=== PATIENT | male | born 1970 | race Caucasian/White ===

== ENCOUNTER 2016-08-03 22:17 | Emergency (ER) | payer OTHER ==
[~2016-08-03] VITALS: Ht 180.3 cm; Wt 85.9 kg
[~2016-08-03 22:17] MED LIST: AUGM875T27 PO; CELE20TA PO; CITA20TA2 PO; FLAG500T PO; FLUTISP; HYDR-3713 PO; PEPC1TAB4 PO; PEPT262S PO; PRIL20CA PO; PRIL40CA PO; VIST50CA PO
[2016-08-03 23:00] VITALS: BP 120/58
[2016-08-04 00:45] LABS: BASO # 0.1 K/mm3 (0.0-0.2); BASO % 0.8 % (0.0-1.0); EOS # 0.3 K/mm3 (0.0-0.50); EOS % 3.4 % (0.0-3.0); LARGE UNSTAINED CELL # 0.2 K/mm3 (0.0-0.4); LYMPH # 2.5 K/mm3 (1.5-4.5); LYMPH % 25.6 % (24.0-44.0); MEAN CORPUSCULAR HEMOGLOBIN 31.3 pg (27.0-33.0); MEAN CORPUSCULAR HGB CONC 35.7 g/dl (32.0-36.5); MEAN CORPUSCULAR VOLUME 87.7 fl (80.0-96.0); MONO # 0.8 K/mm3 (0.0-0.8); MONO % 7.8 % (0.0-5.0); NEUTROPHILS % 60.4 % (36.0-66.0); PLATELET COUNT, AUTOMATED 245 k/mm3 (150-450); RED CELL DISTRIBUTION WIDTH 12.4 % (11.5-14.5); WHITE BLOOD COUNT 9.9 K/mm3 (4.0-10.0)
--- NOTE | 2016-08-04 00:51 | REP ---
Clinical: Chest pain and dyspnea. Rule out pneumonia . Comparison: None . Technique: PA and lateral. Findings: The mediastinum and cardiac silhouette are normal. The lung george are clear and without acute consolidation, effusion, or pneumothorax. The skeletal structures are intact and normal. Impression: 1. No acute cardiopulmonary process. Signed by Marquez Borrero MD 08/04/2016 12:43 A
[2016-08-04 01:05] LABS: METHADONE URINE NEGATIVE (NEGATIVE)
[2016-08-04 01:09] LABS: ANION GAP 4 MEQ/L (8-16); BLOOD UREA NITROGEN 19 MG/DL (7-18); CALCIUM LEVEL 9.1 MG/DL (8.5-10.1); CARBON DIOXIDE LEVEL 28 MEQ/L (21-32); CHLORIDE LEVEL 106 MEQ/L (98-107); CREATININE FOR GFR 0.91 MG/DL (0.70-1.30); GLOMERULAR FILTRATION RATE > 60.0 (>60); GLUCOSE, FASTING 98 MG/DL (70-105); MAGNESIUM LEVEL 2.2 MG/DL (1.8-2.4); POTASSIUM SERUM 3.8 MEQ/L (3.5-5.1); SODIUM LEVEL 138 MEQ/L (136-145)
[2016-08-04] MEDS ORDERED: SODIUM CHLORIDE 0.9% 1000 ML IV ONE (01:30)
== END 2016-08-04 01:56 | disposition home or self-care (01) ==
LOC: M ED 23:24
DX: B34.9 Viral infection, unspecified (principal)

== ENCOUNTER 2016-10-24 10:54 | Emergency (ER) | payer MEDICAID, OTHER, SELFPAY ==
[~2016-10-24] VITALS: Ht 180.3 cm; Wt 85.0 kg
[~2016-10-24 10:54] MED LIST changes: -AUGM875T27 PO; +AUGM875T28 PO
[2016-10-24] MEDS ORDERED: IBUP80TA PO (11:55)
[2016-10-24] MEDS ORDERED: ROBA500T PO (11:55)
[2016-10-24] MEDS ORDERED: KETOROLAC 60 MG/2 ML VIAL (J1885) IM ONE (12:00)
[2016-10-24] MEDS ORDERED: METHOCARBAMOL 500 MG TAB PO ONE (12:00)
[2016-10-24 12:35] VITALS: BP 132/71
== END 2016-10-24 12:36 | disposition home or self-care (01) ==
LOC: M ED 10:54
DX: S39.012A Strain of muscle, fascia and tendon of lower back, initial encounter (principal); Z72.0 Tobacco use; X50.1XXA Overexertion from prolonged static or awkward postures, initial encounter; Y92.410 Unspecified street and highway as the place of occurrence of the external cause; Y93.01 Activity, walking, marching and hiking; Y99.9 Unspecified external cause status
CPT/HCPCS: 96372; 99282; J1885

== ENCOUNTER 2017-03-14 17:19 | Emergency (ER) | payer SELFPAY ==
[2017-03-14] MEDS: ONDANSETRON 4 MG ORAL DISINTEGRATING TAB (S0181) PO (21:36)
[2017-03-14 21:50] LABS: KETONE, URINE AUTO RFX 1+ mg/dL (NEGATIVE); LEUKOCYTE ESTERASE UR AUTO RFX NEGATIVE (NEGATIVE); MUCUS, URINE RFX SMALL (NEGATIVE); NITRITE, URINE AUTO RFX NEGATIVE (NEGATIVE); RBC, URINE AUTO RFX 5 /HPF (0-3); SPECIFIC GRAVITY UR AUTO RFX 1.023 (1.002-1.035); SQUAM EPITHELIAL CELL UR AURFX 0 /HPF (0-6); WBC, URINE AUTO RFX 0 /HPF (0-3)
[2017-03-14 22:15] LABS: INFLUENZA A AMPLIFICATION NEGATIVE (NEGATIVE); INFLUENZA B AMPLIFICATION NEGATIVE (NEGATIVE)
[2017-03-14 22:41] LABS: BASO # 0.1 10^3/uL (0.0-0.2); BASO % 0.5 % (0.0-1.0); EOS # 0.2 10^3/uL (0.0-0.50); EOS % 1.5 % (0.0-3.0); HEMATOCRIT 45.2 % (42.0-52.0); HEMOGLOBIN 15.4 g/dl (14.0-18.0); IMMATURE GRANULOCYTE % 0.2 % (0-0); LYMPH # 2.4 10^3/uL (1.5-4.5); LYMPH % 22.5 % (24.0-44.0); MEAN CORPUSCULAR HEMOGLOBIN 29.4 pg (27.0-33.0); MEAN CORPUSCULAR HGB CONC 34.1 g/dl (32.0-36.5); MEAN CORPUSCULAR VOLUME 86.3 fl (80.0-96.0); MONO # 0.9 10^3/uL (0.0-0.8); MONO % 8.7 % (0.0-5.0); NEUTROPHILS % 66.6 % (36.0-66.0); PLATELET COUNT, AUTOMATED 256 10^3/uL (150-450); RED BLOOD COUNT 5.24 10^6/uL (4.30-6.10); RED CELL DISTRIBUTION WIDTH 12.7 % (11.5-14.5); WHITE BLOOD COUNT 10.5 10^3/uL (4.0-10.0)
[2017-03-14 23:01] LABS: ALBUMIN 4.3 GM/DL (3.2-5.2); ALBUMIN/GLOBULIN RATIO 1.02 (1.00-1.93); ALKALINE PHOSPHATASE 87 U/L (45-117); ALT/SGPT 139 U/L (12-78); AMYLASE 52 U/L (25-115); ANION GAP 6 MEQ/L (8-16); AST/SGOT 64 U/L (7-37); BILIRUBIN,DIRECT 0.3 MG/DL (0.0-0.2); BILIRUBIN,TOTAL 1.3 MG/DL (0.2-1.0); BLOOD UREA NITROGEN 13 MG/DL (7-18); CALCIUM LEVEL 9.4 MG/DL (8.5-10.1); CARBON DIOXIDE LEVEL 31 MEQ/L (21-32); CHLORIDE LEVEL 102 MEQ/L (98-107); CREATININE FOR GFR 0.89 MG/DL (0.70-1.30); GLOMERULAR FILTRATION RATE > 60.0 (>60); GLUCOSE, FASTING 93 MG/DL (70-100); LIPASE 129 U/L (73-393); POTASSIUM SERUM 3.8 MEQ/L (3.5-5.1); SODIUM LEVEL 139 MEQ/L (136-145); TOTAL PROTEIN 8.5 GM/DL (6.4-8.2)
== END 2017-03-15 00:55 | disposition home or self-care (01) ==
LOC: M ED 03-15 00:55
DX: K82.4 Cholesterolosis of gallbladder (principal); B19.20 Unspecified viral hepatitis C without hepatic coma; F41.9 Anxiety disorder, unspecified; F33.9 Major depressive disorder, recurrent, unspecified; K21.9 Gastro-esophageal reflux disease without esophagitis; R45.4 Irritability and anger; F10.10 Alcohol abuse, uncomplicated; F12.20 Cannabis dependence, uncomplicated; F17.210 Nicotine dependence, cigarettes, uncomplicated
CPT/HCPCS: 76705

== ENCOUNTER 2017-05-04 12:41 | Emergency (ER) | payer OTHER, SELFPAY ==
[2017-05-04] MEDS: MAGIC MOUTHWASH SUSPENSION BTL SS (14:52)
[2017-05-04] MEDS: BENZONATATE 100 MG CAP PO (15:00)
== END 2017-05-04 15:22 | disposition home or self-care (01) ==
LOC: M ED 12:41
DX: J06.9 Acute upper respiratory infection, unspecified (principal); M54.5 Low back pain; B19.20 Unspecified viral hepatitis C without hepatic coma; K21.9 Gastro-esophageal reflux disease without esophagitis; F17.210 Nicotine dependence, cigarettes, uncomplicated
CPT/HCPCS: 99283

== ENCOUNTER 2017-06-29 14:53 | Emergency (ER) | payer OTHER | END 2017-06-29 16:01 | disposition home or self-care (01) | LOC: M ED 14:53 | DX: K04.7 Periapical abscess without sinus (principal); B19.20 Unspecified viral hepatitis C without hepatic coma; F17.210 Nicotine dependence, cigarettes, uncomplicated | CPT/HCPCS: 99282 ==

== ENCOUNTER 2017-08-31 18:06 | Emergency (ER) | payer OTHER ==
[2017-08-31 20:43] LABS: HEMATOCRIT 45.5 % (42.0-52.0); HEMOGLOBIN 15.6 g/dl (13.5-17.5); MEAN CORPUSCULAR HEMOGLOBIN 30.2 pg (27.0-33.0); MEAN CORPUSCULAR HGB CONC 34.3 g/dl (32.0-36.5); MEAN CORPUSCULAR VOLUME 88.2 fl (80.0-96.0); PLATELET COUNT, AUTOMATED 248 10^3/uL (150-450); RED BLOOD COUNT 5.16 10^6/uL (4.30-6.10); RED CELL DISTRIBUTION WIDTH 12.9 % (11.5-14.5); WHITE BLOOD COUNT 10.3 10^3/uL (4.0-10.0)
[2017-08-31 21:05] LABS: AMPHETAMINES LEVEL URINE NEGATIVE (NEGATIVE); BARBITURATES URINE NEGATIVE (NEGATIVE); BENZODIAZEPINES URINE NEGATIVE (NEGATIVE); CANNABINOIDS URINE POSITIVE (NEGATIVE); COCAINE METABOLITE URINE NEGATIVE (NEGATIVE); METHADONE URINE NEGATIVE (NEGATIVE); OPIATES URINE POSITIVE (NEGATIVE); PHENCYCLIDINE URINE NEGATIVE (NEGATIVE)
[2017-08-31 21:13] LABS: ALBUMIN 4.3 GM/DL (3.2-5.2); ALBUMIN/GLOBULIN RATIO 1.08 (1.00-1.93); ALKALINE PHOSPHATASE 79 U/L (45-117); ALT/SGPT 166 U/L (12-78); ANION GAP 9 MEQ/L (8-16); AST/SGOT 67 U/L (7-37); BILIRUBIN,DIRECT 0.4 MG/DL (0.0-0.2); BILIRUBIN,TOTAL 1.5 MG/DL (0.2-1.0); BLOOD UREA NITROGEN 10 MG/DL (7-18); CALCIUM LEVEL 9.3 MG/DL (8.5-10.1); CARBON DIOXIDE LEVEL 27 MEQ/L (21-32); CHLORIDE LEVEL 106 MEQ/L (98-107); CPK CREATINE PHOSPHOKINASE 479 U/L (39-308); CREATININE FOR GFR 0.97 MG/DL (0.70-1.30); ETHYL ALCOHOL (ETHANOL) 0.003 % (0.000-0.010); GLOMERULAR FILTRATION RATE > 60.0 (>60); GLUCOSE, FASTING 101 MG/DL (70-100); POTASSIUM SERUM 4.1 MEQ/L (3.5-5.1); SALICYLATE LEVEL < 1.7 MG/DL (5.0-30.0); SODIUM LEVEL 142 MEQ/L (136-145); THYROID STIMULATING HORMONE 0.595 uIU/ML (0.358-3.740); TOTAL PROTEIN 8.3 GM/DL (6.4-8.2)
[2017-08-31 21:18] LABS: ACETAMINOPHEN LEVEL < 2.0 UG/ML (10.0-30.0)
== END 2017-08-31 22:04 | disposition home or self-care (01) ==
LOC: M ED 18:06
DX: F41.9 Anxiety disorder, unspecified (principal); F19.10 Other psychoactive substance abuse, uncomplicated; K21.9 Gastro-esophageal reflux disease without esophagitis; F32.9 Major depressive disorder, single episode, unspecified; Z72.0 Tobacco use
CPT/HCPCS: 80320

== ENCOUNTER 2018-01-23 11:11 | Emergency (ER) | payer OTHER | END 2018-01-23 11:48 | disposition home or self-care (01) | LOC: M ED 11:11 | DX: K04.7 Periapical abscess without sinus (principal); R68.84 Jaw pain; K08.89 Other specified disorders of teeth and supporting structures; Z86.19 Personal history of other infectious and parasitic diseases; Z72.0 Tobacco use; Z79.899 Other long term (current) drug therapy | CPT/HCPCS: 99282 ==

== ENCOUNTER 2018-02-07 12:26 | Emergency (ER) | payer OTHER ==
[~2018-02-07] VITALS: Ht 180.3 cm; Wt 81.8 kg
[~2018-02-07 12:26] MED LIST changes: +CLON-412 PO; +FLON1SPR; +HYDR50TA70 PO; +IBUP80TA PO; +MAGICMW MT; +NORCOTAB PO; +OLAN5TAB PO; +PENI500T OR; +PENI500T PO; -PEPC1TAB4 PO; +PEPC1TAB5 PO; +PERC5TAB12 PO; +ROBA500T PO; +SUDA30TA8 PO; +TESS100C PO; +ZOFR4TAB14 PO
--- NOTE | 2018-02-07 13:39 | REP ---
Clinical: Erythema and swelling. Evaluate for abscess. Technique: Real time christensen scale and color evaluation using linear high frequency transducer. Findings: Directed ultrasound examination of the antecubital fossa in the region of maximal erythema and swelling demonstrates a complex subcutaneous collection adjacent to the median cubital vein measuring 3.3 x 1.4 x 2.3 cm suggesting phlegmon/abscess. Impression: Complex collection suggesting phlegmon/abscess. Electronically Signed by Marquez Borrero MD 02/07/2018 01:32 P
[2018-02-07 14:02] LABS: HEMATOCRIT 46.3 % (42.0-52.0); HEMOGLOBIN 15.9 g/dl (13.5-17.5); MEAN CORPUSCULAR HEMOGLOBIN 29.8 pg (27.0-33.0); MEAN CORPUSCULAR HGB CONC 34.3 g/dl (32.0-36.5); MEAN CORPUSCULAR VOLUME 86.9 fl (80.0-96.0); PLATELET COUNT, AUTOMATED 257 10^3/uL (150-450); RED BLOOD COUNT 5.33 10^6/uL (4.30-6.10); WHITE BLOOD COUNT 11.2 10^3/uL (4.0-10.0)
[2018-02-07] MEDS ORDERED: BACT800T5 PO (14:22)
[2018-02-07 14:27] VITALS: BP 136/72
== END 2018-02-07 14:28 | disposition home or self-care (01) ==
LOC: M ED 12:26
DX: L03.114 Cellulitis of left upper limb (principal); B19.20 Unspecified viral hepatitis C without hepatic coma; K21.9 Gastro-esophageal reflux disease without esophagitis; F41.9 Anxiety disorder, unspecified; Z79.899 Other long term (current) drug therapy; F17.210 Nicotine dependence, cigarettes, uncomplicated

== ENCOUNTER 2018-03-23 15:56 | Inpatient (IN) | payer MEDICAID, OTHER ==
[~2018-03-23] VITALS: Ht 180.3 cm; Wt 82.0 kg
[~2018-03-23 15:56] MED LIST changes: +BACT800T5 PO
[2018-03-23 17:26] LABS: HEMATOCRIT 45.6 % (42.0-52.0); HEMOGLOBIN 15.5 g/dl (13.5-17.5); MEAN CORPUSCULAR HEMOGLOBIN 29.8 pg (27.0-33.0); MEAN CORPUSCULAR VOLUME 87.5 fl (80.0-96.0); PLATELET COUNT, AUTOMATED 248 10^3/uL (150-450); RED BLOOD COUNT 5.21 10^6/uL (4.30-6.10); WHITE BLOOD COUNT 10.3 10^3/uL (4.0-10.0)
[2018-03-23 17:46] LABS: ACETAMINOPHEN LEVEL < 2.0 UG/ML (10.0-30.0); ALBUMIN 3.8 GM/DL (3.2-5.2); ALT/SGPT 81 U/L (12-78); BILIRUBIN,DIRECT 0.2 MG/DL (0.0-0.2); BILIRUBIN,TOTAL 0.8 MG/DL (0.2-1.0); BLOOD UREA NITROGEN 14 MG/DL (7-18); CALCIUM LEVEL 8.9 MG/DL (8.5-10.1); CARBON DIOXIDE LEVEL 28 MEQ/L (21-32); CHLORIDE LEVEL 104 MEQ/L (98-107); CREATININE FOR GFR 0.88 MG/DL (0.70-1.30); ETHYL ALCOHOL (ETHANOL) < 0.003 % (0.000-0.010); GLOMERULAR FILTRATION RATE > 60.0 (>60); GLUCOSE, FASTING 92 MG/DL (70-100); SALICYLATE LEVEL < 1.7 MG/DL (5.0-30.0); SODIUM LEVEL 139 MEQ/L (136-145); THYROID STIMULATING HORMONE 0.099 uIU/ML (0.358-3.740); TOTAL PROTEIN 7.1 GM/DL (6.4-8.2)
[2018-03-23 17:50] LABS: AMPHETAMINES LEVEL URINE POSITIVE (NEGATIVE); BARBITURATES URINE NEGATIVE (NEGATIVE); BENZODIAZEPINES URINE NEGATIVE (NEGATIVE); CANNABINOIDS URINE POSITIVE (NEGATIVE); COCAINE METABOLITE URINE NEGATIVE (NEGATIVE); METHADONE URINE NEGATIVE (NEGATIVE); OPIATES URINE NEGATIVE (NEGATIVE); PHENCYCLIDINE URINE NEGATIVE (NEGATIVE)
[2018-03-23 18:08] LABS: FREE T4 1.22 NG/DL (0.76-1.46)
[2018-03-23] MEDS ORDERED: MAALOX 30 ML SUSP *UDC PO PRN (20:15)
[2018-03-23] MEDS ORDERED: MOM 30ML SUSPENSION UDC PO PRN (20:15)
[2018-03-23] MEDS ORDERED: ACETAMINOPHEN TAB 650MG DOSE (2X325MG) PO PRN (20:15)
[2018-03-23 21:59] VITALS: BP 110/69
[2018-03-23] MEDS ORDERED: OLANZapine ORAL DISINTEGRATING TAB 5MG PO PRN (22:30)
[2018-03-24 06:40] VITALS: BP 118/60
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
[2018-03-24 12:17] VITALS: BP 139/60
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
[2018-03-24] MEDS: GABAPENTIN 100 MG CAP PO SCH ×2 (15:18→20:15)
[2018-03-24] MEDS: MUPIROCIN 2% OINT 22 GM TUBE TOP PRN (15:19)
[2018-03-24] MEDS ORDERED: GABAPENTIN 100 MG CAP PO SCH (16:00)
[2018-03-24 18:00] VITALS: BP 119/60
[2018-03-24] MEDS: SERTRALINE HCL 50 MG TAB PO SCH (20:15)
[2018-03-24] MEDS: traZODone 50 MG TAB PO PRN (20:15)
--- NOTE | 2018-03-24 21:43 | ECGEPIP ---
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
[2018-03-25 06:26] VITALS: BP 106/64
[2018-03-25 07:04] LABS: HEMATOCRIT 45.3 % (42.0-52.0); HEMOGLOBIN 15.1 g/dl (13.5-17.5); MEAN CORPUSCULAR HEMOGLOBIN 29.5 pg (27.0-33.0); MEAN CORPUSCULAR HGB CONC 33.3 g/dl (32.0-36.5); MEAN CORPUSCULAR VOLUME 88.5 fl (80.0-96.0); PLATELET COUNT, AUTOMATED 216 10^3/uL (150-450); RED BLOOD COUNT 5.12 10^6/uL (4.30-6.10); WHITE BLOOD COUNT 6.5 10^3/uL (4.0-10.0)
[2018-03-25 07:31] LABS: FREE THYROXINE INDEX 2.2 % (1.4-3.8); THYROID STIMULATING HORMONE 0.35 uIU/ML (0.358-3.740)
[2018-03-25] MEDS: GABAPENTIN 100 MG CAP PO SCH ×3 (08:02→20:06)
--- NOTE | 2018-03-25 11:23 | REP ---
THYROID SONOGRAPHY: HISTORY: Abnormal thyroid function studies. FINDINGS: Thyroid isthmus measures 0.4 cm in thickness. Right lobe dimensions are 5.7 x 1.9 x 2.5 cm. Left lobe measures 5.6 x 2.2 x 1.9 cm. The thyroid gland is not felt to be enlarged. There are multiple focal tiny subcentimeter hypoechoic areas in each thyroid lobe. The largest focal lesion is in the left lobe measuring 0.5 cm in greatest diameter. This is a complex cyst. There is a second 0.5 cm cyst in the upper pole on the left, and a 0.5 cm nodule is seen in the lower pole on the left which appears solid. There are three nodules in the right lobe measuring 0.4, 0.5, and 0.4 cm in greatest diameter, respectively. IMPRESSION: Multiple tiny bilateral thyroid nodules. No suspicious abnormality. Electronically Signed by Sami Landa MD 03/25/2018 10:19 P
[2018-03-25] MEDS: MUPIROCIN 2% OINT 22 GM TUBE TOP PRN (13:26)
--- NOTE | 2018-03-25 15:38 | MHIPNPDOC ---
[facility] Progress Note Progress Note DATE OF SERVICE: 03/25/18 HISTORY OF THE PRESENT ILLNESS: Patient is a 47 -year-old , male, who as per ED records: " pt states, "I'm so sick of my life and I have terrible depression." Pt reports struggling with on-going depression and anxiety. Admits feeling increasingly distressed over the past few weeks due to housing problems. States he is currently homeless and has been staying at the [facility] for the past few months. He apparently got evicted from his apt due to excessive police involvement. He reports frequently getting the police involved due to believing people are following him and "breaking into his apt leaving meth bottles." Pt states, "these people keep following me and I plan to kill them if I can find them." He continues to express SI(no plan) and HI with plan for gunshot. He is not currently in mental health treatment at this time. States he's been seeing [facility] for his substance abuse issues(Marijuana & Meth) and expressed his frustrations to counselor. Pt feels his depression is getting worse and states, "I feel like I'm going backwards instead moving forward." VITAL SIGNS: See below. NEW TEST RESULTS: See below CURRENT MEDICATIONS: See below. MENTAL STATUS EXAM General Appearance: unkempt, hospital scubs/clothing Build: thin Demeanor: preoccupied, guarded Eye Contact: avoidant Activity: anxious Behavior: cooperative, resistant, restless Speech: clear, spontaneous, reg/rate,rhythm,volume Mood: depressed, anxious, irritable Affect: full, appropriate, congruent, anxious Thought Process: logical/linear Thought Content (Delusions): persecutory, paranoia Thought Content (Other): preoccupied, guarded, ideas of reference, appears paranoid Thought Content (Aggressive): other (He has homicidal ideationd and he is very angry, he says if he had a gun with him, he would shoot his entire family) Perception (Hallucinations): none reported Perception (Other): none reported Cognition (Impairment of): none reported Cognition(Intelligence Est.): average Oriented: Awake, Alert, Oriented times three Insight: poor Judgment: Poor Psychosis: Denies ASSESSMENT: Patient was interviewed in the office. He continues to have delusions of paranoia and persecution. He says he wants to "catch" whomever he believes is breaking into his apartment and still has anger that no one in his life believes him. He does not directly admit to homicidal ideations but they are present when discussing whom he believes is breaking in. Paranoia and delusions are present. He has no suicidal ideations. Vital Signs Vital Signs Date Time Temp Pulse Resp B/P (MAP) Pulse Ox O2 Delivery O2 Flow Rate FiO2 03/25/18 06:26 97.9 66 14 106/64 (78) 03/23/18 19:31 97 Room Air Laboratory Data 24H Labs Laboratory Tests 2 03/24/18 17:30: Urine Color YELLOW, Urine Appearance CLEAR, Urine pH 5.0, Urine Specific [place] 1.021, Urine Protein NEGATIVE, Urine Glucose (UA) NEGATIVE, Urine Ketones NEGATIVE, Urine Blood 1+H, Urine Nitrite NEGATIVE, Urine Bilirubin NEGATIVE, Urine Urobilinogen 2.0H, Urine Leukocyte Esterase NEGATIVE, Urine WBC (Auto) 1, Urine RBC (Auto) 4H, Urine Hyaline Casts (Auto) 0, Urine Bacteria (Auto) NEGATIVE, Urine Squamous Epithelial Cells 0, Urine Calcium Oxalate Cryst (Auto) MODERATE, Urine Mucus (Auto) SMALL, Urine Sperm (Auto) 03/25/18 06:47: Nucleated Red Blood Cells % (auto) 0.0, Thyroid Stimulating Hormone (TSH) 0.350L, Free Thyroxine Index 2.2, Thyroxine (T4) 7.0, Triiodothyronine (T3) Uptake 32L CBC/BMP Laboratory Tests 03/25/18 06:47 Red Blood Count 5.12, Mean Corpuscular Volume 88.5, Mean Corpuscular Hemoglobin 29.5, Mean Corpuscular Hemoglobin Concent 33.3, Red Cell Distribution Width 12.6 Current Medications Current Medications Acetaminophen (Tylenol Tab) 650 mg Q6HP PRN PO HEADACHE or DISCOMFORT; Start 03/23/18 at 20:15 Al Hydrox/Mg Hydrox/Simethicone (Mylanta) 30 ml Q4HP PRN PO HEARTBURN/INDIGESTION; Start 03/23/18 at 20:15 Gabapentin (Neurontin) 100 mg TID PO Last administered on 03/25/18at 15:14; Start 03/24/18 at 16:00 Gabapentin (Neurontin) 200 mg TID PO ; Start 03/24/18 at 16:00; Stop 03/24/18 at 16:00; Status DC Home Med (Med Rec Complete!) ASDIRECTED XX ; Start 03/23/18 at 18:30; Stop 03/23/18 at 18:31; Status DC Magnesium Hydroxide (Milk Of Magnesia) 30 ml DAILYPRN PRN PO CONSTIPATION; Start 03/23/18 at 20:15 Mupirocin (Bactroban 2% Ointment) 1 dose BID PRN TOP REDNESS/IRRITATION Last administered on 03/25/18at 13:26; Start 03/24/18 at 10:15 Olanzapine (ZyPREXA ZYDIS) 5 mg Q4HP PRN PO ANXIETY/AGITATION; Start 03/23/18 at 22:30; Stop 03/24/18 at 15:08; Status DC Olanzapine (ZyPREXA ZYDIS) 5 mg Q6HP PRN PO ANXIETY/AGITATION; Start 03/24/18 at 15:15 Paliperidone (Invega) 3 mg BID PO ; Start 03/25/18 at 21:00 Sertraline HCl (Zoloft) 50 mg QHS PO Last administered on 03/24/18at 20:15; Start 03/24/18 at 21:00 Trazodone HCl (Desyrel) 50 mg QHSP PRN PO INSOMNIA Last administered on 03/24/18at 20:15; Start 03/23/18 at 20:15 Allergies Coded Allergies: No Known Drug Allergy (Verified Allergy, Unknown, 03/23/18) GME ATTESTATION GME ATTESTATION My faculty preceptor for this patient encounter was physically present during the encounter and was fully available. All aspects of the patient interview, examination, medical decision making process, and medical care plan development were reviewed and approved by the faculty preceptor. The faculty preceptor is aware and concurs with the plan as stated in the body of this note and will attest to such by his/her cosignature. JOLLY TAI OMS-III Mar 25, 2018 15:38
[2018-03-25 18:00] VITALS: BP 110/73
[2018-03-25] MEDS: SERTRALINE HCL 50 MG TAB PO SCH (20:06)
[2018-03-25] MEDS: traZODone 50 MG TAB PO PRN (20:06)
[2018-03-25] MEDS: PALIPERIDONE 3 MG ER TAB (INVEGA) PO SCH (20:06)
[2018-03-26 06:33] VITALS: BP 111/58
[2018-03-26] MEDS: PALIPERIDONE 3 MG ER TAB (INVEGA) PO SCH ×2 (08:08→20:58)
[2018-03-26] MEDS: GABAPENTIN 100 MG CAP PO SCH ×3 (08:08→20:58)
--- NOTE | 2018-03-26 09:18 | MHIPNPDOC ---
[facility] Progress Note Progress Note DATE OF SERVICE: 03/26/18 HISTORY OF THE PRESENT ILLNESS: Patient is a 47 -year-old , male, who as per ED records: " pt states, "I'm so sick of my life and I have terrible depression." Pt reports struggling with on-going depression and anxiety. Admits feeling increasingly distressed over the past few weeks due to housing problems. States he is currently homeless and has been staying at the [facility] for the past few months. He apparently got evicted from his apt due to excessive police involvement. He reports frequently getting the police involved due to believing people are following him and "breaking into his apt leaving meth bottles." Pt st ates, "these people keep following me and I plan to kill them if I can find them." He continues to express SI(no plan) and HI with plan for gunshot. He is not currently in mental health treatment at this time. States he's been seeing [facility] for his substance abuse issues(Marijuana & Meth) and expressed his frustrations to counselor. Pt feels his depression is getting worse and states, "I feel like I'm going backwards instead moving forward." VITAL SIGNS: See below. NEW TEST RESULTS: Thyroid and neck u/s. Impression: Multiple tiny bilateral thyroid nodules. No suspicious abnormality. CURRENT MEDICATIONS: See below. MENTAL STATUS EXAM General Appearance: unkempt, hospital scubs/clothing Build: thin Demeanor: preoccupied, guarded Eye Contact: avoidant Activity: anxious Behavior: cooperative, resistant, restless Speech: clear, spontaneous, reg/rate,rhythm,volume Mood: depressed, anxious, irritable Affect: full, appropriate, congruent, anxious Thought Process: logical/linear Thought Content (Delusions): persecutory, paranoia Thought Content (Other): preoccupied, guarded, ideas of reference, appears paranoid Thought Content (Aggressive): other (He has homicidal ideations and he is very angry, he says if he he wishes he could go out and buy a gun) Perception (Hallucinations): none reported Perception (Other): none reported Cognition (Impairment of): none reported Cognition(Intelligence Est.): average Oriented: Awake, Alert, Oriented times three Insight: poor Judgment: Poor Psychosis: Denies ASSESSMENT: Patient was interviewed in the office. He continues to have d elusions of paranoia and persecution. Rohith's depressive symptoms are less than what they were on admission. He still has homicidal ideations and discusses his anger and how if he could get a gun he would. He states that today he is more drowsy. He says he went to all the group sessions yesterday and plans to go to them today. He says that at the group yesterday they discussed anger. He did not want to talk to the group about his anger from him believing people are breaking into his apartment, but he says he will continue to talk to us one on one about it. He denies suicidal ideations, denies AV hallucinations. Vital Signs Vital Signs Date Time Temp Pulse Resp B/P (MAP) Pulse Ox O2 Delivery O2 Flow Rate FiO2 03/26/18 06:33 98.9 56 14 111/58 (75) 03/23/18 19:31 97 Room Air Current Medications Current Medications Acetaminophen (Tylenol Tab) 650 mg Q6HP PRN PO HEADACHE or DISCOMFORT; Start 03/23/18 at 20:15 Al Hydrox/Mg Hydrox/Simethicone (Mylanta) 30 ml Q4HP PRN PO HEARTBURN/INDIGESTION; Start 03/23/18 at 20:15 Gabapentin (Neurontin) 100 mg TID PO Last administered on 03/26/18at 08:08; Start 03/24/18 at 16:00 Gabapentin (Neurontin) 200 mg TID PO ; Start 03/24/18 at 16:00; Stop 03/24/18 at 16:00; Status DC Home Med (Med Rec Complete!) ASDIRECTED XX ; Start 03/23/18 at 18:30; Stop 03/23/18 at 18:31; Status DC Magnesium Hydroxide (Milk Of Magnesia) 30 ml DAILYPRN PRN PO CONSTIPATION; Start 03/23/18 at 20:15 Mupirocin (Bactroban 2% Ointment) 1 dose BID PRN TOP REDNESS/IRRITATION Last administered on 03/25/18at 13:26; Start 03/24/18 at 10:15 Olanzapine (ZyPREXA ZYDIS) 5 mg Q4HP PRN PO ANXIETY/AGITATION; Start 03/23/18 at 22:30; Stop 03/24/18 at 15:08; Status DC Olanzapine (ZyPREXA ZYDIS) 5 mg Q6HP PRN PO ANXIETY/AGITATION; Start 03/24/18 at 15:15 Paliperidone (Invega) 3 mg BID PO Last administered on 03/26/18at 08:08; Start 03/25/18 at 21:00 Sertraline HCl (Zoloft) 50 mg QHS PO Last administered on 03/25/18at 20:06; Start 03/24/18 at 21:00 Trazodone HCl (Desyrel) 50 mg QHSP PRN PO INSOMNIA Last administered on 03/25/18at 20:06; Start 03/23/18 at 20:15 Allergies Coded Allergies: No Known Drug Allergy (Verified Allergy, Unknown, 03/23/18) GME ATTESTATION GME ATTESTATION My faculty preceptor for this patient encounter was physically present during the encounter and was fully available. All aspects of the patient interview, examination, medical decision making process, and medical care plan development were reviewed and approved by the faculty preceptor. The faculty preceptor is aware and concurs with the plan as stated in the body of this note and will attest to such by his/her cosignature. JOLLY TAI OMS-III Mar 26, 2018 09:18
[2018-03-26 18:00] VITALS: BP 126/67
[2018-03-26] MEDS: traZODone 50 MG TAB PO PRN (20:58)
[2018-03-26] MEDS: SERTRALINE HCL 50 MG TAB PO SCH (20:58)
[2018-03-27 06:00] VITALS: BP 114/67
[2018-03-27] MEDS: PALIPERIDONE 3 MG ER TAB (INVEGA) PO SCH ×2 (08:19→20:44)
[2018-03-27] MEDS: GABAPENTIN 100 MG CAP PO SCH ×3 (08:19→20:44)
[2018-03-27] MEDS: OLANZapine ORAL DISINTEGRATING TAB 5MG PO PRN (12:24)
[2018-03-27 18:00] VITALS: BP 104/58
[2018-03-27] MEDS: traZODone 50 MG TAB PO PRN (20:44)
[2018-03-27] MEDS: SERTRALINE HCL 50 MG TAB PO SCH (20:44)
[2018-03-28 06:00] VITALS: BP 119/65
[2018-03-28] MEDS: GABAPENTIN 100 MG CAP PO SCH ×3 (08:04→20:41)
[2018-03-28] MEDS: PALIPERIDONE 3 MG ER TAB (INVEGA) PO SCH ×2 (08:04→20:41)
--- NOTE | 2018-03-28 16:48 | MHIPN ---
DATE: 03/27/2018 CHIEF COMPLAINT: Feels anxious. SUBJECTIVE: Is seen for followup in the presence of staff. Says feels a bit anxious, particularly when he sits up, but that otherwise he has been doing better. Says sleep is improved, as has appetite. His mind tends to race, but not as quickly or intensely. He is also not as preoccupied with others trying to harm him. MENTAL STATUS EXAMINATION: He is neat. He is cooperative. There is no agitation. No psychomotor retardation as such. He is coherent with a restricted affect, which shows reactivity. Appears mildly anxious. Denies any suicidal thoughts or intents at present. No homicidal ideas or intents. No overt psychotic features elicited, though suspicions may be of a paranoid type. Does not appear internally preoccupied. Judgment is questionable. Insight is somewhat improved. ASSESSMENT: 1. Unspecified mood disorder. 2. Amphetamine use disorder. 3. Cannabis use disorder. The possibility of major depressive disorder with psychotic features is also to be taken into consideration. PLAN: Continue current care, observations, medications, and I would suggest further recommendations are made depending on the clinical picture. He is to be encouraged to participate in activities in the unit. VITAL SIGNS: These are as listed. Blood pressure 114/67, pulse 65, temperature 98.1.
[2018-03-28 18:00] VITALS: BP 120/69
[2018-03-28] MEDS: traZODone 50 MG TAB PO PRN (20:41)
[2018-03-28] MEDS: SERTRALINE HCL 50 MG TAB PO SCH (20:41)
[2018-03-29 06:52] VITALS: BP 110/59
[2018-03-29] MEDS: PALIPERIDONE 3 MG ER TAB (INVEGA) PO SCH ×2 (08:02→20:07)
[2018-03-29] MEDS: GABAPENTIN 100 MG CAP PO SCH ×3 (08:02→20:07)
--- NOTE | 2018-03-29 14:34 | MHIPNPDOC ---
[facility] Progress Note Progress Note DATE OF SERVICE: 03/29/18 HISTORY OF THE PRESENT ILLNESS: Patient is a 47 -year-old , male, who as per ED records: " pt states, "I'm so sick of my life and I have terrible depression." Pt reports struggling with on-going depression and anxiety. Admits feeling increasingly distressed over the past few weeks due to housing problems. States he is currently homeless and has been staying at the [facility] for the past few months. He apparently got evicted from his apt due to excessive police involvement. He reports frequently getting the police involved due to believing people are following him and "breaking into his apt leaving meth bottles." Pt s tates, "these people keep following me and I plan to kill them if I can find them." He continues to express SI(no plan) and HI with plan for gunshot. He is not currently in mental health treatment at this time. States he's been seeing [facility] for his substance abuse issues(Marijuana & Meth) and expressed his frustrations to counselor. Pt feels his depression is getting worse and states, "I feel like I'm going backwards instead moving forward." VITAL SIGNS: See below. NEW TEST RESULTS: Thyroid and neck u/s. Impression: Multiple tiny bilateral thyroid nodules. No suspicious abnormality. CURRENT MEDICATIONS: See below. MENTAL STATUS EXAM General Appearance: unkempt, hospital scubs/clothing Build: thin Demeanor: guarded, pleasant Eye Contact: average Activity: anxious Behavior: cooperative Speech: clear, spontaneous, reg/rate,rhythm,volume Mood: depressed, anxious, irritable Affect: full, appropriate, congruent, anxious Thought Process: logical/linear Thought Content (Delusions): denies Thought Content (Other): preoccupied Thought Content (Aggressive): denies Perception (Hallucinations): none reported Perception (Other): none reported Cognition (Impairment of): none reported Cognition(Intelligence Est.): average Oriented: Awake, Alert, Oriented times three Insight: average Judgment: Poor Psychosis: Denies ASSESSMENT: Patient was interviewed and he says that he is feeling better. He still has some anxiety but it is lessened since admission. Today he denies suicidal ideations, no homicidal ideations, denies paranoia, denies AV hallucinations. Vital Signs Vital Signs Date Time Temp Pulse Resp B/P (MAP) Pulse Ox O2 Delivery O2 Flow Rate FiO2 03/29/18 06:52 97.3 59 14 110/59 (76) 03/23/18 19:31 97 Room Air Current Medications Current Medications Acetaminophen (Tylenol Tab) 650 mg Q6HP PRN PO HEADACHE or DISCOMFORT; Start 03/23/18 at 20:15 Al Hydrox/Mg Hydrox/Simethicone (Mylanta) 30 ml Q4HP PRN PO HEARTBURN/INDIGESTION; Start 03/23/18 at 20:15 Gabapentin (Neurontin) 100 mg TID PO Last administered on 03/29/18at 08:02; Start 03/24/18 at 16:00 Gabapentin (Neurontin) 200 mg TID PO ; Start 03/24/18 at 16:00; Stop 03/24/18 at 16:00; Status DC Home Med (Med Rec Complete!) ASDIRECTED XX ; Start 03/23/18 at 18:30; Stop at 18:31; Status DC Magnesium Hydroxide (Milk Of Magnesia) 30 ml DAILYPRN PRN PO CONSTIPATION; Start 03/23/18 at 20:15 Mupirocin (Bactroban 2% Ointment) 1 dose BID PRN TOP REDNESS/IRRITATION Last administered on 03/25/18at 13:26; Start 03/24/18 at 10:15 Olanzapine (ZyPREXA ZYDIS) 5 mg Q4HP PRN PO ANXIETY/AGITATION; Start 03/23/18 at 22:30; Stop 03/24/18 at 15:08; Status DC Olanzapine (ZyPREXA ZYDIS) 5 mg Q6HP PRN PO ANXIETY/AGITATION Last administered on 03/27/18at 12:24; Start 03/24/18 at 15:15 Paliperidone (Invega) 3 mg BID PO Last administered on 03/29/18at 08:02; Start 03/25/18 at 21:00; Stop 03/29/18 at 10:39; Status DC Paliperidone (Invega) 3 mg QAM PO ; Start 03/30/18 at 09:00 Paliperidone (Invega) 6 mg QHS PO ; Start 03/29/18 at 21:00 Sertraline HCl (Zoloft) 50 mg QHS PO Last administered on 03/28/18at 20:41; Start 03/24/18 at 21:00 Trazodone HCl (Desyrel) 50 mg QHSP PRN PO INSOMNIA Last administered on 03/28/18at 20:41; Start 03/23/18 at 20:15 Allergies Coded Allergies: No Known Drug Allergy (Verified Allergy, Unknown, 03/23/18) GME ATTESTATION GME ATTESTATION My faculty preceptor for this patient encounter was physically present during the encounter and was fully available. All aspects of the patient interview, examination, medical decision making process, and medical care plan development were reviewed and approved by the faculty preceptor. The faculty preceptor is aware and concurs with the plan as stated in the body of this note and will attest to such by his/her cosignature. JOLLY TAI OMS-III Mar 29, 2018 14:34
[2018-03-29 18:00] VITALS: BP 125/71
[2018-03-29] MEDS: SERTRALINE HCL 50 MG TAB PO SCH (20:07)
[2018-03-29] MEDS: traZODone 50 MG TAB PO PRN (20:08)
[2018-03-29] MEDS ORDERED: PALIPERIDONE 3 MG ER TAB (INVEGA) PO SCH (21:00)
[2018-03-30 06:42] VITALS: BP 122/59
[2018-03-30] MEDS: GABAPENTIN 100 MG CAP PO SCH ×3 (07:57→20:27)
[2018-03-30] MEDS: PALIPERIDONE 3 MG ER TAB (INVEGA) PO SCH ×2 (07:57→20:27)
[2018-03-30] MEDS ORDERED: PALIPERIDONE 3 MG ER TAB (INVEGA) PO SCH (09:00)
--- NOTE | 2018-03-30 14:41 | MHIPNPDOC ---
[facility] Progress Note Progress Note DATE OF SERVICE: 03/30/18 HISTORY OF THE PRESENT ILLNESS: Patient is a 47 -year-old , male, who as per ED records: " pt states, "I'm so sick of my life and I have terrible depression." Pt reports struggling with on-going depression and anxiety. Admits feeling increasingly distressed over the past few weeks due to housing problems. States he is currently homeless and has been staying at the [facility] for the past few months. He apparently got evicted from his apt due to excessive police involvement. He reports frequently getting the police involved due to believing people are following him and "breaking into his apt leaving meth bottles." Pt s tates, "these people keep following me and I plan to kill them if I can find them." He continues to express SI(no plan) and HI with plan for gunshot. He is not currently in mental health treatment at this time. States he's been seeing [facility] for his substance abuse issues(Marijuana & Meth) and expressed his frustrations to counselor. Pt feels his depression is getting worse and states, "I feel like I'm going backwards instead moving forward." VITAL SIGNS: See below. NEW TEST RESULTS: Thyroid and neck u/s. Impression: Multiple tiny bilateral thyroid nodules. No suspicious abnormality. CURRENT MEDICATIONS: See below. MENTAL STATUS EXAM General Appearance: unkempt, hospital scubs/clothing Build: thin Demeanor: guarded, pleasant Eye Contact: average Activity: anxious Behavior: cooperative Speech: clear, spontaneous, reg/rate,rhythm,volume Mood: average Affect: full, appropriate, congruent Thought Process: logical/linear Thought Content (Delusions): denies Thought Content (Other): preoccupied Thought Content (Aggressive): denies Perception (Hallucinations): none reported Perception (Other): none reported Cognition (Impairment of): none reported Cognition(Intelligence Est.): average Oriented: Awake, Alert, Oriented times three Insight: average Judgment: limited Psychosis: Denies ASSESSMENT: Patient was interviewed and he says that he is feeling better. He still has some anxiety but it is lessened since admission. He had a moment of anxiety this morning but he stopped and took a deep breath and then he was feeling better. Today he denies suicidal ideation, no homicidal ideation, denies paranoia, denies AV hallucinations Vital Signs Vital Signs Date Time Temp Pulse Resp B/P (MAP) Pulse Ox O2 Delivery O2 Flow Rate FiO2 03/30/18 06:42 98.7 60 14 122/59 (80) Current Medications Current Medications Acetaminophen (Tylenol Tab) 650 mg Q6HP PRN PO HEADACHE or DISCOMFORT; Start 03/23/18 at 20:15 Al Hydrox/Mg Hydrox/Simethicone (Mylanta) 30 ml Q4HP PRN PO HEARTBURN/INDIGESTION; Start 03/23/18 at 20:15 Gabapentin (Neurontin) 100 mg TID PO Last administered on 03/30/18at 07:57; Start 03/24/18 at 16:00 Gabapentin (Neurontin) 200 mg TID PO ; Start 03/24/18 at 16:00; Stop 03/24/18 at 16:00; Status DC Home Med (Med Rec Complete!) ASDIRECTED XX ; Start 03/23/18 at 18:30; Stop 03/23/18 at 18:31; Status DC Magnesium Hydroxide (Milk Of Magnesia) 30 ml DAILYPRN PRN PO CONSTIPATION; Start 03/23/18 at 20:15 Mupirocin (Bactroban 2% Ointment) 1 dose BID PRN TOP REDNESS/IRRITATION Last administered on 03/25/18at 13:26; Start 03/24/18 at 10:15 Olanzapine (ZyPREXA ZYDIS) 5 mg Q4HP PRN PO ANXIETY/AGITATION; Start 03/23/18 at 22:30; Stop 03/24/18 at 15:08; Status DC Olanzapine (ZyPREXA ZYDIS) 5 mg Q6HP PRN PO ANXIETY/AGITATION Last administered on 03/27/18at 12:24; Start 03/24/18 at 15:15 Paliperidone (Invega) 3 mg BID PO Last administered on 03/30/18at 07:57; Start 03/29/18 at 21:00 Paliperidone (Invega) 3 mg BID PO Last administered on 03/29/18at 08:02; Start 03/25/18 at 21:00; Stop 03/29/18 at 10:39; Status DC Paliperidone (Invega) 3 mg QAM PO ; Start 2/12/19 at 09:00; Stop 03/30/18 at 09:00; Status DC Paliperidone (Invega) 6 mg QHS PO ; Start 03/29/18 at 21:00; Status Cancel Sertraline HCl (Zoloft) 50 mg QHS PO Last administered on 03/29/18at 20:07; Start 03/24/18 at 21:00 Trazodone HCl (Desyrel) 50 mg QHSP PRN PO INSOMNIA Last administered on 03/29/18at 20:08; Start 03/23/18 at 20:15 Allergies Coded Allergies: No Known Drug Allergy (Verified Allergy, Unknown, 03/23/18) GME ATTESTATION GME ATTESTATION My faculty preceptor for this patient encounter was physically present during the encounter and was fully available. All aspects of the patient interview, examination, medical decision making process, and medical care plan development were reviewed and approved by the faculty preceptor. The faculty preceptor is aware and concurs with the plan as stated in the body of this note and will attest to such by his/her cosignature. JOLLY TAI OMS-III Mar 30, 2018 14:41
[2018-03-30 18:00] VITALS: BP 128/70
[2018-03-30] MEDS: traZODone 50 MG TAB PO PRN (20:27)
[2018-03-30] MEDS: SERTRALINE HCL 50 MG TAB PO SCH (20:27)
[2018-03-31 06:47] VITALS: BP 116/64
[2018-03-31] MEDS: PALIPERIDONE 3 MG ER TAB (INVEGA) PO SCH ×2 (08:18→20:03)
[2018-03-31] MEDS: GABAPENTIN 100 MG CAP PO SCH ×3 (08:18→20:03)
--- NOTE | 2018-03-31 09:40 | MHIPNPDOC ---
[facility] Progress Note Progress Note DATE OF SERVICE: 03/31/18 HISTORY OF THE PRESENT ILLNESS: Patient is a 47 -year-old , male, who as per ED records: " pt states, "I'm so sick of my life and I have terrible depression." Pt reports struggling with on-going depression and anxiety. Admits feeling increasingly distressed over the past few weeks due to housing problems. States he is currently homeless and has been staying at the [facility] for the past few months. He apparently got evicted from his apt due to excessive police involvement. He reports frequently getting the police involved due to believing people are following him and "breaking into his apt leaving meth bottles." Pt s tates, "these people keep following me and I plan to kill them if I can find them." He continues to express SI(no plan) and HI with plan for gunshot. He is not currently in mental health treatment at this time. States he's been seeing [facility] for his substance abuse issues(Marijuana & Meth) and expressed his frustrations to counselor. Pt feels his depression is getting worse and states, "I feel like I'm going backwards instead moving forward." VITAL SIGNS: See below. NEW TEST RESULTS: Thyroid and neck u/s. Impression: Multiple tiny bilateral thyroid nodules. No suspicious abnormality. CURRENT MEDICATIONS: See below. MENTAL STATUS EXAM General Appearance: neat, hospital scubs/clothing Build: thin Demeanor: guarded, pleasant Eye Contact: average Activity: cooperative, engaged Behavior: cooperative Speech: clear, spontaneous, reg/rate,rhythm,volume Mood: average Affect: full, appropriate, congruent Thought Process: logical/linear Thought Content (Delusions): denies Thought Content (Other): preoccupied Thought Content (Aggressive): denies Perception (Hallucinations): none reported Perception (Other): none reported Cognition (Impairment of): none reported Cognition(Intelligence Est.): average Oriented: Awake, Alert, Oriented times three Insight: average Judgment: limited Psychosis: Denies ASSESSMENT: Patient was interviewed and he says that he is feeling good today. Depression and anxiety are doing much better then when he was admitted. He had a meeting with [facility] yesterday and he is feeling better today because of the way it went. We talked about how he wants to take better care of his medical health and his body when he is discharged. Today he denies suicidal ideation, no homicidal ideation, denies paranoia, denies AV hallucinations Vital Signs Vital Signs Date Time Temp Pulse Resp B/P (MAP) Pulse Ox O2 Delivery O2 Flow Rate FiO2 03/31/18 06:47 99.2 56 14 116/64 (81) Current Medications Current Medications Acetaminophen (Tylenol Tab) 650 mg Q6HP PRN PO HEADACHE or DISCOMFORT; Start 03/23/18 at 20:15 Al Hydrox/Mg Hydrox/Simethicone (Mylanta) 30 ml Q4HP PRN PO HEARTBURN/INDIGESTION; Start 03/23/18 at 20:15 Gabapentin (Neurontin) 100 mg TID PO Last administered on 03/31/18at 08:18; Start 03/24/18 at 16:00 Gabapentin (Neurontin) 200 mg TID PO ; Start 03/24/18 at 16:00; Stop 03/24/18 at 16:00; Status DC Home Med (Med Rec Complete!) ASDIRECTED XX ; Start 03/23/18 at 18:30; Stop 03/23/18 at 18:31; Status DC Magnesium Hydroxide (Milk Of Magnesia) 30 ml DAILYPRN PRN PO CONSTIPATION; Start 03/23/18 at 20:15 Mupirocin (Bactroban 2% Ointment) 1 dose BID PRN TOP REDNESS/IRRITATION Last administered on 03/25/18at 13:26; Start 03/24/18 at 10:15 Olanzapine (ZyPREXA ZYDIS) 5 mg Q4HP PRN PO ANXIETY/AGITATION; Start 03/23/18 at 22:30; Stop 03/24/18 at 15:08; Status DC Olanzapine (ZyPREXA ZYDIS) 5 mg Q6HP PRN PO ANXIETY/AGITATION Last administered on 03/27/18at 12:24; Start 03/24/18 at 15:15 Paliperidone (Invega) 3 mg BID PO Last administered on 03/31/18at 08:18; Start 03/29/18 at 21:00 Paliperidone (Invega) 3 mg BID PO Last administered on 03/29/18at 08:02; Start 03/25/18 at 21:00; Stop 03/29/18 at 10:39; Status DC Paliperidone (Invega) 3 mg QAM PO ; Start 03/30/18 at 09:00; Stop 03/30/18 at 09:00; Status DC Paliperidone (Invega) 6 mg QHS PO ; Start 03/29/18 at 21:00; Status Cancel Sertraline HCl (Zoloft) 50 mg QHS PO Last administered on 03/30/18at 20:27; Start 03/24/18 at 21:00 Trazodone HCl (Desyrel) 50 mg QHSP PRN PO INSOMNIA Last administered on 03/30/18at 20:27; Start 03/23/18 at 20:15 Allergies Coded Allergies: No Known Drug Allergy (Verified Allergy, Unknown, 03/23/18) GME ATTESTATION GME ATTESTATION My faculty preceptor for this patient encounter was physically present during the encounter and was fully available. All aspects of the patient interview, examination, medical decision making process, and medical care plan development were reviewed and approved by the faculty preceptor. The faculty preceptor is aware and concurs with the plan as stated in the body of this note and will attest to such by his/her cosignature. JOLLY TAI S-III Mar 31, 2018 09:40
[2018-03-31 18:00] VITALS: BP 123/57
[2018-03-31] MEDS: SERTRALINE HCL 50 MG TAB PO SCH (20:03)
[2018-03-31] MEDS: traZODone 50 MG TAB PO PRN (20:03)
[2018-04-01 06:41] VITALS: BP 123/58
[2018-04-01] MEDS: PALIPERIDONE 3 MG ER TAB (INVEGA) PO SCH (08:15)
[2018-04-01] MEDS: GABAPENTIN 100 MG CAP PO SCH (08:15)
--- NOTE | 2018-04-01 09:02 | MHIPNPDOC ---
[facility] Progress Note Progress Note DATE OF SERVICE: 04/01/18 HISTORY OF THE PRESENT ILLNESS: Patient is a 47 -year-old , male, who as per ED records: " pt states, "I'm so sick of my life and I have terrible depression." Pt reports struggling with on-going depression and anxiety. Admits feeling increasingly distressed over the past few weeks due to housing problems. States he is currently homeless and has been staying at the [facility] for the past few months. He apparently got evicted from his apt due to excessive police involvement. He reports frequently getting the police involved due to believing people are following him and "breaking into his apt leaving meth bottles." Pt s tates, "these people keep following me and I plan to kill them if I can find them." He continues to express SI(no plan) and HI with plan for gunshot. He is not currently in mental health treatment at this time. States he's been seeing [facility] for his substance abuse issues(Marijuana & Meth) and expressed his frustrations to counselor. Pt feels his depression is getting worse and states, "I feel like I'm going backwards instead moving forward." VITAL SIGNS: See below. NEW TEST RESULTS: Thyroid and neck u/s. Impression: Multiple tiny bilateral thyroid nodules. No suspicious abnormality. CURRENT MEDICATIONS: See below. MENTAL STATUS EXAM General Appearance: neat, hospital scubs/clothing Build: thin Demeanor: guarded, pleasant Eye Contact: average Activity: cooperative, engaged Behavior: cooperative Speech: clear, spontaneous, reg/rate,rhythm,volume Mood: average Affect: full, appropriate, congruent Thought Process: logical/linear Thought Content (Delusions): denies Thought Content (Other): none reported Thought Content (Aggressive): denies Perception (Hallucinations): none reported Perception (Other): none reported Cognition (Impairment of): none reported Cognition(Intelligence Est.): average Oriented: Awake, Alert, Oriented times three Insight: average Judgment: average Psychosis: Denies ASSESSMENT: Patient was interviewed and he says that he is feeling good today. He rates his depression as a 1/10 and says that it was around 7-8/10 when he first got here. He says he is happy and "that's a new feeling." He has been talking to his family on the phone yesterday and today and says they are all listening to what the others have to say and the conversations are going well. He expects more support and visits from them in the future. He normally attends all the group sessions and says that they help him, especially yoga. Rohith says he is doing really well, just waiting to hear from [facility]. Today he denies suicidal ideation, no homicidal ideation, denies paranoia, denies AV hallucinations Vital Signs Vital Signs Date Time Temp Pulse Resp B/P (MAP) Pulse Ox O2 Delivery O2 Flow Rate FiO2 04/01/18 06:41 98.2 54 16 123/58 (79) Current Medications Current Medications Acetaminophen (Tylenol Tab) 650 mg Q6HP PRN PO HEADACHE or DISCOMFORT; Start 03/23/18 at 20:15 Al Hydrox/Mg Hydrox/Simethicone (Mylanta) 30 ml Q4HP PRN PO HEARTBURN/INDIGESTION; Start 03/23/18 at 20:15 Gabapentin (Neurontin) 100 mg TID PO Last administered on 04/01/18at 08:15; Start 03/24/18 at 16:00 Gabapentin (Neurontin) 200 mg TID PO ; Start 03/24/18 at 16:00; Stop 03/24/18 at 16:00; Status DC Home Med (Med Rec Complete!) ASDIRECTED XX ; Start 03/23/18 at 18:30; Stop 03/23/18 at 18:31; Status DC Magnesium Hydroxide (Milk Of Magnesia) 30 ml DAILYPRN PRN PO CONSTIPATION; Start 03/23/18 at 20:15 Mupirocin (Bactroban 2% Ointment) 1 dose BID PRN TOP REDNESS/IRRITATION Last administered on 03/25/18at 13:26; Start 03/24/18 at 10:15 Olanzapine (ZyPREXA ZYDIS) 5 mg Q4HP PRN PO ANXIETY/AGITATION; Start 03/23/18 at 22:30; Stop 03/24/18 at 15:08; Status DC Olanzapine (ZyPREXA ZYDIS) 5 mg Q6HP PRN PO ANXIETY/AGITATION Last administered on 03/27/18at 12:24; Start 03/24/18 at 15:15 Paliperidone (Invega) 3 mg BID PO Last administered on 04/01/18 08:15; Start 03/29/18 at 21:00 Paliperidone (Invega) 3 mg BID PO Last administered on 03/29/18 08:02; Start 03/25/18 at 21:00; Stop 03/29/18 at 10:39; Status DC Paliperidone (Invega) 3 mg QAM PO ; Start 03/30/18 at 09:00; Stop 03/30/18 at 09:00; Status DC Paliperidone (Invega) 6 mg QHS PO ; Start 03/29/18 at 21:00; Status Cancel Sertraline HCl (Zoloft) 50 mg QHS PO Last administered on 03/31/18 20:03; Start 03/24/18 at 21:00 Trazodone HCl (Desyrel) 50 mg QHSP PRN PO INSOMNIA Last administered on 03/31/18 20:03; Start 03/23/18 at 20:15 Allergies Coded Allergies: No Known Drug Allergy (Verified Allergy, Unknown, 03/23/18) GME ATTESTATION GME ATTESTATION My faculty preceptor for this patient encounter was physically present during the encounter and was fully available. All aspects of the patient interview, examination, medical decision making process, and medical care plan development were reviewed and approved by the faculty preceptor. The faculty preceptor is aware and concurs with the plan as stated in the body of this note and will attest to such by his/her cosignature. JOLLY TAI OMS-III Apr 01, 2018 09:02
[2018-04-01] MEDS: OLANZapine ORAL DISINTEGRATING TAB 5MG PO PRN (09:27)
[2018-04-01] MEDS ORDERED: GABA-1171 PO (11:56)
[2018-04-01] MEDS ORDERED: MUPI2OI TOP (11:56)
[2018-04-01] MEDS ORDERED: TRAZO50TA PO (11:56)
[2018-04-01] MEDS ORDERED: PALI1TAB2 PO (11:56)
[2018-04-01] MEDS ORDERED: SERT50TA PO (11:56)
[2018-04-02] MEDS ORDERED: RISP1TAB42 PO (19:29)
--- NOTE | 2018-04-05 21:35 | MHDSPDOC ---
[facility] Discharge Summary Discharge Summary DATE OF ADMISSION: Mar 23, 2018 at 20:01 DATE OF DISCHARGE: Apr 01, 2018 at 14:15 DISCHARGE DIAGNOSES: 1. Major Depressive disorder with psychosis 2. amphetamine use disorder 3. Cannabis use disorder 4. R/O polysubstance induced psychosis REASON FOR ADMISSION: Patient is a 47 -year-old , male, who as per ED records: " pt states, "I'm so sick of my life and I have terrible depression." Pt reports struggling with on-going depression and anxiety. Admits feeling increasingly distressed over the past few weeks due to housing problems. States he is currently homeless and has been staying at the [facility] for the past few months. He apparently got evicted from his apt due to excessive police involvement. He reports frequently getting the police involved due to believing people are following him and "breaking into his apt leaving meth bottles." Pt states, "these people keep following me and I plan to kill them if I can find them." He continues to express SI(no plan) and HI with plan for gunshot. He is not currently in mental health treatment at this time. States he's been seeing [facility] for his substance abuse issues(Marijuana & Meth) and expressed his frustrations to counselor. Pt feels his depression is getting worse and states, "I feel like I'm going backwards instead moving forward." CONSULTANTS INVOLVED: None TREATMENT AND PROGRESS ON THE UNIT : Upon initial evaluation the patient presented as being psychotic, he was convinced there were people coming into his room and grabbing things from his place, including to methamphetamine bottles that were on his dinner table. According to staff members he could have been right because they report this type of events are not uncommon at the [facility] where he was living. Initially the patient was irritable and very anxious but he responded well to treatment in approximately 48 hours after he had initiated it, he was observed to be less guarded, less paranoid. He continued to improve during the rest of his hospitalization.. One of the major stressors for this man was the place where he was living because he felt completely unsafe in their and he said that he had complained to the media production support manager that the media production support manager was not doing anything to help him. He had requested to change the lock and it was not done. Been at the hospital, his planner/scheduler was able to connect him to [facility]. Upon discharge he was not suicidal, not homicidal and not psychotic. He was not in danger to self or others. [facility] Invega 3 mg by mouth twice a day, Zoloft 50 mg by mouth daily, gabapentin 100 mg by mouth 3 times a day, trazodone 50 mg by mouth daily at bedtime when necessary for insomnia. Because Invega was not approved by his insurance company, this press writer sent the prescription on 04/02/2018 to his pharmacy for Risperdal 1 mg by mouth twice a day instead of Invega. HOSPITAL COURSE: As above DISCHARGE ASSESSMENT: the patient was not suicidal, not homicidal and not psychotic. He was not paranoid, but he was still taking Invega. he knew that his Insurance might not approve this medicationa nd this press writer explained that in case it was not approved, I was going to send a script for Risperdal 1 mg PO BID. It was not approved and last 04/02/18, the e script for Risperdal was sent to the pharmacy. MENTAL STATUS EXAMINATION ON DISCHARGE: General Appearance: neat, hospital scubs/clothing Build: thin Demeanor: guarded, pleasant Eye Contact: average Activity: cooperative, engaged Behavior: cooperative Speech: clear, spontaneous, reg/rate,rhythm,volume Mood: average Affect: full, appropriate, congruent Thought Process: logical/linear Thought Content (Delusions): denies Thought Content (Other): none reported Thought Content (Aggressive): denies Perception (Hallucinations): none reported Perception (Other): none reported Cognition (Impairment of): none reported Cognition(Intelligence Est.): average Oriented: Awake, Alert, Oriented times three Insight: average Judgment: average Psychosis: Denies MEDICATIONS ON DISCHARGE: Scheduled Clonidine Hydrochloride (Clonidine HCl) 0.1 Mg Tab, 0.1 MG PO BID, (Reported) Gabapentin (Gabapentin) 100 Mg Cap, 100 MG PO TID for anxiety/pain, #21 Paliperidone (Paliperidone ER) 3 Mg Tab, 3 MG PO BID for psychosis, #14 Risperidone (Risperdal) 1 Mg Tab, 1 TAB PO BID for DELUSIONS for 7 Days, #14 Sertraline Hcl (Sertraline HCl) 50 Mg Tab, 50 MG PO QHS for depression, #7 Scheduled PRN Mupirocin (Mupirocin) 2 % Oin, 1 DOSE TOP BID PRN for REDNESS/IRRITATION, #1 Trazodone HCl (Trazodone HCl) 50 Mg Tab, 50 MG PO QHSP PRN for INSOMNIA, #7 PLAN/FOLLOWUP ARRANGEMENTS: Follow Up Care Education Label * Chemical Dependency Appt1 * Chemical Dependency [facility] * Established With This Provider Yes * Address of Clinic or Practice [address] [place] [address] * * Additional information Walk in hours from Thursday through Thursday from 8am-4pm Follow Up Care Education Label * Medical * Medical Follow Up [facility] * Established With This Provider No * Therapist DR. GALLEGOS * Date Apr 14, 2018 * Time 15:15 * Address of Clinic or Practice [address] [place] [address] * Follow Up Care Education Label * Mental Health Appt 1 * Chemical Dependency [facility] * Established With This Provider Yes * Therapist CLARE * Date Apr 06, 2018 * Time 10:00 * Phone Number P Follow Up Care Education Label * Case Management * Chemical Dependency [facility] * Established With This Provider Yes * Therapist OLGA LIDIA * Date Apr 12, 2018 * Time 11:00 * Phone Number P The amount of time spent in the coordination of care for this patient was approximately 30 minutes. Vital Signs/I&Os Vital Signs Date Time Temp Pulse Resp B/P (MAP) Pulse Ox O2 Delivery O2 Flow Rate FiO2 04/01/18 06:41 98.2 54 16 123/58 (79) Medications Scheduled Clonidine Hydrochloride (Clonidine HCl) 0.1 Mg Tab, 0.1 MG PO BID, (Reported) Gabapentin (Gabapentin) 100 Mg Cap, 100 MG PO TID for anxiety/pain, #21 Paliperidone (Paliperidone ER) 3 Mg Tab, 3 MG PO BID for psychosis, #14 Risperidone (Risperdal) 1 Mg Tab, 1 TAB PO BID for DELUSIONS for 7 Days, #14 Sertraline Hcl (Sertraline HCl) 50 Mg Tab, 50 MG PO QHS for depression, #7 Scheduled PRN Mupirocin (Mupirocin) 2 % Oin, 1 DOSE TOP BID PRN for REDNESS/IRRITATION, #1 Trazodone HCl (Trazodone HCl) 50 Mg Tab, 50 MG PO QHSP PRN for INSOMNIA, #7 Allergies Coded Allergies: No Known Drug Allergy (Verified Allergy, Unknown, 03/23/18) MERLE SALDAÑA MD Apr 05, 2018 21:35
== END 2018-04-01 14:15 | disposition home or self-care (01) | DRG 751 ==
LOC: M ED 15:56 → M ED INP 20:01 → M PSY 21:27
PROVIDERS: ADMIT Psychiatry & Neurology Psychiatry; ATTEND Psychiatry & Neurology Psychiatry
DX: F32.3 Major depressive disorder, single episode, severe with psychotic features (principal); F17.200 Nicotine dependence, unspecified, uncomplicated; F12.10 Cannabis abuse, uncomplicated; F15.10 Other stimulant abuse, uncomplicated; Z79.899 Other long term (current) drug therapy; Z59.0 Homelessness

== ENCOUNTER → 2018-07-01 | Outpatient (REF) | payer OTHER, MEDICAID ==
[~2018-07-01] MED LIST changes: +FLUT1SPR2; -FLUTISP; +GABA-1171 PO; +HYDR-3715 PO; +MUPI2OI TOP; -NORCOTAB PO; +PALI1TAB2 PO; +RISP1TAB42 PO; +SERT-141 PO; +TRAZO50TA PO
[2018-07-01 14:21] LABS: BASO # 0.1 10^3/uL (0.0-0.2); BASO % 0.9 % (0.0-1.0); EOS # 0.4 10^3/uL (0.0-0.50); EOS % 5.5 % (0.0-3.0); HEMOGLOBIN 14.7 g/dl (13.5-17.5); LYMPH # 1.6 10^3/uL (1.5-4.5); LYMPH % 24.8 % (24.0-44.0); MEAN CORPUSCULAR HEMOGLOBIN 29.6 pg (27.0-33.0); MEAN CORPUSCULAR HGB CONC 33.4 g/dl (32.0-36.5); MEAN CORPUSCULAR VOLUME 88.5 fl (80.0-96.0); MONO # 0.7 10^3/uL (0.0-0.8); MONO % 10.6 % (0.0-5.0); NEUTROPHILS # 3.7 10^3/uL (1.8-7.7); PLATELET COUNT, AUTOMATED 245 10^3/uL (150-450); RED BLOOD COUNT 4.97 10^6/uL (4.30-6.10); WHITE BLOOD COUNT 6.4 10^3/uL (4.0-10.0)
[2018-07-01 14:29] LABS: ALBUMIN 3.8 GM/DL (3.2-5.2); ALT/SGPT 182 U/L (12-78); BILIRUBIN,TOTAL 1.2 MG/DL (0.2-1.0); BLOOD UREA NITROGEN 17 MG/DL (7-18); CALCIUM LEVEL 9.1 MG/DL (8.5-10.1); CARBON DIOXIDE LEVEL 27 MEQ/L (21-32); CHLORIDE LEVEL 107 MEQ/L (98-107); CHOLESTEROL LEVEL 201 MG/DL (<200); CHOLESTEROL RISK RATIO 3.589 (<5); CREATININE FOR GFR 1.03 MG/DL (0.70-1.30); FREE T4 1.21 NG/DL (0.76-1.46); GLOMERULAR FILTRATION RATE > 60.0 (>60); GLUCOSE, FASTING 101 MG/DL (70-100); HDL CHOLESTEROL 56 MG/DL (>40); LDL CHOLESTEROL 130 MG/DL (<100); NON-HDL-C 145 MG/DL; POTASSIUM SERUM 4.1 MEQ/L (3.5-5.1); SODIUM LEVEL 141 MEQ/L (136-145); THYROID STIMULATING HORMONE 0.683 uIU/ML (0.358-3.740); TOTAL PROTEIN 7.2 GM/DL (6.4-8.2); TRIGLYCERIDES LEVEL 73 MG/DL (<150)
[2018-07-01 14:33] LABS: TOTAL 25(OH) VITAMIN D 20.7 NG/ML (30.0-100.0)
[2018-07-01 14:34] LABS: HEMOGLOBIN A1c 5.2 %
[2018-07-02 09:28] LABS: HEPATITIS B SURFACE ANTIBODY NEGATIVE (POSITIVE)
[2018-07-02 09:40] LABS: HEPATITIS B SURFACE ANTIGEN NEGATIVE (NEGATIVE)
[2018-07-02 10:08] LABS: HIV 1&2 SCREEN CENTAUR NEGATIVE (NEGATIVE)
[2018-07-02 10:17] LABS: HEPATITIS C VIRUS ABY INDEX > 11.0 INDEX (<0.8)
[2018-07-08 00:07] LABS: HEPATITIS A IgG TOTAL Negative (Negative); HEPATITIS B CORE ANTIBODY IGG Negative (Negative); HEPATITIS C QUANTITATION 3661240 IU/mL (.); HEPATITIS C VIRUS GENOTYPE 2b (.); HSV IgM TYPES 1&2 <0.91 Ratio (0.00-0.90); Lyme Disease IgG/IgM Antibodie <0.91 ISR (0.00-0.90); Lyme Disease IgM Ab Quantitati <0.80 index (0.00-0.79)
== END ==
LOC: M LAB REF 12:51
PROVIDERS: ATTEND Family Medicine
DX: Z11.3 Encounter for screening for infections with a predominantly sexual mode of transmission (principal); Z13.228 Encounter for screening for other metabolic disorders; B18.2 Chronic viral hepatitis C

== ENCOUNTER → 2018-09-16 | Outpatient (REF) | payer OTHER, MEDICAID ==
[~2018-09-16] MED LIST changes: +TRAZ1TAB10 PO; -TRAZO50TA PO
[2018-09-21 14:07] LABS: HEPATITIS C QUANTITATION <15 IU/mL (.)
== END ==
LOC: M LAB REF 16:38
PROVIDERS: ATTEND Nurse Practitioner Adult Health
DX: B18.2 Chronic viral hepatitis C (principal)

== ENCOUNTER → 2019-01-11 | Outpatient (CLI) | payer OTHER ==
[2019-01-13 00:06] LABS: Lyme Disease IgG/IgM Antibodie <0.91 ISR (0.00-0.90); Lyme Disease IgM Ab Quantitati <0.80 index (0.00-0.79)
== END ==
LOC: M LAB 10:52
PROVIDERS: ATTEND Family Medicine
DX: G51.0 Bell's palsy (principal)

== ENCOUNTER 2019-06-30 15:05 | Inpatient (IN) | payer MEDICAID, OTHER ==
[~2019-06-30] VITALS: Ht 180.3 cm; Wt 73.3 kg
[2019-06-30 15:55] LABS: HEMATOCRIT 41.6 % (42.0-52.0); HEMOGLOBIN 14.1 g/dl (13.5-17.5); MEAN CORPUSCULAR HEMOGLOBIN 29.1 pg (27.0-33.0); MEAN CORPUSCULAR HGB CONC 33.9 g/dl (32.0-36.5); PLATELET COUNT, AUTOMATED 212 10^3/uL (150-450); RED BLOOD COUNT 4.84 10^6/uL (4.30-6.10)
[2019-06-30 16:19] LABS: AMPHETAMINES LEVEL URINE POSITIVE (NEGATIVE); BARBITURATES URINE NEGATIVE (NEGATIVE); BENZODIAZEPINES URINE NEGATIVE (NEGATIVE); CANNABINOIDS URINE NEGATIVE (NEGATIVE); COCAINE METABOLITE URINE NEGATIVE (NEGATIVE); METHADONE URINE NEGATIVE (NEGATIVE); OPIATES URINE NEGATIVE (NEGATIVE); PHENCYCLIDINE URINE NEGATIVE (NEGATIVE)
[2019-06-30 16:31] LABS: ACETAMINOPHEN LEVEL < 2.0 UG/ML (10.0-30.0); ALBUMIN 3.6 GM/DL (3.2-5.2); ALT/SGPT 18 U/L (12-78); BILIRUBIN,DIRECT 0.3 MG/DL (0.0-0.2); BLOOD UREA NITROGEN 6 MG/DL (7-18); CALCIUM LEVEL 8.7 MG/DL (8.5-10.1); CARBON DIOXIDE LEVEL 26 MEQ/L (21-32); CHLORIDE LEVEL 107 MEQ/L (98-107); CREATININE FOR GFR 0.79 MG/DL (0.70-1.30); ETHYL ALCOHOL (ETHANOL) < 0.003 % (0.000-0.010); GLOMERULAR FILTRATION RATE > 60.0 (>60); GLUCOSE, FASTING 84 MG/DL (70-100); POTASSIUM SERUM 3.9 MEQ/L (3.5-5.1); SALICYLATE LEVEL 1.9 MG/DL (5.0-30.0); SODIUM LEVEL 140 MEQ/L (136-145); THYROID STIMULATING HORMONE 0.295 uIU/ML (0.358-3.740); TOTAL PROTEIN 6.8 GM/DL (6.4-8.2)
[2019-06-30] MEDS ORDERED: OMEP-221 PO (18:45)
[2019-06-30] MEDS ORDERED: RISP1TAB3 PO (18:45)
[2019-06-30] MEDS ORDERED: VITA-122 PO (18:45)
[2019-06-30] MEDS ORDERED: SERT50TA29 PO (18:45)
[2019-06-30] MEDS: risperiDONE 1 MG TAB PO SCH (21:00)
[2019-06-30] MEDS: SERTRALINE HCL 50 MG TAB PO SCH (21:00)
[2019-06-30] MEDS ORDERED: MOM 30ML SUSPENSION UDC PO PRN (21:45)
[2019-06-30] MEDS ORDERED: ACETAMINOPHEN TAB 650MG DOSE (2X325MG) PO PRN (21:45)
[2019-06-30] MEDS ORDERED: traZODone 50 MG TAB PO PRN (21:45)
[2019-06-30] MEDS ORDERED: MAALOX 30 ML SUSP *UDC PO PRN (21:45)
[2019-06-30 23:39] VITALS: BP 115/62
[2019-07-01 06:00] VITALS: BP 129/78
[2019-07-01] MEDS: risperiDONE 1 MG TAB PO SCH (09:00)
[2019-07-01] MEDS: VITAMIN D 1,000 INTERNATIONAL UNITS TABLET PO SCH (09:00)
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
[2019-07-01 15:59] VITALS: BP 108/57
--- NOTE | 2019-07-01 17:27 | HPEPDOC ---
General Date of Admission June 30, 2019 at 21:37 Date of Service: July 01, 2019 Chief Complaint The patient is a 48-year-old male admitted with a reason for visit of Unspecified Depression. History of Present Illness Patient is 48 years old male w past medical history significant for hepatitis C, polysubstance abuse and GERD, who was admitted in the hospital with depression and unspecified psychosis. U tox was positive for amphetamines. He denied any cardiovascular problem, breathing problem, GI problem or dysuria. He denies fever, chills, nausea, vomiting, shortness of breath, palpitations, diarrhea or dysuria Home Medications Scheduled Cholecalciferol (Vitamin D3) (Vitamin D3) 25 Mcg Tablet, 25 MCG PO DAILY, (Reported) Risperidone (Risperidone) 1 Mg Tablet, 1 MG PO BID, (Reported) STATES HE HAS NOT TAKEN IN 3 WEEKS Sertraline HCl (Sertraline HCl) 50 Mg Tablet, 50 MG PO QPM, (Reported) STATES HE HAS NOT TAKEN IN 3 WEEKS Scheduled PRN Omeprazole (Omeprazole) 40 Mg Capsule.dr, 40 MG PO QHS PRN for HEARTBURN, (Reported) Allergies Coded Allergies: No Known Allergies (Unverified , 06/30/19) Past Medical History Medical History Hepatitis C, patient stated it was cured Family History Both parents from heart attack Social History * Smoker: current smoker Alcohol: Denies Drugs: IV drug use (methamphetamine) A-FIB/CHADSVASC A-FIB History Current/History of A-Fib/PAF?: No Current PO Anticoag Therapy: No Review of Systems Constitutional: Denies: Chills, Fever Eyes: Denies: Pain ENT: Denies: Head Aches Skin: Denies: Rash, Lesions Pulmonary: Denies: Dyspnea, Cough Cardiovascular: Denies: Chest Pain Gastrointestinal: Denies: Nausea, Vomiting Genitourinary: Denies: Dysuria, Frequency Hematologic: Denies: Bruising Endocrine: Denies: Polydipsia Musculoskeletal: Denies: Neck Pain Neurological: Denies: Weakness, Numbness Psych: Reports: Depression Physical Examination General Exam: Positive: Alert, Cooperative Eye Exam: Positive: PERRLA ENT Exam: Positive: Atraumatic Chest Exam: Positive: Clear to auscultation Heart Exam: Positive: Rate Normal Telemetry: Positive: No significant arrhythmia Abdomen Exam: Positive: Normal bowel sounds Extremity Exam: Positive: Clubbing Skin Exam: Positive: Nl turgor and temperature Neuro Exam: Positive: Strength at 5/5 X4 ext, Cranial Nerves 3-12 NL Psych Exam: Positive: Anxiety, Oriented x 3 Vital Signs Vital Signs Date Time Temp Pulse Resp B/P (MAP) Pulse Ox O2 Delivery O2 Flow Rate FiO2 07/01/19 15:59 97.5 77 16 108/57 (74) 07/01/19 06:00 96 Room Air Assessment/Plan Patient is 48 years old male w past medical history significant for hepatitis C and GERD, who was admitted in the hospital with depression He denied any cardiovascular problem, breathing problem, GI problem or dysuria. He denies fever, chills, nausea, vomiting, shortness of breath, palpitations, diarrhea or dysuri Problems (1) Psychosis Status: Acute Problem Text: We will defer treatment of psychosis and depression to the psych team (2) GERD (gastroesophageal reflux disease) Status: Chronic Problem Text: Continue PPI Plan / VTE VTE Prophylaxis Ordered?: No VTE Exclusion Mechanical Proph: Low Risk for VTE MARK SANCHEZ DO July 01, 2019 17:27
[2019-07-01] MEDS: SERTRALINE HCL 50 MG TAB PO SCH (21:00)
[2019-07-01] MEDS: risperiDONE 2 MG TAB PO SCH (21:00)
[2019-07-02 07:02] VITALS: BP 95/54
[2019-07-02] MEDS: OMEPRAZOLE 20 MG CAP PO SCH (08:18)
[2019-07-02] MEDS: VITAMIN D 1,000 INTERNATIONAL UNITS TABLET PO SCH (08:18)
[2019-07-02 16:10] VITALS: BP 106/58
[2019-07-02] MEDS: risperiDONE 2 MG TAB PO SCH (21:00)
[2019-07-02] MEDS: SERTRALINE HCL 50 MG TAB PO SCH (21:00)
[2019-07-03 06:20] VITALS: BP 114/54
[2019-07-03] MEDS: VITAMIN D 1,000 INTERNATIONAL UNITS TABLET PO SCH (08:55)
[2019-07-03] MEDS: OMEPRAZOLE 20 MG CAP PO SCH (08:55)
--- NOTE | 2019-07-03 09:48 | MHIPN ---
DATE: 07/02/2019 The patient today tells me "I'm doing pretty good." He says he slept good, admits that he is still very angry at his neighbor and he did not want to discuss the events leading to admission, telling me that "I've already talked about it and it is in the chart." MENTAL STATUS EXAMINATION: The patient is alert and oriented times 3. Eye contact is fair. Psychomotor activity is normal. He responds with short sentences that appear to be appropriate, but he is very guarded. There is no formal thought disorder noted. He says his mood is good. Affect is appropriate to his mood. He is, I suspect, still quite paranoid. He is denying suicidal ideations and very angry at the neighbor still and I suspect its because he is still paranoid. He denies suicidal or homicidal ideations. Concentration is fair. Memory intact. Insight and judgment poor. DIAGNOSIS: 1. Unspecified psychotic disorder. 2. Methamphetamine use disorder, severe. 3. Cannabis use disorder, severe. 4. Rule out psychotic disorder due to substance use. TREATMENT PLAN: At this point, I believe that the patient is still very paranoid. He is denying having any homicidal thoughts at this point or suicidal thoughts, but I still think that he is angry and paranoid at the neighbor and still a significant risk. Will continue to monitor the patient and to adjust his medications as needed.
[2019-07-03 16:03] VITALS: BP 129/76
[2019-07-03] MEDS: risperiDONE 2 MG TAB PO SCH (20:29)
[2019-07-03] MEDS: SERTRALINE HCL 50 MG TAB PO SCH (20:29)
[2019-07-04 06:26] VITALS: BP 117/67
[2019-07-04] MEDS: OMEPRAZOLE 20 MG CAP PO SCH (09:42)
[2019-07-04] MEDS: VITAMIN D 1,000 INTERNATIONAL UNITS TABLET PO SCH (09:42)
--- NOTE | 2019-07-04 10:01 | MHIPNPDOC ---
[facility] Progress Note Progress Note Inpatient Progress Note Rohith Arellano MRN: N/A Date of : N/A Date of Service: 07/04/2019 History of Present Illness The patient a 48-year-old man with a history of severe drug use presents after using methamphetamine becoming quite psychotic and throwing a propane tank through a neighbor's window. He reportedly thought that the "electricity" was coming through and that he needed to throw this in an attack. He was still quite irritable and the interview was truncated as he became quite upset during most of the discussion being quite paranoid during it. Interval History The patient is met with today. He had a good weekend and is doing much better. He is pleasant and complimentary and has had no notable aggression over the weekend. He had refused taking the sertraline and risperidone as he reported made him quite sleepy, although he was open to alternative ideas. He wonders whether these medications ultimately help him feel better and do better. Review Of Systems No major physical complaints at this time. Psychotherapy None on this visit. Vital Signs Reviewed. Mental Status Examination General: Well dressed with good hygiene Speech: Spontaneous and fluid Thought processes: Linear and logical MSK: Smooth and coordinated gait, no signs of tremors or involuntary orofacial movements Thought content: Future orientated Abstract reasoning, and computation: Intact Description of associations: Intact Description of abnormal or psychotic thoughts: Denies any suicidal or homicidal ideation. Denies any auditory or visual hallucinations. Does not appear to be responding to internal stimuli. Does not appear to be endorsing any bizarre or paranoid ideation. Judgment: fair Insight: fair Orientation: Alert and orientated 3 Cognition: Grossly normal Recent and remote memory: Intact Attention span and concentration: Intact Fund of knowledge: Adequate Mood: "okay" Affect: Euthymic with a full range Diagnoses Unspecified psychotic disorder. Unspecified depressive disorder. Methamphetamine use disorder, severe. Cannabis use disorder, severe. Assessment and Plan Unspecified psychotic disorder: We'll try Abilify 2 mg nightly. Discussed the risks, benefits and potential side effects with patient as well as alternatives. Unspecified depressive disorder: Continue patient's sertraline. Methamphetamine/cannabis use disorder: Recommend continued outpatient treatment. Disposition Discharge tomorrow as patient no longer meets involuntary criteria and is doing better likely result of detoxification for methamphetamine. Time Spent 15 minutes Thursday Vital Signs Vital Signs Date Time Temp Pulse Resp B/P (MAP) Pulse Ox O2 Delivery O2 Flow Rate FiO2 07/04/19 06:26 96.8 67 12 117/67 (84) Room Air 07/02/19 07:02 97 Current Medications Current Medications Medications (Trade) Dose Ordered Sig/Gretchen Route PRN Reason Start Time Stop Time Status Last Admin Dose Admin Acetaminophen (Tylenol Tab) 650 mg Q6HP PRN PO HEADACHE or DISCOMFORT 06/30/19 21:45 Al Hydrox/Mg Hydrox/Simethicone (Mylanta) 30 ml Q4HP PRN PO HEARTBURN/INDIGESTION 06/30/19 21:45 Home Med (Med Rec Complete!) ASDIRECTED XX 06/30/19 19:00 06/30/19 18:50 DC Magnesium Hydroxide (Milk Of Magnesia) 30 ml DAILYPRN PRN PO CONSTIPATION 06/30/19 21:45 Omeprazole (PriLOSEC) 40 mg DAILY PO 07/02/19 09:00 07/04/19 09:42 Risperidone (RisperDAL) 1 mg BID PO 06/30/19 21:00 07/01/19 12:55 DC Risperidone (RisperDAL) 2 mg QHS PO 07/01/19 21:00 Sertraline HCl (Zoloft) 50 mg QPM PO 06/30/19 21:00 Trazodone HCl (Desyrel) 50 mg QHSP PRN PO INSOMNIA 06/30/19 21:45 Vitamin D (Vitamin D) 1,000 units DAILY PO 07/01/19 09:00 07/04/19 09:42 Allergies Coded Allergies: No Known Allergies (Unverified , 06/30/19) SEVERO FLORES DO July 04, 2019 10:01
[2019-07-04 12:23] LABS: THYROXINE (T4) 7.2 UG/DL (4.5-12.0)
[2019-07-04 15:35] VITALS: BP 100/58
[2019-07-04] MEDS ORDERED: ARIPiprazole 2 MG TAB PO SCH (21:00)
--- NOTE | 2019-07-04 22:26 | MHIPN ---
DATE: 07/03/2019 The patient today tells me, "I'm doing good." He tells me that he slept well. He has no complaints. He is still very guarded. When I asked him about whether he was still angry at the neighbor, his answer was "I'm pretty sure he won't do that again, if he does I will finish it this time." MENTAL STATUS EXAM: The patient is alert and oriented times three. Eye contact is fair. Psychomotor activity is normal. No formal thought disorder noted. He says his mood is good. Affect is constricted but appropriate to mood. He continues to be paranoid about the neighbor. He denies being suicidal. I think that he is still a homicidal risk being that he is still so paranoid about the neighbor. Insight and judgment is poor. DIAGNOSIS: Unspecified psychotic disorder. Unspecified depressive disorder. Methamphetamine use disorder, severe. Cannabis use disorder, severe. TREATMENT PLAN: At this point, we will continue to monitor the patient for any ongoing paranoid thoughts and to titrate his medications as indicated. As I said, I think he continues to be a possible homicidal risk, particularly against the neighbor that he remains paranoid about.
[2019-07-05 06:02] VITALS: BP 95/51
[2019-07-05] MEDS: OMEPRAZOLE 20 MG CAP PO SCH (08:34)
[2019-07-05] MEDS: VITAMIN D 1,000 INTERNATIONAL UNITS TABLET PO SCH (08:34)
--- NOTE | 2019-07-05 09:15 | MHDSPDOC ---
[facility] Discharge Summary Discharge Summary DATE OF ADMISSION: June 30, 2019 at 21:37 DATE OF DISCHARGE: 07/05/2019 Discharge Rohith Arellano MRN: N/A Date of : N/A Date of Service: 07/05/2019 Diagnoses Unspecified psychotic disorder. Unspecified depressive disorder. Methamphetamine use disorder, severe. Cannabis use disorder, severe. History of Present Illness The patient a 48-year-old man with a history of severe drug use presents after using methamphetamine becoming quite psychotic and throwing a propane tank through a neighbor's window. He reportedly thought that the "electricity" was coming through and that he needed to throw this in an attack. He was still quite irritable and the interview was truncated as he became quite upset during most of the discussion being quite paranoid during it. Consultants Involved Hospitalist/PCP screening Treatment and Progress On The Unit The patient was admitted to the inpatient mental health unit. He was still mildly intoxicated on his methamphetamine and was irritable and still delusional. He refused medications but resolved without much incident. He became much more amenable and friendly quite quickly after a weekend of observation. He did well without medications and was tried briefly on Abilify that was unhelpful for him. He, however, made a good resolution of his symptoms without much behavioral problem. He did not have any overt episodes of aggression and made good progress with just supportive treatment. Discharge Assessment 40-year-old man with a long history of methamphetamine use presents after coming intoxicated with methamphetamine. He is observed and treated supportively where he resolves without incident suggesting a substance-induced problem. The patient at the time of discharge did not meet criteria for involuntary admission/extension due to having a normal mental status exam, fair insight into the situation, They are engaged in the discharge process, as well as being friendly and amenable in behavioral control and havent been engaging in any observed concerning behavior or ideation recently. They decline voluntary extension/admission at this time and must be discharged in good aline, as Im unable to make a case for holding the patient against their will. They may have historical risk factors of admissions and other interactions with psychiatry however, those are not modifiable from a clinical perspective. The patient will need to be discharged in good aline. insert scripts Mental Status Examination General: Well dressed with good hygiene Speech: Spontaneous and fluid Thought processes: Linear and logical MSK: Smooth and coordinated gait, no signs of tremors or involuntary orofacial movements Thought content: Future orientated Abstract reasoning, and computation: Intact Description of associations: Intact Description of abnormal or psychotic thoughts: Denies any suicidal or homicidal ideation. Denies any auditory or visual hallucinations. Does not appear to be responding to internal stimuli. Does not appear to be endorsing any bizarre or paranoid ideation. Judgment: fair Insight: fair Orientation: Alert and orientated 3 Cognition: Grossly normal Recent and remote memory: Intact Attention span and concentration: Intact Fund of knowledge: Adequate Mood: "okay" Affect: Euthymic with a full range Follow Up The social work team worked during the predischarge meeting in order to evaluate for further issues of lethality address them fully before discharge. They worked on safety planning with the patient's family members in order to ensure that the patient will have a safe and effective discharge. Time Spent The amount of time spent in the coordination of care for this patient was approximately 45 minutes. Thursday Vital Signs/I&Os Vital Signs Date Time Temp Pulse Resp B/P (MAP) Pulse Ox O2 Delivery O2 Flow Rate FiO2 07/05/19 06:02 98.9 73 16 95/51 (66) 99 Room Air Laboratory Data Labs 24H Laboratory Tests 2 07/04/19 11:06: Free Thyroxine 1.00, Thyroxine (T4) 7.2 Medications Scheduled Cholecalciferol (Vitamin D3) (Vitamin D3) 25 Mcg Tablet, 25 MCG PO DAILY, (Reported) Allergies Coded Allergies: No Known Allergies (Unverified , 06/30/19) SEVERO FLORES DO July 05, 2019 09:15
== END 2019-07-05 12:50 | disposition home or self-care (01) | DRG 754 ==
LOC: M ED 15:05 → M ED INP 21:37 → M PSY 23:19
PROVIDERS: ADMIT Psychiatry & Neurology Addiction Medicine; ATTEND Psychiatry & Neurology Addiction Medicine
DX: F32.9 Major depressive disorder, single episode, unspecified (principal); F12.90 Cannabis use, unspecified, uncomplicated; F15.90 Other stimulant use, unspecified, uncomplicated; Z79.899 Other long term (current) drug therapy; K21.9 Gastro-esophageal reflux disease without esophagitis

== ENCOUNTER 2019-07-20 15:34 | Inpatient (IN) | payer MEDICAID, OTHER ==
[~2019-07-20] VITALS: Ht 180.3 cm; Wt 76.3 kg
[~2019-07-20 15:34] MED LIST changes: +OMEP-221 PO; +RISP1TAB3 PO; +SERT50TA29 PO; +VITA-122 PO
[2019-07-20 17:04] LABS: HEMATOCRIT 41.8 % (42.0-52.0); MEAN CORPUSCULAR HGB CONC 33.5 g/dl (32.0-36.5); MEAN CORPUSCULAR VOLUME 86.5 fl (80.0-96.0); PLATELET COUNT, AUTOMATED 266 10^3/uL (150-450); RED BLOOD COUNT 4.83 10^6/uL (4.30-6.10)
[2019-07-20 17:29] LABS: AMPHETAMINES LEVEL URINE POSITIVE (NEGATIVE); BARBITURATES URINE NEGATIVE (NEGATIVE); BENZODIAZEPINES URINE NEGATIVE (NEGATIVE); CANNABINOIDS URINE POSITIVE (NEGATIVE); COCAINE METABOLITE URINE NEGATIVE (NEGATIVE); METHADONE URINE NEGATIVE (NEGATIVE); OPIATES URINE NEGATIVE (NEGATIVE); PHENCYCLIDINE URINE NEGATIVE (NEGATIVE)
[2019-07-20 17:37] LABS: ACETAMINOPHEN LEVEL < 2.0 UG/ML (10.0-30.0); ALBUMIN 3.4 GM/DL (3.2-5.2); ALT/SGPT 25 U/L (12-78); BILIRUBIN,DIRECT 0.2 MG/DL (0.0-0.2); BILIRUBIN,TOTAL 0.8 MG/DL (0.2-1.0); BLOOD UREA NITROGEN 15 MG/DL (7-18); CALCIUM LEVEL 8.7 MG/DL (8.5-10.1); CARBON DIOXIDE LEVEL 27 MEQ/L (21-32); CHLORIDE LEVEL 108 MEQ/L (98-107); CREATININE FOR GFR 0.78 MG/DL (0.70-1.30); ETHYL ALCOHOL (ETHANOL) < 0.003 % (0.000-0.010); GLOMERULAR FILTRATION RATE > 60.0 (>60); GLUCOSE, FASTING 92 MG/DL (70-100); POTASSIUM SERUM 4.3 MEQ/L (3.5-5.1); SALICYLATE LEVEL < 1.7 MG/DL (5.0-30.0); SODIUM LEVEL 142 MEQ/L (136-145); TOTAL PROTEIN 6.9 GM/DL (6.4-8.2)
[2019-07-20] MEDS ORDERED: MOM 30ML SUSPENSION UDC PO PRN (19:00)
[2019-07-20] MEDS ORDERED: traZODone 50 MG TAB PO PRN (19:00)
[2019-07-20] MEDS ORDERED: ACETAMINOPHEN TAB 650MG DOSE (2X325MG) PO PRN (19:00)
[2019-07-20] MEDS ORDERED: LORazepam 2 MG/ML VIAL IM ONE (19:30)
[2019-07-20] MEDS ORDERED: diphenhydrAMINE 50MG/ML VIAL (J1200) IM ONE (19:30)
[2019-07-20] MEDS ORDERED: HALOPERIDOL 5MG/ML VIAL (J1630 PER 1) IM ONE (19:30)
[2019-07-20] MEDS: ARIPiprazole 2 MG TAB PO SCH (21:00)
[2019-07-20 21:48] VITALS: BP 123/67
[2019-07-21 06:39] VITALS: BP 91/51
[2019-07-21] MEDS: NICOTINE 21MG/24HR 1 EA TRANSDERMAL TD SCH (09:00)
--- NOTE | 2019-07-21 09:31 | MHHPEPDOC ---
General Date Of Admission: Jul 20, 2019 Legal Status: 9.39 Chief Complaint patient refused interview History of Present Illness HISTORY OF THE PRESENT ILLNESS: Patient is a 48 -year-old , male, who presented to [facility] after using methamphetamine becoming psychotic and distorted. He was quite aggressive and was unable to participate in any meaningful interview. He refused to meet with this provider today and peers quite paranoid and isolative per nursing staff. This is a common presentation and his urinary talk screen is positive in for amphetamines and cannabinoids. Recently he has been removed from his supportive housing as he is violated their terms. MSE patient refuses interview Psychiatric Review of Systems Psychosis: paranoia, disorganization Past Psychiatric History Previous Psychiatric Diagnosis: substance induced psychosis. Previous Psychiatric Admissions: several weeks ago. Suicide Attempts: none noted. Psychiatric Follow-up: unclear. Psychiatric medications: unclear. Past Medical History Medical Problems no notable change Family Medical/Psychiatric HX Medical Problems unclear Addiction History nicotine, amphetamines Social History Childhood: unknown. Abuse/Trauma: unknown. Current Living Situation: lives alone, unclear since being kicked out. Education: highschool or below. Employment: unemployed. Social Support: few. Legal: legal problems for throwing objects through window. Marital: single. Assessment 48-year-old man with a history of substance induced psychosis presents after using methamphetamine and becoming psychotic. He usually recovers quite quickly once the effects of worn off. Problem List Problems: (1) Psychosis Status: Acute Response to Treatment: Uncontrolled Problem Text: supportive treatment (2) Polysubstance abuse Status: Acute Response to Treatment: Uncontrolled Problem Text: referral to addictions (3) Housing problems Discussed With: Pt and Family Services Problem Text: referral to TLS made Initial Treatment Plan 1. Patient was admitted on a [9.39] status. 2. Complete history was obtained. 3. With patients permission, family will be contacted and database will be expanded. 4. Patients medication regimen will be reviewed and changed accordingly. 5. Patient will be provided with protected environment. 6. Patient will be treated with individual, group, and milieu therapies. 7. Patient will receive supportive psych-education. 8. Discharge planning will commence immediately. 9. Outpatient follow-up treatment will be strongly recommended. 10. The initial treatment plan will focus initially on: * altered thoughts * substance use ESTIMATED LENGTH OF STAY: 1-2 DAYS. TIME SPENT COUNSELING AND COORDINATING INITIAL CARE: 30 minutes. Vital Signs Vital Signs Date Time Temp Pulse Resp B/P (MAP) Pulse Ox O2 Delivery O2 Flow Rate FiO2 07/21/19 06:39 98.7 66 18 91/51 (64) 98 Room Air Laboratory Data 24H Labs Laboratory Tests 2 07/20/19 16:25: Nucleated Red Blood Cells % (auto) 0.0, Anion Gap 7L, Glomerular Filtration Rate > 60.0, Calcium Level 8.7, Total Bilirubin 0.8, Direct Bilirubin 0.2, Aspartate Amino Transf (AST/SGOT) 19, Alanine Aminotransferase (ALT/SGPT) 25, Alkaline Phosphatase 67, Total Protein 6.9, Albumin 3.4, Albumin/Globulin Ratio 1.0, Thyroid Stimulating Hormone (TSH) 0.410, Salicylates Level < 1.7L, Urine Opiates Screen NEGATIVE, Urine Methadone Screen NEGATIVE, Acetaminophen Level < 2.0L, Urine Barbiturates Screen NEGATIVE, Urine Phencyclidine Screen NEGATIVE, Urine Amphetamines Screen POSITIVEH, Urine Benzodiazepines Screen NEGATIVE, Urine Cocaine Metabolite Screen NEGATIVE, Urine Cannabinoids Screen POSITIVEH, Ethyl Alcohol Level < 0.003 CBC/BMP Laboratory Tests 07/20/19 16:25 Medications Scheduled Cholecalciferol (Vitamin D3) (Vitamin D3) 25 Mcg Tablet, 25 MCG PO DAILY, (Reported) Allergies Coded Allergies: No Known Allergies (Unverified , 06/30/19) SEVERO FLORES 4, 2020 09:31
[2019-07-21] MEDS ORDERED: OLANZapine ORAL DISINTEGRATING TAB 5MG PO PRN (17:00)
--- NOTE | 2019-07-21 17:10 | HPEPDOC ---
[facility] Medical History & Physical Date of Admission Jul 20, 2019 Date of Service: Jul 21, 2019 History and Physical CHIEF COMPLAINT: Admitted to [facility] for psychosis HISTORY OF PRESENT ILLNESS: 48 y.o male w/ PMH of Anxiety/depression is admitted to [facility] for psychotic episode secondary to drug abuse. He is providing a different history, reports he his here because he became dislocated from his living arrangements. He denies any psychiatric or medical history, denies taking any prescribed medication. He has no complaints at this time, admits to taking "speed" occasionally, last use was 2 days ago. He denies any SOB, CP, N/V/D or abdominal pain. 10 point review of system is negative except for above. PAST MEDICAL HISTORY: 1. Anxiety 2. Depression PAST SURGICAL HISTORY: 1. Appendectomy SOCIAL HISTORY: Smokes 1 PPD occasional alcohol use uses "speed" occasionally FAMILY HISTORY: Positive for heart disease ALLERGIES: Please see below. HOME MEDICATIONS: Please see below. PHYSICAL EXAMINATION: VITAL SIGNS: See below GENERAL APPEARANCE: No distress HEENT: Moist mucus membranes CARDIOVASCULAR: S1, S2, no murmurs LUNGS: clear to auscultation ABDOMEN: Soft, non-tender, non-distended, +BS EXTREMITIES: ROM intact NEUROLOGICAL: No focal deficits PSYCHIATRIC: calm LABORATORY DATA: See below. MICROBIOLOGY: Please see below. ASSESSMENT: 48 y.o admitted to [facility] for psychotic episode secondary to drug use. PLAN: 1. Drug induced psychosis - management as per primary team Patient denies any medical history or complaints at this time, chart reviewed, no medical intervention needed at this time, please reconsult as needed. Vital Signs Vital Signs Date Time Temp Pulse Resp B/P (MAP) Pulse Ox O2 Delivery O2 Flow Rate FiO2 07/21/19 06:39 98.7 66 18 91/51 (64) 98 Room Air Home Medications Scheduled Cholecalciferol (Vitamin D3) (Vitamin D3) 25 Mcg Tablet, 25 MCG PO DAILY Allergies Coded Allergies: No Known Allergies (Unverified , 06/30/19) A-FIB/CHADSVASC A-FIB History Current/History of A-Fib/PAF?: No TAWNY BLUNT MD Jul 21, 2019 17:10
[2019-07-21] MEDS: ARIPiprazole 2 MG TAB PO SCH (21:00)
[2019-07-22 06:15] VITALS: BP 91/50
[2019-07-22] MEDS: NICOTINE 21MG/24HR 1 EA TRANSDERMAL TD SCH (09:00)
--- NOTE | 2019-07-22 10:03 | MHIPNPDOC ---
[facility] Progress Note Progress Note DOS 07/22/2019 Events Overnight: isolative to room Group Attendance:: none Symptom changes (psych ROS): Affective: unknown patient refuses interview Psychotic: as above Anxiety: as above Staff Report: report. The patient is superficially cooperative, appears to be making some progress as he is substance induced psychosis, but is likely expressing withdrawal and is uninterested engaging Medical ROS: Patient refuses interview MSE: Vitals: Below Patient refuses interview Vital Signs Vital Signs Date Time Temp Pulse Resp B/P (MAP) Pulse Ox O2 Delivery O2 Flow Rate FiO2 07/22/19 06:15 98.7 94 18 91/50 (64) 07/21/19 06:39 98 Room Air Current Medications Current Medications Medications (Trade) Dose Ordered Sig/Gretchen Route PRN Reason Start Time Stop Time Status Last Admin Dose Admin Acetaminophen (Tylenol Tab) 650 mg Q6HP PRN PO HEADACHE or DISCOMFORT 07/20/19 19:00 Al Hydrox/Mg Hydrox/Simethicone (Mylanta) 30 ml Q4HP PRN PO HEARTBURN/INDIGESTION 07/20/19 19:00 Aripiprazole (AbiLIFY) 2 mg QHS PO 07/20/19 21:00 Home Med (Med Rec Complete!) ASDIRECTED XX 07/20/19 18:30 07/20/19 18:27 DC Magnesium Hydroxide (Milk Of Magnesia) 30 ml DAILYPRN PRN PO CONSTIPATION 07/20/19 19:00 Nicotine (Nicoderm Cq 21mg) 1 patch DAILY TD 07/21/19 09:00 Olanzapine (ZyPREXA ZYDIS) 10 mg Q4HP PRN PO ANXIETY/AGITATION 07/21/19 17:00 Trazodone HCl (Desyrel) 50 mg QHSP PRN PO INSOMNIA 07/20/19 19:00 Allergies Coded Allergies: No Known Allergies (Unverified , 06/30/19) Problems (1) Psychosis Status: Acute Response to Treatment: Improving Problem Text: continue to offer Abilify (2) Polysubstance abuse Status: Acute Response to Treatment: Improving (3) Housing problems Discussed With: Pt and Family Services Plan / VTE VTE Prophylaxis Ordered?: No Plan Diet: Continue Current Activity: Continue Current Anticipated Discharge: Other Anticipated D/C (hopeful discharge in the next couple days, Once he resolves) LULEJIAN,SEVERO DO Jul 22, 2019 10:03
[2019-07-22 17:57] VITALS: BP 111/57
[2019-07-22] MEDS: MAALOX 30 ML SUSP *UDC PO PRN (20:16)
[2019-07-22] MEDS: ARIPiprazole 2 MG TAB PO SCH (21:00)
[2019-07-23 06:19] VITALS: BP 94/51
[2019-07-23] MEDS: NICOTINE 21MG/24HR 1 EA TRANSDERMAL TD SCH (09:00)
--- NOTE | 2019-07-23 10:21 | MHIPNPDOC ---
[facility] Progress Note Progress Note DOS 07/23/2019 Patient met with today with nurse present for telehealth evaluation due to COVID Crisis Events Overnight:[none] Group Attendance:: none Symptom changes (psych ROS): Affective: denies Psychotic: denies, appears to be more organized Anxiety: denies Staff Report: more amenable and more friendly, is open to meeting with this provider. Finally., Didn't take the Abilify the previous evening. Stating that he "doesn't need medication" Medical ROS: [Gen: -fevers, chills] [Cardio: -chest pain, palpations] [[place]: -SOB, cough] [GI: -N,V,D,C] [Neuro: -tremors, msk stiffness] [Derm: -rash] MSE: Vitals: Below [General: Well dressed with good hygiene Speech: Spontaneous and fluid Thought processes: improved Thought content: Future orientated Abstract reasoning, and computation: Intact Description of associations: improving Description of abnormal or psychotic thoughts:Denies any suicidal or homicidal ideation. Denies any auditory or visual hallucinations. Does not appear to be responding to internal stimuli. Does not appear to be endorsing any bizarre or paranoid ideation. Judgment: improving Insight: improving Orientation: Alert and orientated 3 Recent and remote memory: Intact Attention span and concentration: Intact Fund of knowledge: Adequate Mood: "okay" Affect: Euthymic with a full range] Vital Signs Vital Signs Date Time Temp Pulse Resp B/P (MAP) Pulse Ox O2 Delivery O2 Flow Rate FiO2 07/23/19 06:19 97.6 57 14 94/51 (65) 99 Room Air Current Medications Current Medications Medications (Trade) Dose Ordered Sig/Gretchen Route PRN Reason Start Time Stop Time Status Last Admin Dose Admin Acetaminophen (Tylenol Tab) 650 mg Q6HP PRN PO HEADACHE or DISCOMFORT 07/20/19 19:00 Al Hydrox/Mg Hydrox/Simethicone (Mylanta) 30 ml Q4HP PRN PO HEARTBURN/INDIGESTION 07/20/19 19:00 07/22/19 20:16 Aripiprazole (AbiLIFY) 2 mg QHS PO 07/20/19 21:00 Home Med (Med Rec Complete!) ASDIRECTED XX 07/20/19 18:30 07/20/19 18:27 DC Magnesium Hydroxide (Milk Of Magnesia) 30 ml DAILYPRN PRN PO CONSTIPATION 07/20/19 19:00 Nicotine (Nicoderm Cq 21mg) 1 patch DAILY TD 07/21/19 09:00 Olanzapine (ZyPREXA ZYDIS) 10 mg Q4HP PRN PO ANXIETY/AGITATION 07/21/19 17:00 Trazodone HCl (Desyrel) 50 mg QHSP PRN PO INSOMNIA 07/20/19 19:00 Allergies Coded Allergies: No Known Allergies (Unverified , 06/30/19) Problems (1) Psychosis Status: Acute Response to Treatment: Improving Problem Text: Will change Abilify to 5 mg nightly patient open to taking at this time (2) Polysubstance abuse Status: Acute Response to Treatment: Improving Problem Text: referral to rehab (3) Housing problems Discussed With: Pt and Family Services Problem Text: TLS paperwork previously filled out Plan / VTE VTE Prophylaxis Ordered?: No Plan Diet: Continue Current Activity: Continue Current Anticipated Discharge: Home, Other Anticipated D/C (discharge potentially Thursday if continues to improve) SEVERO FLORES DO Jul 23, 2019 10:20
[2019-07-23] MEDS ORDERED: PANTOPRAZOLE 20 MG TAB PO ONE (13:00)
[2019-07-23 16:00] VITALS: BP 118/56
[2019-07-24 06:12] VITALS: BP 116/55
[2019-07-24] MEDS: PANTOPRAZOLE 20 MG TAB PO SCH (09:28)
--- NOTE | 2019-07-24 11:14 | MHIPNPDOC ---
[facility] Progress Note Progress Note DOS: 07/24/2019 Patient met with today with nurse present for telehealth evaluation due to COVID Crisis Events Overnight:[none] Group Attendance:: infrequent Symptom changes (psych ROS): Affective: denies Psychotic: report some overvalued paranoia, but no HI Anxiety: denies Staff Report: staff does report some paranoid thoughts, but it appears the patient quite glib when discussing it and appears to use it to get a a response, he had instructed the nurse that he didn't want her to mention it to this provider, completely unprompted during discussion. He brought it up again, interestingly, but reported no intentions of harming one but felt that he might be "electrocuted" at home. He appeared quite glib and laughed quite a bit about it, appearing to have little conviction about this belief. Medical ROS: [Gen: -fevers, chills] [Cardio: -chest pain, palpations] [Norman: -SOB, cough] [GI: -N,V,D,C] [Neuro: -tremors, msk stiffness] [Derm: -rash] MSE: Vitals: Below [General: Well dressed with good hygiene Speech: Spontaneous and fluid Thought processes: Linear and logical Thought content: Future orientated, thoughts as above Abstract reasoning, and computation: Intact Description of associations: Intact Description of abnormal or psychotic thoughts:Denies any suicidal or homicidal ideation. Denies any auditory or visual hallucinations. Does not appear to be responding to internal stimuli. Does not appear to be endorsing any bizarre or paranoid ideation. Judgment: chronically limited Insight: chronically limited Orientation: Alert and orientated 3 Recent and remote memory: Intact Attention span and concentration: Intact Fund of knowledge: Adequate Mood: "okay" Affect: Euthymic with a full range] Vital Signs Vital Signs Date Time Temp Pulse Resp B/P (MAP) Pulse Ox O2 Delivery O2 Flow Rate FiO2 07/24/19 06:12 97.8 89 20 116/55 (75) 98 Room Air Current Medications Current Medications Medications (Trade) Dose Ordered Sig/Gretchen Route PRN Reason Start Time Stop Time Status Last Admin Dose Admin Acetaminophen (Tylenol Tab) 650 mg Q6HP PRN PO HEADACHE or DISCOMFORT 07/20/19 19:00 Al Hydrox/Mg Hydrox/Simethicone (Mylanta) 30 ml Q4HP PRN PO HEARTBURN/INDIGESTION 07/20/19 19:00 07/22/19 20:16 Aripiprazole (AbiLIFY) 2 mg QHS PO 07/20/19 21:00 07/23/19 11:28 DC Aripiprazole (AbiLIFY) 5 mg QHS PO 07/23/19 21:00 07/23/19 20:13 Home Med (Med Rec Complete!) ASDIRECTED XX 07/20/19 18:30 07/20/19 18:27 DC Magnesium Hydroxide (Milk Of Magnesia) 30 ml DAILYPRN PRN PO CONSTIPATION 07/20/19 19:00 Nicotine (Nicoderm Cq 21mg) 1 patch DAILY TD 07/21/19 09:00 07/23/19 11:30 DC Olanzapine (ZyPREXA ZYDIS) 10 mg Q4HP PRN PO ANXIETY/AGITATION 07/21/19 17:00 Pantoprazole Sodium (Protonix) 20 mg DAILY PO 07/24/19 09:00 07/24/19 09:28 Trazodone HCl (Desyrel) 50 mg QHSP PRN PO INSOMNIA 07/20/19 19:00 Allergies Coded Allergies: No Known Allergies (Unverified , 06/30/19) Problems (1) Substance or medication-induced psychotic disorder Status: Resolved Problem Text: Continue Abilify 5 mg nightly (2) Polysubstance abuse Status: Acute Response to Treatment: Improving Problem Text: referral to rehab (3) Housing problems Discussed With: Pt and Family Services Problem Text: TLS paperwork previously filled out (4) Paranoid disorder, atypical Status: Chronic Problem Text: Patient reports some overvalued ideas, he states that he has no intentions of harming anyone but is curious as to whether someone had been in his apartment. He appears quite glib and laughs quite a bit, appearing to very little sincerity in such beliefs. Concerned that he is likely malingering as his housing is currently in jeopardy, due to his continued methamphetamine use. He could be potentially trying to stay longer by reporting said thoughts Plan / VTE VTE Prophylaxis Ordered?: No Plan Diet: Continue Current Activity: Continue Current Anticipated Discharge: Home, Other Anticipated D/C (discharge potentially Thursday if continues to improve) SEVERO FLORES DO Jul 24, 2019 11:14
[2019-07-24 15:51] VITALS: BP 121/58
[2019-07-24] MEDS: MAALOX 30 ML SUSP *UDC PO PRN (21:57)
[2019-07-25 06:00] VITALS: BP 109/66
[2019-07-25] MEDS: PANTOPRAZOLE 20 MG TAB PO SCH (08:10)
--- NOTE | 2019-07-25 10:03 | MHDSPDOC ---
[facility] Discharge Summary Discharge Summary DATE OF ADMISSION: Jul 20, 2019 at 18:56 DATE OF DISCHARGE: Jul 25, 2019 at 13:53 DISCHARGE DIAGNOSES: See Problem list below REASON FOR ADMISSION: 48-year-old man is admitted after using methamphetamine becoming bizarre and paranoid, in a near duplicate admission from his previous CONSULTANTS INVOLVED:[ None (basic hospitalist screening)] TREATMENT AND PROGRESS ON THE UNIT : Medication changes: start on Abilify 2 mg nightly increase to 5 mg the positive effects Behavior on unit: generally isolative, was unengaged as he was on isolation, he improved well and then began meeting with this provider. He continued endorsed some low level paranoid thoughts at times, however, they appeared to be in the context of being glib and laughter with little or no sincerity. He clarified statement he made the day prior to discharge about feeling that people were "electrocuting him", he reported that he believed that his neighbors might be doing that but that he wished them no harm and had contacted police to investigate the situation. The patient reported he has no access to weapons and has no interest in harming any individuals. 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 He had no behavior or other ideation, other than the aforementioned that he had explained at length that would suggest that he was at imminent risk of danger towards himself or others. He was observed for 24 hours after said statement above, where he had continue to deny any thoughts and had consistently been in behavioral control. Legal status considerations: The patient at the time of discharge did not meet criteria for involuntary admission/extension due to having a baseline mental status exam, improved insight into the situation, They are engaged in the discharge process, as well as being friendly and amenable in behavioral control and havent been engaging in any observed concerning behavior or ideation recently. They decline voluntary extension/admission at this time and must be discharged in good aline, as Im unable to make a case for holding the patient against their will. They may have historical risk factors of admissions and other interactions with psychiatry however, those are not modifiable from a clinical perspective. The patient will need to be discharged in good aline. MENTAL STATUS EXAMINATION ON DISCHARGE: [General: Well dressed with good hygiene Speech: Spontaneous and fluid Thought processes: Linear and logical Thought content: Future orientated Abstract reasoning, and computation: Intact Description of associations: Intact Description of abnormal or psychotic thoughts:Denies any suicidal or homicidal ideation. Denies any auditory or visual hallucinations. Endorses reported thought mentioned about "people electrocuting him", but appears glib and insincere describing it. Denies any thoughts of wanting to hurt anyone related to said thought. Judgment: improved Insight: improved Orientation: Alert and orientated 3 Recent and remote memory: Intact Attention span and concentration: Intact Fund of knowledge: Adequate Mood: "okay" Affect: Euthymic with a full range] PLAN/FOLLOWUP ARRANGEMENTS: Follow up appointments made (PCP and MH in 5 days of D/C date) and safety plan completed. Safety Planning aspects completed prior to discharge [SAFE ACT reported on initial invol admission in ER] [Medication supplies limited to 7 days with 4 refills to prevent accumulation to OD] [TLS contact completed, educated on safe practices, instructed on removal and mitigation of dangerous means] [RN reviewed crisis hotline information and other aspects to empower patient to access care in interim before next appointment.] The amount of time spent in the coordination of care for this patient was approximately 30 minutes. Vital Signs/I&Os Vital Signs Date Time Temp Pulse Resp B/P (MAP) Pulse Ox O2 Delivery O2 Flow Rate FiO2 07/25/19 06:00 97.2 71 12 109/66 (80) 07/24/19 06:12 98 Room Air Medications Scheduled Aripiprazole (Abilify) 5 Mg Tablet, 5 MG PO QHS for mood for 7 Days, #7 Pantoprazole Sodium (Pantoprazole Sodium) 20 Mg Tablet.dr, 20 MG PO DAILY for GERD for 7 Days, #7 Allergies Coded Allergies: No Known Allergies (Unverified , 06/30/19) Problems (1) Substance or medication-induced psychotic disorder Status: Resolved Problem Text: Continue Abilify 5 mg nightly (2) Polysubstance abuse Status: Chronic Problem Text: referral to rehab (3) Housing problems Status: Chronic Problem Text: TLS paperwork previously filled out (4) Paranoid disorder, atypical Status: Chronic Response to Treatment: Stable Plan / VTE VTE Prophylaxis Ordered?: No SEVERO FLORES DO Jul 25, 2019 10:03
[2019-07-25] MEDS ORDERED: ABIL1TAB11 PO (10:25)
[2019-07-25] MEDS ORDERED: PANT20TA2 PO (13:25)
== END 2019-07-25 13:53 | disposition home or self-care (01) | DRG 776 ==
LOC: M ED 15:34 → M ED INP 18:56 → M PSY 21:49
PROVIDERS: ADMIT Psychiatry & Neurology Psychiatry; ATTEND Psychiatry & Neurology Addiction Medicine
DX: F15.159 Other stimulant abuse with stimulant-induced psychotic disorder, unspecified (principal); F12.10 Cannabis abuse, uncomplicated; Z59.0 Homelessness; F17.200 Nicotine dependence, unspecified, uncomplicated; F22 Delusional disorders

== ENCOUNTER 2019-11-06 01:06 | Inpatient (IN) | payer MEDICAID, OTHER ==
[~2019-11-06] VITALS: Ht 180.3 cm; Wt 76.1 kg
[~2019-11-06 01:06] MED LIST changes: +ABIL1TAB11 PO; +PANT20TA6 PO
[2019-11-06 01:43] LABS: HEMATOCRIT 44.4 % (42.0-52.0); MEAN CORPUSCULAR HEMOGLOBIN 28.5 pg (27.0-33.0); MEAN CORPUSCULAR HGB CONC 33.8 g/dl (32.0-36.5); MEAN CORPUSCULAR VOLUME 84.3 fl (80.0-96.0); PLATELET COUNT, AUTOMATED 258 10^3/uL (150-450); RED BLOOD COUNT 5.27 10^6/uL (4.30-6.10); WHITE BLOOD COUNT 8.1 10^3/uL (4.0-10.0)
[2019-11-06 02:36] LABS: ACETAMINOPHEN LEVEL < 2.0 UG/ML (10.0-30.0); ALBUMIN 3.9 GM/DL (3.2-5.2); ALT/SGPT 18 U/L (12-78); BILIRUBIN,DIRECT 0.3 MG/DL (0.0-0.2); BLOOD UREA NITROGEN 15 MG/DL (7-18); CALCIUM LEVEL 9.2 MG/DL (8.5-10.1); CARBON DIOXIDE LEVEL 24 MEQ/L (21-32); CHLORIDE LEVEL 105 MEQ/L (98-107); CREATININE FOR GFR 0.95 MG/DL (0.70-1.30); ETHYL ALCOHOL (ETHANOL) < 0.003 % (0.000-0.010); GLOMERULAR FILTRATION RATE > 60.0 (>60); GLUCOSE, FASTING 90 MG/DL (70-100); POTASSIUM SERUM 3.8 MEQ/L (3.5-5.1); SALICYLATE LEVEL < 1.7 MG/DL (5.0-30.0); SODIUM LEVEL 136 MEQ/L (136-145); TOTAL PROTEIN 7.5 GM/DL (6.4-8.2)
[2019-11-06] MEDS ORDERED: PANT20TA6 PO (04:03)
[2019-11-06] MEDS ORDERED: ABIL1TAB11 PO (04:03)
[2019-11-06 05:03] LABS: AMPHETAMINES LEVEL URINE POSITIVE (NEGATIVE); BARBITURATES URINE NEGATIVE (NEGATIVE); BENZODIAZEPINES URINE NEGATIVE (NEGATIVE); CANNABINOIDS URINE NEGATIVE (NEGATIVE); COCAINE METABOLITE URINE NEGATIVE (NEGATIVE); METHADONE URINE NEGATIVE (NEGATIVE); OPIATES URINE NEGATIVE (NEGATIVE); PHENCYCLIDINE URINE NEGATIVE (NEGATIVE)
[2019-11-06] MEDS ORDERED: MOM 30ML SUSPENSION UDC PO PRN (05:30)
[2019-11-06] MEDS ORDERED: traZODone 50 MG TAB PO PRN (05:30)
[2019-11-06] MEDS ORDERED: LORazepam 2 MG TAB PO PRN (05:30)
[2019-11-06] MEDS ORDERED: MAALOX 30 ML SUSP *UDC PO PRN (05:30)
[2019-11-06] MEDS ORDERED: ACETAMINOPHEN TAB 650MG DOSE (2X325MG) PO PRN (05:30)
[2019-11-06 09:04] VITALS: BP 109/67
[2019-11-06] MEDS: FOLIC ACID 1 MG TAB PO SCH (10:09)
[2019-11-06] MEDS: PANTOPRAZOLE 20 MG TAB PO SCH (10:09)
[2019-11-06] MEDS: MULTIVITAMINS/MINERALS THERAP 1 TAB PO SCH (10:09)
[2019-11-06] MEDS: THIAMINE 100 MG TAB PO SCH ×3 (10:09→21:59)
--- NOTE | 2019-11-06 12:12 | MHHPEPDOC ---
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 Patient met with briefly. He reports symptoms consistent with thinking others are electrocuting him. Long history of psychosis and positive for methamphetamines. Does not engage much in interview. MEDICATIONS: Reports he is not on any current medications or following with any medication regiment at this time. MEDICAL HISTORY: History of substance abuse, psychosis, multiple admissions and history of suicide attempts. Allergies were reviewed. SOCIAL HISTORY - LIVING SITUATION: Living in an apartment alone. Previously been TLS, but was kicked out due to legal problems. SOCIAL HISTORY - SUBSTANCE USE: Substance abuse was stated above. SURGICAL HISTORY: Surgical history was reviewed. Objective Behavior: Laying on bed. Does not engage much. Answers questions. Reports that he wants to shoot anyone that is trying to electrocute him. Judgement: Poor. Insight: Poor. Assessment F15.959 Other stimulant use, unspecified with stimulant-induced psychotic disorder, unspecified Plan Observe, will see if patient self-resolves. Treatment priorities are one, risk for aggression 2, altered thoughts. Estimate his length of stay is 1-5 days. Vital Signs Vital Signs Date Time Temp Pulse Resp B/P (MAP) Pulse Ox O2 Delivery O2 Flow Rate FiO2 11/06/19 09:04 97.7 75 18 109/67 (81) 98 Room Air Laboratory Data 24H Labs Laboratory Tests 2 11/06/19 01:31: Urine Opiates Screen NEGATIVE, Urine Methadone Screen NEGATIVE, Urine Barbiturates Screen NEGATIVE, Urine Phencyclidine Screen NEGATIVE, Urine Amphetamines Screen POSITIVEH, Urine Benzodiazepines Screen NEGATIVE, Urine Shakir lucy Metabolite Screen NEGATIVE, Urine Cannabinoids Screen NEGATIVE 11/06/19 01:37: Nucleated Red Blood Cells % (auto) 0.0, Anion Gap 7L, Glomerular Filtration Rate > 60.0, Calcium Level 9.2, Total Bilirubin 1.0, Direct Bilirubin 0.3H, Aspartate Amino Transf (AST/SGOT) 18, Alanine Aminotransferase (ALT/SGPT) 18, Alkaline Phosphatase 86, Total Protein 7.5, Albumin 3.9, Albumin/Globulin Ratio 1.1, Thyroid Stimulating Hormone (TSH) 1.570, Salicylates Level < 1.7L, Acetaminophen Level < 2.0L, Ethyl Alcohol Level < 0.003 CBC/BMP Laboratory Tests 11/06/19 01:37 Medications Scheduled Aripiprazole (Abilify) 5 Mg Tablet, 5 MG PO DAILY, (Reported) Pantoprazole Sodium (Pantoprazole Sodium) 20 Mg Tablet.dr, 20 MG PO DAILY, (Reported) Allergies Coded Allergies: No Known Allergies (Unverified , 06/30/19) SEVERO FLORES DO Nov 06, 2019 12:12
[2019-11-06 14:37] VITALS: BP 120/70
[2019-11-06 16:21] VITALS: BP 122/67
--- NOTE | 2019-11-06 18:29 | HPEPDOC ---
General Date of Admission Nov 06, 2019 at 05:17 Date of Service: Nov 06, 2019 Chief Complaint The patient is a 48-year-old male admitted with a reason for visit of Unspecified Psychosis. Source: Patient Exam Limitations: No limitations Timing/Duration: Week(s) Severity: Moderate History of Present Illness Patient's 48 years old male with past medical history of ADHD who was admitted to mental health unit with psychosis. Patient told me that he knocked neighbor's door multiple times and then the police came and brought him here. Patient stated that he has been having ADHD, however he didn't take any medications. In ER patient was found to have positive urine tox screen for amphetamines During my interview patient denied fever, chills, nausea, vomiting, diarrhea or dysuria. Patient stated that he saw primary care physician around 1 year ago Home Medications Scheduled Aripiprazole (Abilify) 5 Mg Tablet, 5 MG PO DAILY, (Reported) Pantoprazole Sodium (Pantoprazole Sodium) 20 Mg Tablet.dr, 20 MG PO DAILY, (Reported) Allergies Coded Allergies: No Known Allergies (Unverified , 06/30/19) Past Medical History Medical History ADHD Family History Mother from cancer Social History * Smoker: current smoker Alcohol: Denies Drugs: IV drug use (methamphetamine) A-FIB/CHADSVASC A-FIB History Current/History of A-Fib/PAF?: No Current PO Anticoag Therapy: No Review of Systems Constitutional: Denies: Chills, Fever Eyes: Denies: Pain ENT: Denies: Head Aches Skin: Denies: Rash Pulmonary: Denies: Dyspnea Cardiovascular: Denies: Chest Pain Gastrointestinal: Denies: Nausea, Vomiting Genitourinary: Denies: Dysuria Hematologic: Denies: Bruising Endocrine: Denies: Polydipsia Musculoskeletal: Denies: Neck Pain Neurological: Denies: Weakness Psych: Reports: Anxiety Physical Examination General Exam: Positive: Alert, Cooperative Eye Exam: Positive: PERRLA ENT Exam: Positive: Atraumatic Neck Exam: Positive: Supple; Negative: JVD Chest Exam: Positive: Clear to auscultation Heart Exam: Positive: Rate Normal Telemetry: Positive: No significant arrhythmia Abdomen Exam: Positive: Normal bowel sounds Extremity Exam: Negative: Clubbing, Cyanosis Skin Exam: Positive: Nl turgor and temperature Neuro Exam: Positive: Normal Gait, Strength at 5/5 X4 ext Psych Exam: Positive: Anxiety; Negative: Mental status NL Vital Signs Vital Signs Date Time Temp Pulse Resp B/P (MAP) Pulse Ox O2 Delivery O2 Flow Rate FiO2 11/06/19 16:21 97.9 75 18 122/67 (85) 11/06/19 09:04 98 Room Air Laboratory Data Labs 24H Laboratory Tests 2 11/06/19 01:31: Urine Opiates Screen NEGATIVE, Urine Methadone Screen NEGATIVE, Urine Barbiturates Screen NEGATIVE, Urine Phencyclidine Screen NEGATIVE, Urine Amph etamines Screen POSITIVEH, Urine Benzodiazepines Screen NEGATIVE, Urine Cocaine Metabolite Screen NEGATIVE, Urine Cannabinoids Screen NEGATIVE 11/06/19 01:37: Nucleated Red Blood Cells % (auto) 0.0, Anion Gap 7L, Glomerular Filtration Rate > 60.0, Calcium Level 9.2, Total Bilirubin 1.0, Direct Bilirubin 0.3H, Aspartate Amino Transf (AST/SGOT) 18, Alanine Aminotransferase (ALT/SGPT) 18, Alkaline Phosphatase 86, Total Protein 7.5, Albumin 3.9, Albumin/Globulin Ratio 1.1, Thyroid Stimulating Hormone (TSH) 1.570, Salicylates Level < 1.7L, Acetaminophen Level < 2.0L, Ethyl Alcohol Level < 0.003 CBC/BMP Laboratory Tests 11/06/19 01:37 Assessment/Plan Patient's 48 years old male with past medical history of ADHD who was admitted to mental health unit with psychosis. Patient told me that he knocked neighbor's door multiple times and then the police came and brought him here. Patient stated that he has been having ADHD, however he didn't take any medications. During my interview patient denied fever, chills, nausea, vomiting, diarrhea or dysuria Problems (1) Psychosis Status: Resolved Problem Text: Defer treatment to psych team (2) Polysubstance abuse Status: Chronic Problem Text: Defer treatment to psych team (3) Anxiety Status: Acute Problem Text: Defer treatment to psych team Plan / VTE VTE Prophylaxis Ordered?: No VTE Exclusion Mechanical Proph: Low Risk for VTE MARK SANCHEZ DO Nov 06, 2019 18:28
[2019-11-06 22:08] VITALS: BP 122/58
[2019-11-07 06:00] VITALS: BP 107/59
[2019-11-07 06:23] VITALS: BP 107/59
[2019-11-07] MEDS: FOLIC ACID 1 MG TAB PO SCH (09:28)
[2019-11-07] MEDS: THIAMINE 100 MG TAB PO SCH ×2 (09:28→20:32)
[2019-11-07] MEDS: PANTOPRAZOLE 20 MG TAB PO SCH (09:28)
[2019-11-07] MEDS: MULTIVITAMINS/MINERALS THERAP 1 TAB PO SCH (09:28)
--- NOTE | 2019-11-07 13:47 | MHIPNPDOC ---
[facility] Progress Note Progress Note DATE OF SERVICE: 11/07/19 HISTORY: Reports others are electrocuting him. Long history of psychosis and positive for methamphetamines. Does not engage much in interview. Reports that this feeling that others are electrocuting him has been going on for a long time. VITAL SIGNS: See below. NEW TEST RESULTS: . CURRENT MEDICATIONS: See below. MENTAL STATUS EXAMINATION: Patient is a 48-year old male, who is admitted to [facility] for delusional and paranoid thoughts. Speech: Is demonstrates mild poverty of speech. Language skills are average. Thought processes including: loose, having delusional thoughts about neighbors running wires to electrocute him. Thought content: denies depression, anxiety and suicidal ideation. But states he feels homicidal, states that if he doesn't get relief he is going to kill the person that is causing this feeling of electricity. The wires are running under his house. Paranoid, delusional. Abstract reasoning, and computation: fair. Description of associations:. Description of abnormal or psychotic thoughts: delusional thoughts about being electrocuted Judgment: poor Insight: poor Orientation: alert and oriented x 3 Recent and remote memory: fairly intact Attention span and concentration: poor Language: fair Fund of knowledge: below average Mood: irritable Affect: constricted. DIAGNOSES: 1. Methamphetamine Use Disorder ASSESSMENT: Patient presents as irritable and agitated. When asked about people that are causing him to feel electrocuted, he states, "I don't want to talk about it, I don't want to go over this again. Every time I talk about it, I just get angry all over again. Patient remains paranoid and delusional. He also made general homicidal statement that he wants to kill the person who is running the wires under his home. Patient is not stable for discharge at this writing. MANAGEMENT PLAN: Continue medications, discharge when stable TIME SPENT: 10 minutes. Vital Signs Vital Signs Date Time Temp Pulse Resp B/P (MAP) Pulse Ox O2 Delivery O2 Flow Rate FiO2 11/07/19 06:23 97.0 61 16 107/59 (75) 97 Room Air Current Medications Current Medications Medications (Trade) Dose Ordered Sig/Gretchen Route PRN Reason Start Time Stop Time Status Last Admin Dose Admin Acetaminophen (Tylenol Tab) 650 mg Q6HP PRN PO HEADACHE or DISCOMFORT 11/06/19 05:30 Al Hydrox/Mg Hydrox/Simethicone (Mylanta) 30 ml Q4HP PRN PO HEARTBURN/INDIGESTION 11/06/19 05:30 11/06/19 23:10 Aripiprazole (AbiLIFY) 5 mg DAILY PO 11/06/19 09:00 11/07/19 09:28 Folic Acid (Folic Acid) 1 mg DAILY PO 11/06/19 09:00 11/07/19 09:28 Home Med (Med Rec Complete!) ASDIRECTED XX 11/06/19 04:15 11/06/19 04:04 DC Lorazepam (Ativan) 2 mg ASDIRECTED PRN PO SEE PROTOCOL 11/06/19 05:30 Magnesium Hydroxide (Milk Of Magnesia) 30 ml DAILYPRN PRN PO CONSTIPATION 11/06/19 05:30 Multivitamins (Theragram-M) 1 tab DAILY PO 11/06/19 09:00 11/07/19 09:28 Pantoprazole Sodium (Protonix) 20 mg DAILY PO 11/06/19 09:00 11/07/19 09:28 Thiamine HCl (Thiamine HCl) 100 mg BID PO 11/06/19 09:00 11/09/19 08:59 11/07/19 09:28 Trazodone HCl (Desyrel) 50 mg QHSP PRN PO INSOMNIA 11/06/19 05:30 Allergies Coded Allergies: No Known Allergies (Unverified , 06/30/19) CARTER PEREZ NP Nov 07, 2019 13:47
[2019-11-07 14:30] VITALS: BP_SYST 110; BP_SYST 126; BP_DIAS 59; BP_DIAS 65
[2019-11-07 17:50] VITALS: BP 110/59
[2019-11-08 06:42] VITALS: BP 116/60
[2019-11-08] MEDS: PANTOPRAZOLE 20 MG TAB PO SCH (09:20)
[2019-11-08] MEDS: FOLIC ACID 1 MG TAB PO SCH (09:21)
[2019-11-08] MEDS: MULTIVITAMINS/MINERALS THERAP 1 TAB PO SCH (09:21)
[2019-11-08] MEDS: THIAMINE 100 MG TAB PO SCH ×2 (09:21→21:00)
[2019-11-08 16:00] VITALS: BP 149/73
[2019-11-08 18:13] VITALS: BP 149/73
[2019-11-09 07:02] VITALS: BP 129/83
[2019-11-09] MEDS: PANTOPRAZOLE 20 MG TAB PO SCH (08:14)
[2019-11-09] MEDS: MULTIVITAMINS/MINERALS THERAP 1 TAB PO SCH (08:14)
[2019-11-09] MEDS: FOLIC ACID 1 MG TAB PO SCH (08:14)
[2019-11-09 11:00] VITALS: BP 129/83
[2019-11-09 15:35] VITALS: BP 100/74
--- NOTE | 2019-11-09 16:07 | MHIPNPDOC ---
[facility] Progress Note Progress Note DATE OF SERVICE: 11/09/19 Subjective HPI: anthony presents today for concerns regarding his psych issues. Patient was met with today. He reports he is doing well and no longer and no longer harbors strange thoughts of going to harm others. He reports he is generally doing well and has returned to his previous baseline. Staff reports that he generally has been doing well without any major incident and no other problems noted. MEDICATIONS: He has been taking Abilify as prescribed. Objective Appearance: Appears to be stated age. Well groomed. Well nourished. Behavior: Engaged. Pleasant. Cooperative with good eye contact. Affect: Full range. Appropriate to context. Mood: Euthymic. Generally good. Appropriately reactive. Speech: Spontaneous and Fluid. Normal rate. Normal volume. Motor: No gross motor abnormalities. Cognition: Alert, Attentive, and Oriented to person, place, time. Memory: No formal testing. No gross abnormalities of short or prison memory noted during interview. Thought Form: Linear and goal directed. Thought Content: No evidence of aggressive or homicidal ideation. No evidence of suicidal ideation. No evidence of delusions. No thoughts of self harm. Perception: No perceptual abnormalities noted. Judgement: Intact as evidenced by decision making in the recent past. Insight: Good insight into symptoms and treatment options. Assessment F19.959 Other psychoactive substance use, unspecified with psychoactive substance-induced psychotic disorder, unspecified F60.2 Antisocial personality disorder F15.20 Other stimulant dependence, uncomplicated Plan Continue Abilify. Likely beneficial. Will triage for discharge tomorrow. There had been some concerns raised by his sister reportedly that he when using is quite aggressive and violent, however, he has been the exact opposite on observation. When discussed with patient he reports that when he uses he tends to be much different and that this does not represent him who he is. The information supplied by his sister did not contribute greatly to the already current database of information in regard to his treatment. Vital Signs Vital Signs Date Time Temp Pulse Resp B/P (MAP) Pulse Ox O2 Delivery O2 Flow Rate FiO2 11/09/19 15:35 98.3 92 18 100/74 (83) 11/09/19 07:02 97 Room Air Current Medications Current Medications Medications (Trade) Dose Ordered Sig/Gretchen Route PRN Reason Start Time Stop Time Status Last Admin Dose Admin Acetaminophen (Tylenol Tab) 650 mg Q6HP PRN PO HEADACHE or DISCOMFORT 11/06/19 05:30 Al Hydrox/Mg Hydrox/Simethicone (Mylanta) 30 ml Q4HP PRN PO HEARTBURN/INDIGESTION 11/06/19 05:30 11/06/19 23:10 Aripiprazole (AbiLIFY) 5 mg DAILY PO 11/06/19 09:00 11/09/19 08:14 Folic Acid (Folic Acid) 1 mg DAILY PO 11/06/19 09:00 11/09/19 08:14 Home Med (Med Rec Complete!) ASDIRECTED XX 11/06/19 04:15 11/06/19 04:04 DC Lorazepam (Ativan) 2 mg ASDIRECTED PRN PO SEE PROTOCOL 11/06/19 05:30 Magnesium Hydroxide (Milk Of Magnesia) 30 ml DAILYPRN PRN PO CONSTIPATION 11/06/19 05:30 Multivitamins (Theragram-M) 1 tab DAILY PO 11/06/19 09:00 11/09/19 08:14 Pantoprazole Sodium (Protonix) 20 mg DAILY PO 11/06/19 09:00 11/09/19 08:14 Thiamine HCl (Thiamine HCl) 100 mg BID PO 11/06/19 09:00 11/09/19 08:59 DC 11/08/19 09:21 Trazodone HCl (Desyrel) 50 mg QHSP PRN PO INSOMNIA 11/06/19 05:30 Allergies Coded Allergies: No Known Allergies (Unverified , 06/30/19) SEVERO FLORES DO Nov 09, 2019 16:07
[2019-11-09] MEDS ORDERED: PANTOPRAZOLE 20 MG TAB PO ONE (16:15)
[2019-11-10 05:00] VITALS: BP 118/66
[2019-11-10 06:34] VITALS: BP 118/66
[2019-11-10] MEDS ORDERED: PANTOPRAZOLE 20 MG TAB PO SCH (09:00)
[2019-11-10] MEDS: PANTOPRAZOLE 20 MG TAB PO SCH (09:03)
[2019-11-10] MEDS: FOLIC ACID 1 MG TAB PO SCH (09:03)
[2019-11-10] MEDS: MULTIVITAMINS/MINERALS THERAP 1 TAB PO SCH (09:03)
--- NOTE | 2019-11-10 10:30 | MHDSPDOC ---
[facility] Discharge Summary Discharge Summary DATE OF ADMISSION: Nov 06, 2019 at 05:17 DATE OF DISCHARGE: Nov 10, 2019 at 14:40 DISCHARGE DIAGNOSES: F19.959 Other psychoactive substance use, unspecified with psychoactive substance-induced psychotic disorder, unspecified F60.2 Antisocial personality disorder F15.20 Other stimulant dependence, uncomplicated CONSULTANTS INVOLVED:[ None (basic hospitalist screening)] REASON FOR ADMISSION & TREATMENT AND PROGRESS ON THE UNIT : The patient was admitted to the inpatient unit, restarted on Abilify as he had been on the past, his initially psychotic thing the people were out to electrocute him and that he had homicidal thoughts towards him. He progressed well as is methamphetamine intoxication resolved. He generally returned to a normal mental status exam endorsing no significant paranoid ideation or other problems as he is on a multiple previous admissions. The patient still was pre- contemplative about substance use treatment despite our continued advocating. He did well without any major behavioral problems on the unit and began to attend groups more frequently. DISCHARGE ASSESSMENT[improved] Legal status considerations: The patient at the time of discharge did not meet criteria for involuntary admission/extension due to having a [normal] mental status exam, baseline insight into the situation, They are engaged in the discharge process, as well as being friendly and amenable in behavioral control and havent been engaging in any observed concerning behavior or ideation recently. They decline voluntary extension/admission at this time and must be discharged in good aline, as Im unable to make a case for holding the patient against their will. They may have historical risk factors of admissions and other interactions with psychiatry however, those are not modifiable from a clinical perspective. The patient will need to be discharged in good aline. MENTAL STATUS EXAMINATION ON DISCHARGE: General: [Well dressed with good hygiene] Speech: [Spontaneous and fluid] Thought processes: [Linear and logical] Thought content: [Future orientated] Abstract reasoning, and computation: [Intact] Description of associations: [Intact] Description of abnormal or psychotic thoughts:[Denies any suicidal or homicidal ideation. Denies any auditory or visual hallucinations. Does not appear to be responding to internal stimuli. Does not appear to be endorsing any bizarre or paranoid ideation.] Judgment: baseline Insight:, baseline Orientation: [Alert and orientated 3] Recent and remote memory: [Intact] Attention span and concentration: [Intact] Fund of knowledge: [Adequate] Mood: ["okay"] Affect: [Euthymic with a full range] PLAN/FOLLOWUP ARRANGEMENTS: Follow up appointments made (PCP and MH in 5 days of D/C date) and safety plan completed. Safety Planning aspects completed prior to discharge [Medication supplies limited to 7 days with 4 refills to prevent accumulation to OD] [RN reviewed crisis hotline information and other aspects to empower patient to access care in interim before next appointment.] The amount of time spent in the coordination of care for this patient was approximately 30 minutes. Vital Signs/I&Os Vital Signs Date Time Temp Pulse Resp B/P (MAP) Pulse Ox O2 Delivery O2 Flow Rate FiO2 11/10/19 06:34 99.0 68 12 118/66 (83) Room Air 11/09/19 07:02 97 Medications Scheduled Aripiprazole (Abilify) 5 Mg Tablet, 5 MG PO DAILY for mood for 7 Days, #7 Pantoprazole Sodium (Pantoprazole Sodium) 20 Mg Tablet.dr, 20 MG PO DAILY, (Reported) Allergies Coded Allergies: No Known Allergies (Unverified , 06/30/19) SEVERO FLORES DO Nov 10, 2019 10:30
[2019-11-10] MEDS ORDERED: ABIL1TAB11 PO (11:17)
== END 2019-11-10 14:40 | disposition home or self-care (01) | DRG 776 ==
LOC: M ED 01:06 → M ED INP 05:17 → M PSY 08:41
PROVIDERS: ADMIT Psychiatry & Neurology Addiction Medicine; ATTEND Psychiatry & Neurology Addiction Medicine
DX: F15.259 Other stimulant dependence with stimulant-induced psychotic disorder, unspecified (principal); F17.200 Nicotine dependence, unspecified, uncomplicated; F60.2 Antisocial personality disorder; F90.9 Attention-deficit hyperactivity disorder, unspecified type; Z79.899 Other long term (current) drug therapy

== ENCOUNTER → 2020-01-10 | Outpatient (CLI) | payer OTHER ==
[~2020-01-10] MED LIST changes: +RISP-8 PO; -RISP1TAB3 PO
== END ==
LOC: M LABSMTC 12:55
PROVIDERS: ATTEND Family Medicine
DX: Z20.828 Contact with and (suspected) exposure to other viral communicable diseases (principal)

== ENCOUNTER 2020-02-01 09:58 | Emergency (ER) | payer MEDICAID, OTHER ==
[~2020-02-01] VITALS: Ht 180.3 cm; Wt 77.3 kg
[2020-02-01 10:45] LABS: HEMATOCRIT 47.2 % (42.0-52.0); HEMOGLOBIN 15.7 g/dl (13.5-17.5); MEAN CORPUSCULAR HEMOGLOBIN 28.6 pg (27.0-33.0); MEAN CORPUSCULAR HGB CONC 33.3 g/dl (32.0-36.5); PLATELET COUNT, AUTOMATED 248 10^3/uL (150-450); RED BLOOD COUNT 5.49 10^6/uL (4.30-6.10); WHITE BLOOD COUNT 8.1 10^3/uL (4.0-10.0)
[2020-02-01 11:08] LABS: ACETAMINOPHEN LEVEL < 2.0 UG/ML (10.0-30.0); ALBUMIN 4.2 GM/DL (3.2-5.2); ALT/SGPT 31 U/L (12-78); BILIRUBIN,DIRECT 0.3 MG/DL (0.0-0.2); BLOOD UREA NITROGEN 22 MG/DL (7-18); CARBON DIOXIDE LEVEL 27 MEQ/L (21-32); CHLORIDE LEVEL 102 MEQ/L (98-107); CREATININE FOR GFR 1.05 MG/DL (0.70-1.30); ETHYL ALCOHOL (ETHANOL) < 0.003 % (0.000-0.010); GLOMERULAR FILTRATION RATE > 60.0 (>60); GLUCOSE, FASTING 101 MG/DL (70-100); POTASSIUM SERUM 3.8 MEQ/L (3.5-5.1); SALICYLATE LEVEL < 1.7 MG/DL (5.0-30.0); SODIUM LEVEL 137 MEQ/L (136-145); THYROID STIMULATING HORMONE 0.678 uIU/ML (0.358-3.740); TOTAL PROTEIN 7.8 GM/DL (6.4-8.2)
[2020-02-01 13:04] LABS: AMPHETAMINES LEVEL URINE POSITIVE (NEGATIVE); BARBITURATES URINE NEGATIVE (NEGATIVE); BENZODIAZEPINES URINE NEGATIVE (NEGATIVE); CANNABINOIDS URINE NEGATIVE (NEGATIVE); COCAINE METABOLITE URINE NEGATIVE (NEGATIVE); METHADONE URINE NEGATIVE (NEGATIVE); OPIATES URINE NEGATIVE (NEGATIVE); PHENCYCLIDINE URINE NEGATIVE (NEGATIVE)
[2020-02-01 14:01] LABS: CPK CREATINE PHOSPHOKINASE 883 U/L (39-308)
[2020-02-01 19:39] LABS: RSV AMPLIFICATION NEGATIVE (NEGATIVE)
[2020-02-01 22:33] VITALS: BP 119/58
--- NOTE | 2020-02-02 13:31 | ECGEPIP ---
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
== END 2020-02-01 22:33 ==
LOC: M ED 09:58
DX: F29 Unspecified psychosis not due to a substance or known physiological condition (principal); F90.9 Attention-deficit hyperactivity disorder, unspecified type; F15.20 Other stimulant dependence, uncomplicated
CPT/HCPCS: 36415; 80048; 80076; 80307; 82550; 84443; 85027; 87631; 93005; 99285; G0480

== ENCOUNTER 2020-02-24 15:11 | Inpatient (IN) | payer MEDICAID, OTHER ==
[~2020-02-24] VITALS: Ht 180.3 cm; Wt 80.8 kg
[2020-02-24 15:47] LABS: HEMATOCRIT 45.4 % (42.0-52.0); HEMOGLOBIN 15.1 g/dl (13.5-17.5); MEAN CORPUSCULAR HEMOGLOBIN 28.3 pg (27.0-33.0); MEAN CORPUSCULAR HGB CONC 33.3 g/dl (32.0-36.5); PLATELET COUNT, AUTOMATED 283 10^3/uL (150-450); RED BLOOD COUNT 5.34 10^6/uL (4.30-6.10); WHITE BLOOD COUNT 10.6 10^3/uL (4.0-10.0)
[2020-02-24 16:32] LABS: ACETAMINOPHEN LEVEL < 2.0 UG/ML (10.0-30.0); ALBUMIN 4.4 GM/DL (3.2-5.2); ALT/SGPT 30 U/L (12-78); BILIRUBIN,DIRECT 0.3 MG/DL (0.0-0.2); BILIRUBIN,TOTAL 1.1 MG/DL (0.2-1.0); BLOOD UREA NITROGEN 27 MG/DL (7-18); CALCIUM LEVEL 9.6 MG/DL (8.5-10.1); CARBON DIOXIDE LEVEL 23 MEQ/L (21-32); CHLORIDE LEVEL 106 MEQ/L (98-107); CREATININE FOR GFR 1.11 MG/DL (0.70-1.30); ETHYL ALCOHOL (ETHANOL) < 0.003 % (0.000-0.010); GLOMERULAR FILTRATION RATE > 60.0 (>60); GLUCOSE, FASTING 92 MG/DL (70-100); POTASSIUM SERUM 4.2 MEQ/L (3.5-5.1); SALICYLATE LEVEL < 1.7 MG/DL (5.0-30.0); SODIUM LEVEL 138 MEQ/L (136-145); TOTAL PROTEIN 7.8 GM/DL (6.4-8.2)
[2020-02-24] MEDS ORDERED: OLANZapine INTRAMUSCULAR 10MG VIAL IM ONE (17:30)
[2020-02-24 17:56] LABS: AMPHETAMINES LEVEL URINE POSITIVE (NEGATIVE); BARBITURATES URINE NEGATIVE (NEGATIVE); BENZODIAZEPINES URINE NEGATIVE (NEGATIVE); CANNABINOIDS URINE POSITIVE (NEGATIVE); COCAINE METABOLITE URINE POSITIVE (NEGATIVE); METHADONE URINE NEGATIVE (NEGATIVE); OPIATES URINE NEGATIVE (NEGATIVE); PHENCYCLIDINE URINE NEGATIVE (NEGATIVE)
[2020-02-25] MEDS ORDERED: ACETAMINOPHEN TAB 650MG DOSE (2X325MG) PO PRN (01:30)
[2020-02-25] MEDS ORDERED: OLANZapine ORAL DISINTEGRATING TAB 5MG PO PRN (01:30)
[2020-02-25] MEDS ORDERED: MAALOX 30 ML SUSP *UDC PO PRN (01:30)
[2020-02-25] MEDS ORDERED: NICOTINE 21MG/24HR 1 EA TRANSDERMAL TD PRN (01:30)
[2020-02-25] MEDS ORDERED: MOM 30ML SUSPENSION UDC PO PRN (01:30)
[2020-02-25 11:14] VITALS: BP 116/63
[2020-02-25 16:32] VITALS: BP 115/57
--- NOTE | 2020-02-25 19:00 | MHHPE ---
COUNTS INCLUDE 234 BEDS AT THE [facility] HISTORY AND PHYSICAL DATE OF ADMISSION: 02/24/2020 DATE OF EVALUATION: 02/25/2020 HISTORY OF PRESENT ILLNESS: This is one of multiple admissions for this 49-year-old man with a history of schizoaffective disorder and severe methamphetamine abuse with history of getting violent in the past. Apparently the patient has been very delusional, feeling that he is being electrocuted by the oven, and so he has put in the oven in his apartment in the middle of the kitchen, and he is heating himself by using the oven, because he is afraid of using the heaters in the apartment. He has been punching almendarez, making holes in them. He has been threatening [facility] ([facility]) mental health case manager and saying that he is going to go and kill everyone. He lives at a [facility] apartment program. The patient was very agitated when I saw him. He feels that he does not have any psychiatric problems except for attention deficit hyperactivity disorder (ADHD), and he says that all they wanted to prescribe for him was Wellbutrin, and he says that is for people that want to quit smoking. He feels that nobody wants to help him, and he admits that he voiced threats against [facility], because he does not feel that they are trying to help him either. PAST PSYCHIATRIC HISTORY: This is obtained from prior records, as we are not able to obtain much history from the patient. The patient was last admitted 11/06/2019 to 11/10/2019, diagnosed with other psychoactive substance use, unspecified, with psychoactive substance-induced psychotic disorder and antisocial personality disorder and other stimulant dependence. The patient was discharged on Abilify 5 mg daily. He presented also with similar delusions that people were trying to electrocute him and with homicidal thoughts toward him, and it looks like he had been abusing some methamphetamine at that time. Also the patient was admitted to [facility] on 02/01/2020. At the time, he had destroyed property in the apartment and tore the electrical system on the wall, believing that he was being electrocuted. Following discharge from that hospital, he did not take any medications and did not followup, and he is believed to have begun using methamphetamine again shortly after returning home. He does have a history of multiple prior admissions and noncompliance with treatment. The patient denies that he has ever tried to hurt himself. FAMILY HISTORY: He denies any psychiatric illness in the family. I do not know how reliable that is. MEDICAL HISTORY: He denies any medical problems. SUBSTANCE ABUSE HISTORY: He tells me does not use any drugs, but he clearly has a history of methamphetamine abuse. REVIEW OF SYSTEMS: VITAL SIGNS: Blood pressure 129/66, pulse 71, respiration 18. APPEARANCE: He did not appear to be in any apparent distress. NEUROMUSCULAR SYSTEM: The patient's gait is normal, and there were no involuntary movements noted. All other systems were reviewed and found to be negative. MENTAL STATUS EXAMINATION: This patient was hostile and agitated. He kept on repeating his threats toward [facility] staff, stating that it was because they do not help him. His speech was pressured. He seemed to have flight of ideas. Mood is angry. Affect labile. He has delusions about being electrocuted, as noted above. He denies suicidal ideation but admits to homicidal thoughts toward [facility] staff. Concentration is fair. Memory is intact. Insight and judgment are poor. DIAGNOSES: 1. Unspecified psychotic disorder, rule out schizophrenia versus schizoaffective disorder. 2. Methamphetamine use disorder, rule out substance-induced psychotic disorder. TREATMENT PLAN: At this point, patient has no insight. Attention is poor. He is acutely psychotic. I have started him again on the Abilify that he was on upon discharge the last time. He was discharged on Abilify 5 mg daily, but I do not know how reliable he is going to be with that with taking it. We will continue to monitor the patient for psychotic symptoms and titrate medications as indicated until he finally gets stabilized. MTDD
[2020-02-26 06:30] VITALS: BP 129/66
[2020-02-26 16:15] VITALS: BP 100/55
[2020-02-27 07:09] VITALS: BP 113/57
--- NOTE | 2020-02-27 15:00 | MHIPNPDOC ---
[facility] Progress Note Progress Note DATE OF SERVICE: 02/27/20 HISTORY: This is one of multiple admissions for this 49-year-old Single, Disabled, Domiciled, male with a history of schizoaffective disorder and severe methamphetamine abuse with history of getting violent in the past. Apparently the patient has been very delusional, feeling that he is being electrocuted by the oven, and so he has put in the oven in his apartment in the middle of the kitchen, and he is heating himself by using the oven, because he is afraid of using the heaters in the apartment. He has been punching almendarez, making holes in them. He has been threatening [facility] ([facility]) business case analyst and saying that he is going to go and kill everyone. He lives at a [facility] apartment program. The patient was very agitated when I saw him. He feels that he does not have any psychiatric problems except for attention deficit hyperactivity disorder (ADHD), and he says that all they wanted to prescribe for him was Wellbutrin, and he says that is for people that want to quit smoking. He feels that nobody wants to help him, and he admits that he voiced threats against [facility], because he does not feel that they are trying to help him either. Patient arrived via [facility] after 45 p/u order was issued by the [facility]. The 9.45 was issued at request of patient's Supportive Ncqa Specialist from [facility] (Leroy Lucianalori: [phone] Ext. [phone]), who reported the following: Patient was here & transferred to [address] on 01/31. At that time he had destroyed property in his apartment, including breaking windows & punching holes in almendarez. He had torn into the electrical system as well, believing that he was being electrocuted. Following D/C from [facility], he had no outpatient follow up & did not take any medications. He is believed to begin using methamphetamine again shortly after returning home as well. Over the last couple of weeks the police have been called to the apartment multiple times, following complaints from neighbors, reporting that he breaks things, screams at all hours of the night & often threatens them. Last night he broke the shower head from the water source, forcing the buildings painter to shut the water off to all tenants in the building. The buildings painter noted that there is still broken glass throughout the apartment, and that patient has moved his range into the middle of the kitchen floor. He has apparently been heating the apartment at times with the oven, which neighbors have also complained about. Last week the [facility] Construction Operations Manager went to see him at the apartment & was quickly told to, "Fuck off", before having the door slammed in front of him. This morning Ms. Pepper spoke with patient on the phone. He continued to express paranoia about the electricity in his apartment, eventually stating that he was going to kill all embers of the [facility] staff, "Or at least come over there and kick somebody's ass". The patient was last admitted 11/06/2019 to 11/10/2019, diagnosed with other psychoactive substance use, unspecified, with psychoactive substance-induced psychotic disorder and antisocial personality disorder and other stimulant dependence VITAL SIGNS: See below. CURRENT MEDICATIONS: See below. MENTAL STATUS EXAMINATION: This is one of multiple admissions for this 49-year-old Single, Disabled, Domiciled, male with a history of schizoaffective disorder and severe methamphetamine abuse. Speech: Is .Patient arrived via [facility] after 9.45 p/u order was issued by the [facility]. The 9.45 was issued at request of patient's Supportive Ncqa Specialist from [facility] (Leroy Pepper: [phone] Ext. [phone]), who reported the following: Patient was here & transferred to [address] on 01/31. At that time he had destroyed property in his apartment, including breaking windows & punching holes in almendarez. In today's interview, patient is irritable, delusional and demanding to be discharged or given Stimulant for ADHD, which he has not been prescribed for se veral months per his report. He is disheveled, fair hygiene and grooming. Irritable and undertones of being very angry. He, at times had a hypervigilant stare Speech: Is fluid, normal rate, angry tone and loud volume Language skills are intact Thought processes including: linear, loose associations Thought content: denies depression and anxiety. Denies suicidal/homicidal ideation, planning or intent. Abstract reasoning, and computation: fair Description of associations: denies, observed to be delusional Description of abnormal or psychotic thoughts: denies, none observed. observed to be delusional Judgment: poor Insight: poor Orientation: alert and oriented to person, place Recent and remote memory: mildly intact Attention span and concentration: fair Language: moderate Fund of knowledge: average Mood: Labile Mood Affect: reactive DIAGNOSES: 1. Unspecified psychotic disorder, rule out schizophrenia versus schizoaffective disorder. 2. Methamphetamine use disorder, rule out substance-induced psychotic disorder. ASSESSMENT: Patient remains very paranoid, delusional and psychotic, demanding medications for only ADHD, which he has not be prescribed for quite some time. He reports that [facility] is not doing their job and he was upset with his roommate. States he had an electrical problem at this apartment and that twice he has been electrocuted and that he has issues with his roommate and with the neighbors. He appears very paranoid, reporting much of his current problems is because [facility] were not checking on him. He states that he was cleaning up after his roommate (feces and urine) and that these complaints about his roommate were not addressed by [facility]. He states that he no longer wants any assistance from [facility], although reporting that he lives in [facility] Housing. In the past, patient's delusions went as far as throwing a propane tank through his neighbors windows. In the interview, he was quite irritable and moderate undertones of being angry and he was demanding to have ADHD, reviewed with me that Wellbutrin was not an appropriate medications for his ADHD. He is quite irritable, hostile and agitated much of these are symptoms that may relate to his positive toxicology of Cocaine, Amphetamines and Cannabis. MANAGEMENT PLAN: Continue current regimen. Patient starting on Paliperidone 3 mg HS and hopefully will be agreeable to Invega Sustenna Long Acting Injectable. TIME SPENT: 25 minutes. Vital Signs Vital Signs Date Time Temp Pulse Resp B/P (MAP) Pulse Ox O2 Delivery O2 Flow Rate FiO2 02/27/20 07:09 98.8 61 16 113/57 (75) 96 Room Air Current Medications Current Medications Medications (Trade) Dose Ordered Sig/Gretchen Route PRN Reason Start Time Stop Time Status Last Admin Dose Admin Acetaminophen (Tylenol Tab) 650 mg Q6HP PRN PO HEADACHE or DISCOMFORT 02/25/20 01:30 Al Hydrox/Mg Hydrox/Simethicone (Mylanta) 30 ml Q4HP PRN PO HEARTBURN/INDIGESTION 02/25/20 01:30 Magnesium Hydroxide (Milk Of Magnesia) 30 ml DAILYPRN PRN PO CONSTIPATION 02/25/20 01:30 Nicotine (Nicoderm Cq 21mg) 1 patch DAILY PRN TD nicotine craving 02/25/20 01:30 Olanzapine (ZyPREXA ZYDIS) 5 mg Q4HP PRN PO AGITATION 02/25/20 01:30 Allergies Coded Allergies: No Known Allergies (Unverified , 06/30/19) CARTER PEREZ NP Feb 27, 2020 14:36
[2020-02-27 18:03] VITALS: BP 116/62
[2020-02-27] MEDS: PALIPERIDONE 3 MG ER TAB (INVEGA) PO SCH (20:55)
[2020-02-28 06:14] VITALS: BP 115/64
--- NOTE | 2020-02-28 16:48 | MHIPNPDOC ---
[facility] Progress Note Progress Note DATE OF SERVICE: 02/28/20 HISTORY: This is one of multiple admissions for this 49-year-old Single, Disabled, Domiciled, male with a history of schizoaffective disorder and severe methamphetamine abuse with history of getting violent in the past. Apparently the patient has been very delusional, feeling that he is being electrocuted by the oven, and so he has put in the oven in his apartment in the middle of the kitchen, and he is heating himself by using the oven, because he is afraid of using the heaters in the apartment. He has been punching almendarez, making holes in them. He has been threatening [facility] living [facility] ([facility]) case work aide and saying that he is going to go and kill everyone. He lives at a [facility] apartment program. The patient was very agitated when I saw him. He feels that he does not have any psychiatric problems except for attention deficit hyperactivity disorder (ADHD), and he says that all they wanted to prescribe for him was Wellbutrin, and he says that is for people that want to quit smoking. He feels that nobody wants to help him, and he admits that he voiced threats against [facility], because he does not feel that they are trying to help him either. Patient arrived via [facility] after 9.45 p/u order was issued by the [facility]. The 9.45 was issued at request of patient's Supportive Delicatessen Store Manager from [facility] (Stiven Lucianalori: [phone]. [phone]), who reported the following: Patient was here & transferred to [address] on 01/31. At that time he had destroyed property in his apartment, including breaking windows & punching holes in almendarez. He had torn into the electrical system as well, believing that he was being electrocuted. Following D/C from [facility], he had no outpatient follow up & did not take any medications. He is believed to begin using methamphetamine again shortly after returning home as well. Over the last couple of weeks the police have been called to the apartment multiple times, following complaints from neighbors, reporting that he breaks things, screams at all hours of the night & often threatens them. Last night he broke the shower head from the water source, forcing the building supplies salesperson retail to shut the water off to all tenants in the building. The building supplies salesperson retail noted that there is still broken glass throughout the apartment, and that patient has moved his range into the middle of the kitchen floor. He has apparently been heating the apartment at times with the oven, which neighbors have also complained about. Last week the [facility] Lead Loader went to see him at the apartment & was quickly told to, "Fuck off", before having the door slammed in front of him. This morning Ms. Pepper spoke with patient on the phone. He continued to express paranoia about the electricity in his apartment, eventually stating that he was going to kill all embers of the [facility] staff, "Or at least come over there and kick somebody's ass". The patient was last admitted 11/06/2019 to 11/10/2019, diagnosed with other psychoactive substance use, unspecified, with psychoactive substance-induced psychotic disorder and antisocial personality disorder and other stimulant dependence VITAL SIGNS: See below. CURRENT MEDICATIONS: See below. MENTAL STATUS EXAMINATION: This is one of multiple admissions for this 49-year-old Single, Disabled, Domiciled, male with a history of schizoaffective disorder and severe methamphetamine abuse. Speech: Is . In today's interview, patient is cordial, amenable and polite. He is vastly improved from yesterday's interview Speech: Is fluid, normal rate, tone and volume Language skills are intact Thought processes including: linear, reality based and goal oriented. Thought content: denies depression and anxiety. Has moderate and vague homicidal ideation, planning or intent. Abstract reasoning, and computation: fair Description of associations: denies, observed to be delusional and paranoid about [facility] Description of abnormal or psychotic thoughts: denies, none observed. observed to be delusional Judgment: poor Insight: poor Orientation: alert and oriented to person, place Recent and remote memory: mildly intact Attention span and concentration: fair Language: expansive Fund of knowledge: average Mood: euthymic Affect: Flat DIAGNOSES: 1. Unspecified psychotic disorder, rule out schizophrenia versus Schizoaffective disorder. 2. Methamphetamine use disorder, rule out substance-induced psychotic disorder. ASSESSMENT: Patient remains very paranoid, delusional. He reports that [facility] were not doing anything on his list of things to do, but that [facility] had requirements of him. "I don't want to have anything to do with them, if they ever come near me I will lay her out. I almost in their apartment, I did , I was electrocuted. And they even have surveillance on me. They are always watching me that's why I threw the propane tank at the window" He also states, "I don't have any issues, whatever you put me on is working, it's helping me with my focus" States again, that he was on medications for his ADHD and that he was receiving this from [facility]. Patient has not been taking medications for awhile according the Medication Reconciliation. Patient remains guarded, paranoia and delusional. Believes that [facility] are watching him, he makes several homicidal threats in the interview stating "I didn't make any threats, I just told that woman, if she comes anywhere near me I will lay her out." He is observed at times to be euphoric in the hallways and guarded other times. He is cooperating with treatment at this time but due to his poor insight, poor judgment and homicidal threats pt does not meet criteria for discharge. MANAGEMENT PLAN: Continue current regimen. Patient agreeable to Paliperidone, states that is keeping him under control, "I am focused." TIME SPENT: 25 minutes. Vital Signs Vital Signs Date Time Temp Pulse Resp B/P (MAP) Pulse Ox O2 Delivery O2 Flow Rate FiO2 02/28/20 06:14 98.3 61 18 115/64 (81) 97 Room Air Current Medications Current Medications Medications (Trade) Dose Ordered Sig/Gretchen Route PRN Reason Start Time Stop Time Status Last Admin Dose Admin Acetaminophen (Tylenol Tab) 650 mg Q6HP PRN PO HEADACHE or DISCOMFORT 02/25/20 01:30 Al Hydrox/Mg Hydrox/Simethicone (Mylanta) 30 ml Q4HP PRN PO HEARTBURN/INDIGESTION 02/25/20 01:30 02/28/20 08:31 Magnesium Hydroxide (Milk Of Magnesia) 30 ml DAILYPRN PRN PO CONSTIPATION 02/25/20 01:30 Nicotine (Nicoderm Cq 21mg) 1 patch DAILY PRN TD nicotine craving 02/25/20 01:30 Olanzapine (ZyPREXA ZYDIS) 5 mg Q4HP PRN PO AGITATION 02/25/20 01:30 Paliperidone (Invega) 3 mg QHS PO 02/27/20 21:00 02/27/20 20:55 Allergies Coded Allergies: No Known Allergies (Unverified , 06/30/19) CARTER PEREZ NP Feb 28, 2020 14:28
[2020-02-28 17:00] VITALS: BP 130/68
[2020-02-28] MEDS: PALIPERIDONE 3 MG ER TAB (INVEGA) PO SCH (20:34)
[2020-02-29 06:34] VITALS: BP 115/57
[2020-02-29] MEDS ORDERED: PALI1TAB2 PO (10:10)
[2020-02-29] MEDS ORDERED: PROT1TAB2 PO (10:10)
--- NOTE | 2020-02-29 12:55 | MHIPN ---
[facility] PROGRESS NOTE DATE: 02/26/2020 NOTE: The patient refused to see me today so I was unable to evaluate him.
--- NOTE | 2020-02-29 13:23 | MHDSPDOC ---
[facility] Discharge Summary Discharge Summary DATE OF ADMISSION: Feb 24, 2020 at 15:12 DATE OF DISCHARGE: DISCHARGE DIAGNOSES: 1. Unspecified psychotic disorder 2. History of Schizophrenia Disorder 3. Methamphetamine Use Disorder 4. Stimulant Use Disorder 5. Cannabis Use Disorder REASON FOR ADMISSION: This is one of multiple admissions for this 49-year-old Single, Disabled, Domiciled, male with a history of schizoaffective disorder and severe methamphetamine abuse with history of getting violent in the past. Apparently the patient has been very delusional, feeling that he is being electrocuted by the oven, and so he has put in the oven in his apartment in the middle of the kitchen, and he is heating himself by using the oven, because he is afraid of using the heaters in the apartment. He has been punching almendarez, making holes in them. He has been threatening transitional living services ([facility]) manager of case and saying that he is going to go and kill everyone. He lives at a [facility] apartment program. The patient was very agitated when I saw him. He feels that he does not have any psychiatric problems except for attention deficit hyperactivity disorder (ADHD), and he says that all they wanted to prescribe for him was Wellbutrin, and he says that is for people that want to quit smoking. He feels that nobody wants to help him, and he admits that he voiced threats against [facility], because he does not feel that they are trying to help him either. CONSULTANTS INVOLVED: see Medical H + P by Hospitalist TREATMENT AND PROGRESS ON THE UNIT : Patient was admitted to [facility] on a 9.39 legal status and was afforded the following treatment modalities: 1) Individual Therapy Sessions with Provider, 2)Group Therapy, 3) Medication Management, 4) Milieu Therapy, 5) Safe Environment HOSPITAL COURSE: Patient was admitted to [facility] on a 9.39 legal status and started on Paliperidone. For the first two days he still remained quite paranoid and delusional about staff at [facility] and their requirements of him. He was seen in the milieu and was appropriate with staff and peers. Up until yesterday he continued to harbor resentment and had no aline in the staff at [facility] reporting that they had not been following up on his complaints about his room mate and the upkeep he had cleaning up after this room mate. He also complained that [facility] was requiring him to comply with their requests to which he said he was not going to do. He continued to report that he had and was electrocuted at these apartments. DISCHARGE ASSESSMENT: In today's interview, patient presents as alert and oriented, is apologetic about his statements of [facility], "Well whoever told me about that stuff, I am sorry that I got so mad about it. [facility] didn't deserve that." Patient is reporting the need to return to work, states that his plan are to search for different housing. His primary nurse advocated for his discharged today, reporting to me that patient has had two days of no behavioral issues and no threats or planning towards [facility]. He states that his short term goals were to get groceries today. He denies depression, states he has some anxiety with regards to being able to find employment. He denies and is not observed with //TH, psychosis, jason, depression, flight of ideas, loose associations. He had improved mentation and meets criteria for discharge today. Treatment Team is in agreement. MENTAL STATUS EXAMINATION ON DISCHARGE: MENTAL STATUS EXAMINATION: This is one of multiple admissions for this 49-year-old Single, Disabled, Domiciled, male with a history of schizoaffective disorder and severe methamphetamine abuse. Speech: Is . In today's interview, patient is cordial, amenable and polite. He is vastly improved from yesterday's interview Speech: Is fluid, normal rate, tone and volume Language skills are intact Thought processes including: linear, reality based and goal oriented. Thought content: denies depression and anxiety. denies suicidal or homicidal ideation, planning or intent. Abstract reasoning, and computation: fair Description of associations: denies, none observed Description of abnormal or psychotic thoughts: denies, none observed Judgment: fair Insight: fair Orientation: alert and oriented to person, place Recent and remote memory: mildly intact Attention span and concentration: fair Language: expansive Fund of knowledge: average Mood: Euthymic Affect: Reactive MEDICATIONS ON DISCHARGE: See Medication Management PLAN/FOLLOWUP ARRANGEMENTS: Patient is going to [facility] The amount of time spent in the coordination of care for this patient was approximately 25 minutes. Vital Signs/I&Os Vital Signs Date Time Temp Pulse Resp B/P (MAP) Pulse Ox O2 Delivery O2 Flow Rate FiO2 02/29/20 06:34 98.1 62 95 115/57 (76) 95 Room Air Laboratory Data Microbiology Microbiology 02/25/20 Respiratory Virus Panel (PCR) ([facility]) - Final, Complete Medications Scheduled Paliperidone (Paliperidone ER) 3 Mg Tab.er.24, 3 MG PO QHS for psychosis, #7 Pantoprazole Sodium (Protonix) 40 Mg Tablet.dr, 40 MG PO DAILY for gerd, #7 Allergies Coded Allergies: No Known Allergies (Unverified , 06/30/19) CARTER PEREZ NP Feb 29, 2020 13:16
== END 2020-02-29 14:15 | disposition home or self-care (01) | DRG 751 ==
LOC: M ED 15:11 → M ED INP 15:12 → M PSY 02-25 11:03
PROVIDERS: ADMIT Psychiatry & Neurology Psychiatry; ATTEND Psychiatry & Neurology Psychiatry
DX: F29 Unspecified psychosis not due to a substance or known physiological condition (principal); F15.20 Other stimulant dependence, uncomplicated; F20.9 Schizophrenia, unspecified; F12.10 Cannabis abuse, uncomplicated

== ENCOUNTER 2020-10-30 04:29 | Emergency (ER) | payer MEDICAID, OTHER, SELFPAY ==
[~2020-10-30] VITALS: Ht 180.3 cm; Wt 79.5 kg
[~2020-10-30 04:29] MED LIST changes: +OLAN1TAB16 PO; -OLAN5TAB PO; +PROT1TAB2 PO; -VITA-122 PO; +VITA-168 PO
--- NOTE | 2020-10-30 10:18 | REP ---
INDICATION: fell COMPARISON: None. TECHNIQUE: Limited two views of the right knee FINDINGS: Two given views demonstrate no obvious acute fracture or dislocation. No subcutaneous emphysema or foreign body. IMPRESSION: Limited examination. No obvious acute fracture or dislocation. <Electronically signed by Marquez Borrero > 10/30/20 1014
--- NOTE | 2020-10-30 10:19 | REP ---
INDICATION: fell Nontraumatic hip pain. COMPARISON: None. TECHNIQUE: Frontal view of the pelvis with neutral view of the right hip. FINDINGS: There is no evidence for acute fracture or dislocation. Symmetric mild degenerative changes to the bilateral hip joints includes increased sclerosis and spurring along the acetabula with mild joint space narrowing. IMPRESSION: No obvious acute fracture or dislocation. <Electronically signed by Marquez Borrero > 10/30/20 1016
--- NOTE | 2020-10-30 10:21 | REP ---
INDICATION: fell COMPARISON: None. TECHNIQUE: AP lateral views right ankle FINDINGS: Age-related changes and mild lateral swelling. No obvious acute fracture or dislocation. No subcutaneous emphysema or foreign body. IMPRESSION: Mild lateral swelling. No acute fracture or dislocation. <Electronically signed by Marquez Borrero > 10/30/20 1018
--- NOTE | 2020-10-30 12:55 | REP ---
INDICATION: fell. COMPARISON: None. TECHNIQUE: CT brain performed in the axial plane. Coronal reconstruction images are performed. FINDINGS: The ventricles are normal in size and position.. There is no midline shift or mass effect. Amin-white differentiation is well maintained. There is no acute intracranial hemorrhage or extra-axial fluid collection. Bone window examination is unremarkable. The visualized mastoid air cells are clear. There is extensive mucosal thickening in the ethmoid and maxillary sinuses bilaterally. IMPRESSION: No acute intracranial abnormalities. A preliminary report was provided by [facility] at the time of the exam. <Electronically signed by Denilson Amin > 10/30/20 [id number]
--- NOTE | 2020-10-30 13:00 | REP ---
INDICATION: fell. COMPARISON: None. TECHNIQUE: CT cervical spine performed in the axial plane, with sagittal and coronal reconstruction images performed. FINDINGS: There is no acute compression fracture or malalignment. There is no prevertebral soft tissue swelling. There is moderate spurring and disc space narrowing at C5-6 and C6-7. There is moderate to severe bilateral foraminal narrowing at both of these levels. There is moderate spinal stenosis at C5-6 and mild stenosis at C6-7. There is normal cervical lordosis. There is no abnormal density in the spinal canal. IMPRESSION: No evidence of acute fracture or dislocation.Moderate degenerative changes C5-6 and C6-7 as discussed above. A preliminary report was provided by [facility] at the time of the exam. <Electronically signed by Denilson Amin > 10/30/20 [id number]
[2020-10-30 13:02] VITALS: BP 140/68
== END 2020-10-30 13:04 | disposition home or self-care (01) ==
LOC: M ED 04:29
DX: S00.83XA Contusion of other part of head, initial encounter (principal); S93.411A Sprain of calcaneofibular ligament of right ankle, initial encounter; S80.811A Abrasion, right lower leg, initial encounter; W17.89XA Other fall from one level to another, initial encounter; Y92.89 Other specified places as the place of occurrence of the external cause; Y93.89 Activity, other specified; Y99.0 Civilian activity done for income or pay; B19.20 Unspecified viral hepatitis C without hepatic coma; K21.9 Gastro-esophageal reflux disease without esophagitis; F15.10 Other stimulant abuse, uncomplicated; F10.10 Alcohol abuse, uncomplicated; F17.210 Nicotine dependence, cigarettes, uncomplicated

== ENCOUNTER 2022-05-06 10:39 | Emergency (ER) | payer MEDICAID ==
[~2022-05-06] VITALS: Ht 180.3 cm; Wt 83.7 kg
[~2022-05-06 10:39] MED LIST changes: -OMEP-221 PO; +OMEP40CA5 PO
[2022-05-06 10:40] VITALS: BP 124/72
[2022-05-06] MEDS ORDERED: BACT800T5 PO (12:51)
== END 2022-05-06 13:01 | disposition home or self-care (01) ==
LOC: M ED 10:39
DX: R21 Rash and other nonspecific skin eruption (principal); R51.9 Headache, unspecified; K21.9 Gastro-esophageal reflux disease without esophagitis; B18.2 Chronic viral hepatitis C; F10.10 Alcohol abuse, uncomplicated; F41.9 Anxiety disorder, unspecified; F32.A Depression, unspecified; F29 Unspecified psychosis not due to a substance or known physiological condition; F19.10 Other psychoactive substance abuse, uncomplicated

== ENCOUNTER 2022-06-23 12:48 | Inpatient (IN) | payer MEDICAID ==
[~2022-06-23] VITALS: Ht 180.3 cm; Wt 81.8 kg
[2022-06-23] MEDS ORDERED: MIDAZOLAM INJ 2MG/2ML VIAL As Ordered ONE (14:25)
[2022-06-23] MEDS ORDERED: diphenhydrAMINE 50MG/ML VIAL IM ONE (14:25)
[2022-06-23] MEDS ORDERED: MIDAZOLAM INJ 2MG/2ML VIAL IM ONE (14:25)
[2022-06-23] MEDS ORDERED: HALOPERIDOL 5MG/ML 1ML VIAL IM ONE (14:25)
[2022-06-23 14:48] LABS: HEMATOCRIT 41.8 % (42.0-52.0); HEMOGLOBIN 14.4 g/dl (13.5-17.5); MEAN CORPUSCULAR HEMOGLOBIN 29.4 pg (27.0-33.0); MEAN CORPUSCULAR HGB CONC 34.4 g/dl (32.0-36.5); MEAN CORPUSCULAR VOLUME 85.5 fl (80.0-96.0); PLATELET COUNT, AUTOMATED 273 10^3/uL (150-450); RED BLOOD COUNT 4.89 10^6/uL (4.30-6.10); WHITE BLOOD COUNT 13.1 10^3/uL (4.0-10.0)
[2022-06-23 15:23] LABS: ETHYL ALCOHOL (ETHANOL) < 0.003 % (0.000-0.010)
[2022-06-23 15:24] LABS: SALICYLATE LEVEL < 3.0 MG/DL (<30)
[2022-06-23 15:25] LABS: ACETAMINOPHEN LEVEL < 2.0 UG/ML (10.0-20.0); ALBUMIN 3.9 G/DL (3.2-5.2); ALKALINE PHOSPHATASE 70 U/L (46-116); ALT/SGPT 83 U/L (7.0-40); AST/SGOT 46 U/L (<34); BILIRUBIN,DIRECT 0.4 MG/DL (<0.4); BILIRUBIN,TOTAL 0.9 MG/DL (0.3-1.2); BLOOD UREA NITROGEN 16 MG/DL (9-23); CALCIUM LEVEL 9.8 MG/DL (8.5-10.1); CARBON DIOXIDE LEVEL 25 MMOL/L (20-31); CHLORIDE LEVEL 105 MMOL/L (98-107); CREATININE FOR GFR 0.81 MG/DL (0.70-1.30); GLOMERULAR FILTRATION RATE > 60.0 (>56); GLUCOSE, FASTING 92 MG/DL (60-100); SODIUM LEVEL 139 MMOL/L (136-145); TOTAL PROTEIN 7.3 G/DL (5.7-8.2)
[2022-06-23 15:26] LABS: THYROID STIMULATING HORMONE 0.557 uIU/ML (0.55-4.78)
[2022-06-23] MEDS ORDERED: OLANZapine ORAL DISINTEGRATING TAB 5MG PO PRN (18:25)
[2022-06-23] MEDS ORDERED: LORazepam 1 MG TAB PO PRN (18:25)
[2022-06-23] MEDS ORDERED: IBUPROFEN 400MG TAB PO PRN (18:25)
[2022-06-23] MEDS ORDERED: MOM 30ML SUSPENSION UDC PO PRN (18:25)
[2022-06-23] MEDS ORDERED: LORazepam 2 MG TAB PO PRN (18:25)
[2022-06-23] MEDS ORDERED: traZODone 50 MG TAB PO PRN (18:25)
[2022-06-23] MEDS ORDERED: MAALOX 30 ML SUSP *UDC PO PRN (18:25)
[2022-06-23] MEDS ORDERED: ACETAMINOPHEN TAB 650MG DOSE (2X325MG) PO PRN (18:25)
[2022-06-23] MEDS: THIAMINE 100 MG TAB PO SCH (21:00)
[2022-06-23] MEDS ORDERED: HOME MED LIST COMPLETE! XX SCH (21:40)
[2022-06-24] MEDS: MULTIVITAMINS/MINERALS THERAP 1 TAB PO SCH (08:50)
[2022-06-24] MEDS: THIAMINE 100 MG TAB PO SCH ×2 (08:50→21:49)
[2022-06-24] MEDS: FOLIC ACID 1MG TAB PO SCH (08:50)
[2022-06-24] MEDS: NICOTINE 21MG/24HR 1 EA TRANSDERMAL TD SCH (08:50)
[2022-06-24] MEDS: PALIPERIDONE 3MG ER TAB (INVEGA) PO SCH (11:31)
[2022-06-24] MEDS: MUPIROCIN 2% OINT 22 GM TUBE TOP SCH ×2 (13:59→21:50)
[2022-06-24 15:39] VITALS: BP 106/55
[2022-06-24 16:09] VITALS: BP 106/55
[2022-06-24 23:37] VITALS: BP 107/59
[2022-06-25 06:36] VITALS: BP 111/63
[2022-06-25] MEDS: PALIPERIDONE 3MG ER TAB (INVEGA) PO SCH (08:06)
[2022-06-25] MEDS: MULTIVITAMINS/MINERALS THERAP 1 TAB PO SCH (08:06)
[2022-06-25] MEDS: THIAMINE 100 MG TAB PO SCH ×2 (08:07→20:48)
[2022-06-25] MEDS: FOLIC ACID 1MG TAB PO SCH (08:07)
[2022-06-25] MEDS: MUPIROCIN 2% OINT 22 GM TUBE TOP SCH ×2 (08:07→20:50)
[2022-06-25] MEDS: NICOTINE 21MG/24HR 1 EA TRANSDERMAL TD SCH (08:08)
[2022-06-25 08:24] VITALS: BP 111/63
[2022-06-25 08:45] LABS: CHOLESTEROL RISK RATIO 4.4 (<5); HDL CHOLESTEROL 34.5 MG/DL (>40); LDL CHOLESTEROL 90.3 MG/DL (<100); NON-HDL-C 117.5 MG/DL
[2022-06-25 16:24] VITALS: BP 126/59
[2022-06-25 16:30] VITALS: BP 126/59
[2022-06-25] MEDS: PALIPERIDONE 6MG ER TAB (INVEGA) PO SCH (20:48)
[2022-06-26 05:54] VITALS: BP 107/61
[2022-06-26] MEDS: NICOTINE 21MG/24HR 1 EA TRANSDERMAL TD SCH (09:00)
[2022-06-26] MEDS: MUPIROCIN 2% OINT 22 GM TUBE TOP SCH ×2 (09:42→21:00)
[2022-06-26 18:17] VITALS: BP 114/64
[2022-06-26] MEDS: PALIPERIDONE 6MG ER TAB (INVEGA) PO SCH (21:40)
[2022-06-27 07:18] VITALS: BP 109/60
[2022-06-27] MEDS ORDERED: NICO21PAT TD (07:32)
[2022-06-27] MEDS ORDERED: PALI1TAB3 PO (07:32)
[2022-06-27] MEDS: NICOTINE 21MG/24HR 1 EA TRANSDERMAL TD SCH (08:42)
[2022-06-27] MEDS: MUPIROCIN 2% OINT 22 GM TUBE TOP SCH (08:42)
== END 2022-06-27 12:40 | disposition home or self-care (01) | DRG 751 ==
LOC: M ED 12:48 → M ED INP 18:23 → M PSY 21:46
PROVIDERS: ADMIT Student in an Organized Health Care Education/Training Program; ATTEND Student in an Organized Health Care Education/Training Program
DX: F29 Unspecified psychosis not due to a substance or known physiological condition (principal); F15.20 Other stimulant dependence, uncomplicated; F20.9 Schizophrenia, unspecified; F12.10 Cannabis abuse, uncomplicated; F17.210 Nicotine dependence, cigarettes, uncomplicated; Z20.822 Contact with and (suspected) exposure to COVID-19; Z91.51 Personal history of suicidal behavior

== ENCOUNTER 2024-01-30 19:07 | Inpatient (IN) | payer MEDICAID, OTHER ==
[~2024-01-30] VITALS: Ht 180.3 cm; Wt 81.1 kg
[~2024-01-30 19:07] MED LIST changes: +NICO21PAT TD; +PALI1TAB3 PO; +RISP-105 PO; -RISP-8 PO
[2024-01-30 19:50] LABS: HEMATOCRIT 44.6 % (42.0-52.0); MEAN CORPUSCULAR HEMOGLOBIN 29.2 pg (27.0-33.0); MEAN CORPUSCULAR HGB CONC 33.6 g/dl (32.0-36.5); MEAN CORPUSCULAR VOLUME 86.9 fl (80.0-96.0); PLATELET COUNT, AUTOMATED 273 10^3/uL (150-450); RED BLOOD COUNT 5.13 10^6/uL (4.30-6.10); WHITE BLOOD COUNT 14.1 10^3/uL (4.0-10.0)
[2024-01-30 20:14] LABS: ETHYL ALCOHOL (ETHANOL) < 0.003 % (0.000-0.010)
[2024-01-30 20:16] LABS: ALBUMIN 4.4 G/DL (3.2-5.2); ALKALINE PHOSPHATASE 74 U/L (40-129); ALT/SGPT 19 U/L (7.0-40); AST/SGOT 29 U/L (<34); BILIRUBIN,DIRECT 0.4 MG/DL (<0.4); BILIRUBIN,TOTAL 1.4 MG/DL (0.3-1.2); BLOOD UREA NITROGEN 24 MG/DL (9-23); CALCIUM LEVEL 10.4 MG/DL (8.5-10.1); CARBON DIOXIDE LEVEL 26 MMOL/L (20-31); CHLORIDE LEVEL 104 MMOL/L (98-107); CREATININE FOR GFR 0.83 MG/DL (0.70-1.30); GLOMERULAR FILTRATION RATE > 60.0 (>56); GLUCOSE, FASTING 88 MG/DL (60-100); POTASSIUM SERUM 3.6 MMOL/L (3.5-5.1); SALICYLATE LEVEL < 3.0 MG/DL (<30); SODIUM LEVEL 141 MMOL/L (136-145)
[2024-01-30 20:18] LABS: THYROID STIMULATING HORMONE 0.898 uIU/ML (0.55-4.78)
[2024-01-30] MEDS ORDERED: HOME MED LIST COMPLETE! XX SCH (20:50)
[2024-01-30 21:10] LABS: BARBITURATES URINE NEGATIVE (NEGATIVE); BENZODIAZEPINES URINE NEGATIVE (NEGATIVE); CANNABINOIDS URINE NEGATIVE (NEGATIVE); COCAINE METABOLITE URINE NEGATIVE (NEGATIVE); METHADONE URINE NEGATIVE (NEGATIVE); OPIATES URINE NEGATIVE (NEGATIVE); PHENCYCLIDINE URINE NEGATIVE (NEGATIVE)
[2024-01-30 21:18] LABS: AMPHETAMINES LEVEL URINE POSITIVE (NEGATIVE)
[2024-01-31] MEDS ORDERED: MAALOX 30 ML SUSP *UDC PO PRN (00:40)
[2024-01-31] MEDS ORDERED: ACETAMINOPHEN 325 MG TAB PO PRN (00:40)
[2024-01-31] MEDS ORDERED: MOM 30ML SUSPENSION UDC PO PRN (00:40)
[2024-01-31] MEDS ORDERED: diphenhydrAMINE 25MG CAP PO PRN (00:40)
[2024-01-31] MEDS ORDERED: traZODone 50 MG TAB PO PRN (00:40)
[2024-01-31 01:18] VITALS: BP 141/84; TEMP 97.6; O2SAT 98
[2024-01-31 06:46] VITALS: BP 110/59; TEMP 97.1; O2SAT 99
[2024-01-31] MEDS: IBUPROFEN 400MG TAB PO PRN (13:40)
[2024-01-31 16:11] VITALS: BP 105/55; TEMP 99; O2SAT 97
[2024-02-01 06:26] VITALS: BP 102/72; TEMP 97.2; O2SAT 98
[2024-02-01 16:43] VITALS: BP 125/74; TEMP 97.9; O2SAT 99
[2024-02-01] MEDS: PALIPERIDONE 3MG ER TAB (INVEGA) PO SCH (21:09)
[2024-02-02 06:27] VITALS: BP 104/65; TEMP 97.4; O2SAT 98
[2024-02-03 06:26] VITALS: BP 127/76; TEMP 98; O2SAT 98
[2024-02-03 15:38] VITALS: BP 133/82; TEMP 98; O2SAT 99
[2024-02-04 06:58] VITALS: BP 148/75; TEMP 98; O2SAT 96
== END 2024-02-04 12:04 | disposition home or self-care (01) | DRG 751 ==
LOC: M ED 19:07 → EEVIPCON 01-31 00:40 → M ED INP 01-31 00:40 → M PSY 01-31 01:19
PROVIDERS: ADMIT Psychiatry & Neurology Psychiatry; ATTEND Psychiatry & Neurology Psychiatry
DX: F29 Unspecified psychosis not due to a substance or known physiological condition (principal); F25.9 Schizoaffective disorder, unspecified; F15.159 Other stimulant abuse with stimulant-induced psychotic disorder, unspecified; K21.9 Gastro-esophageal reflux disease without esophagitis; Z59.00 Homelessness unspecified

== ENCOUNTER 2024-02-19 03:54 | Inpatient (IN) | payer MEDICAID, OTHER ==
[~2024-02-19] VITALS: Ht 180.3 cm; Wt 72.7 kg
[2024-02-19 04:53] LABS: HEMOGLOBIN 14.3 g/dl (13.5-17.5); MEAN CORPUSCULAR HEMOGLOBIN 28.9 pg (27.0-33.0); MEAN CORPUSCULAR HGB CONC 33.3 g/dl (32.0-36.5); MEAN CORPUSCULAR VOLUME 86.9 fl (80.0-96.0); PLATELET COUNT, AUTOMATED 247 10^3/uL (150-450); RED BLOOD COUNT 4.95 10^6/uL (4.30-6.10); WHITE BLOOD COUNT 10.4 10^3/uL (4.0-10.0)
[2024-02-19 05:07] LABS: BARBITURATES URINE NEGATIVE (NEGATIVE); BENZODIAZEPINES URINE NEGATIVE (NEGATIVE); CANNABINOIDS URINE NEGATIVE (NEGATIVE); COCAINE METABOLITE URINE NEGATIVE (NEGATIVE); METHADONE URINE NEGATIVE (NEGATIVE); OPIATES URINE NEGATIVE (NEGATIVE); PHENCYCLIDINE URINE NEGATIVE (NEGATIVE)
[2024-02-19 05:08] LABS: AMPHETAMINES LEVEL URINE POSITIVE (NEGATIVE)
[2024-02-19 05:09] LABS: ETHYL ALCOHOL (ETHANOL) < 0.003 % (0.000-0.010)
[2024-02-19 05:11] LABS: ALBUMIN 3.9 G/DL (3.2-5.2); ALKALINE PHOSPHATASE 53 U/L (40-129); ALT/SGPT 29 U/L (7.0-40); AST/SGOT 26 U/L (<34); BILIRUBIN,DIRECT 0.3 MG/DL (<0.4); BILIRUBIN,TOTAL 0.7 MG/DL (0.3-1.2); BLOOD UREA NITROGEN 25 MG/DL (9-23); CALCIUM LEVEL 9.8 MG/DL (8.5-10.1); CARBON DIOXIDE LEVEL 29 MMOL/L (20-31); CHLORIDE LEVEL 105 MMOL/L (98-107); CREATININE FOR GFR 0.88 MG/DL (0.70-1.30); GLOMERULAR FILTRATION RATE > 60.0 (>56); GLUCOSE, FASTING 102 MG/DL (60-100); POTASSIUM SERUM 3.8 MMOL/L (3.5-5.1); SALICYLATE LEVEL < 3.0 MG/DL (<30); SODIUM LEVEL 141 MMOL/L (136-145); TOTAL PROTEIN 6.9 G/DL (5.7-8.2)
[2024-02-19 05:13] LABS: THYROID STIMULATING HORMONE 0.847 uIU/ML (0.55-4.78)
[2024-02-19] MEDS ORDERED: HOME MED LIST COMPLETE! XX SCH (06:00)
[2024-02-19] MEDS ORDERED: traZODone 50 MG TAB PO PRN (13:25)
[2024-02-19] MEDS ORDERED: diphenhydrAMINE 25MG CAP PO PRN (13:25)
[2024-02-19] MEDS ORDERED: MOM 30ML SUSPENSION UDC PO PRN (13:25)
[2024-02-19 17:07] VITALS: BP 130/62; TEMP 96.9; O2SAT 97
[2024-02-20 06:28] VITALS: BP 124/69; TEMP 97.1; O2SAT 97
[2024-02-20 16:05] VITALS: BP 116/64; TEMP 97.3; O2SAT 97
[2024-02-21 06:10] VITALS: BP 141/76; TEMP 98; O2SAT 98
[2024-02-21] MEDS: ACETAMINOPHEN 325 MG TAB PO PRN (08:46)
[2024-02-21] MEDS: IBUPROFEN 400MG TAB PO PRN (11:12)
[2024-02-21] MEDS: OLANZapine 5 MG TAB PO SCH (14:25)
[2024-02-21 16:09] VITALS: BP 122/62; TEMP 97.2; O2SAT 98
[2024-02-22 06:17] VITALS: BP 121/69; TEMP 97.4; O2SAT 99
[2024-02-22] MEDS ORDERED: OLANZapine ORAL DISINTEGRATING TAB 5MG PO PRN (10:20)
[2024-02-22 15:28] VITALS: BP 116/63; TEMP 98.2; O2SAT 98
[2024-02-23 06:24] VITALS: BP 119/64; TEMP 97.4; O2SAT 97
[2024-02-23 16:39] VITALS: BP 139/88; TEMP 97.5; O2SAT 100
[2024-02-24 06:34] VITALS: BP 147/69; TEMP 97.3; O2SAT 98
[2024-02-24] MEDS ORDERED: HOME MED LIST COMPLETE! XX SCH (07:25)
[2024-02-24 14:58] VITALS: BP 144/95; TEMP 97.7; O2SAT 98
[2024-02-24] MEDS: OLANZapine 10 MG TAB PO SCH (20:04)
[2024-02-24] MEDS: MAALOX 30 ML SUSP *UDC PO PRN (20:48)
[2024-02-25 06:27] VITALS: BP 126/73; TEMP 97.2; O2SAT 98
[2024-02-25] MEDS: OLANZapine 5 MG TAB PO SCH (08:02)
[2024-02-25 15:15] VITALS: BP 110/69; TEMP 97.5; O2SAT 99
[2024-02-26 06:11] VITALS: BP 134/74; TEMP 97.5; O2SAT 98
[2024-02-26] MEDS: OLANZapine 5 MG TAB PO SCH (08:22)
[2024-02-26] MEDS ORDERED: OLAN1TAB20 PO (09:20)
[2024-02-26] MEDS ORDERED: OLAN1TAB16 PO (09:20)
== END 2024-02-26 12:19 | disposition home or self-care (01) | DRG 750 ==
LOC: M ED 03:54 → M ED INP 13:24 → M PSY 17:06
PROVIDERS: ADMIT Psychiatry & Neurology Psychiatry; ATTEND Psychiatry & Neurology Psychiatry
DX: F20.9 Schizophrenia, unspecified (principal); Z59.00 Homelessness unspecified; R45.851 Suicidal ideations; F60.2 Antisocial personality disorder; F17.200 Nicotine dependence, unspecified, uncomplicated; K21.9 Gastro-esophageal reflux disease without esophagitis; F41.9 Anxiety disorder, unspecified; Z90.49 Acquired absence of other specified parts of digestive tract; Z76.5 Malingerer [conscious simulation]; Z79.899 Other long term (current) drug therapy; Z91.51 Personal history of suicidal behavior

== ENCOUNTER 2024-04-25 15:52 | Emergency (ER) | payer MEDICAID, OTHER, SELFPAY ==
[~2024-04-25] VITALS: Ht 180.3 cm; Wt 89.8 kg
[~2024-04-25 15:52] MED LIST changes: +OLAN1TAB20 PO
[2024-04-25] MEDS ORDERED: AMOX875T PO (17:44)
[2024-04-25 17:49] VITALS: BP 135/87; TEMP 97.8; O2SAT 96
== END 2024-04-25 17:57 | disposition home or self-care (01) ==
LOC: M ED 15:52
DX: J02.0 Streptococcal pharyngitis (principal); K21.9 Gastro-esophageal reflux disease without esophagitis; B18.2 Chronic viral hepatitis C; F19.10 Other psychoactive substance abuse, uncomplicated; Z79.2 Long term (current) use of antibiotics; Z79.899 Other long term (current) drug therapy

== ENCOUNTER 2024-05-03 01:34 | Inpatient (IN) | payer MEDICAID ==
[~2024-05-03] VITALS: Ht 180.3 cm; Wt 85.9 kg
[~2024-05-03 01:34] MED LIST changes: +AMOX875T PO
[2024-05-03 03:06] LABS: HEMATOCRIT 40.8 % (42.0-52.0); HEMOGLOBIN 14.2 g/dl (13.5-17.5); MEAN CORPUSCULAR HGB CONC 34.8 g/dl (32.0-36.5); MEAN CORPUSCULAR VOLUME 83.4 fl (80.0-96.0); PLATELET COUNT, AUTOMATED 237 10^3/uL (150-450); RED BLOOD COUNT 4.89 10^6/uL (4.30-6.10); WHITE BLOOD COUNT 16.6 10^3/uL (4.0-10.0)
[2024-05-03 03:32] LABS: BARBITURATES URINE NEGATIVE (NEGATIVE); BENZODIAZEPINES URINE NEGATIVE (NEGATIVE); COCAINE METABOLITE URINE NEGATIVE (NEGATIVE); METHADONE URINE NEGATIVE (NEGATIVE); OPIATES URINE NEGATIVE (NEGATIVE); PHENCYCLIDINE URINE NEGATIVE (NEGATIVE)
[2024-05-03 03:35] LABS: AMPHETAMINES LEVEL URINE POSITIVE (NEGATIVE); CANNABINOIDS URINE POSITIVE (NEGATIVE); ETHYL ALCOHOL (ETHANOL) < 0.003 % (0.000-0.010)
[2024-05-03 03:37] LABS: ALKALINE PHOSPHATASE 66 U/L (40-129); ALT/SGPT 32 U/L (7.0-40); AST/SGOT 51 U/L (<34); BILIRUBIN,DIRECT 0.6 MG/DL (<0.4); BILIRUBIN,TOTAL 2.1 MG/DL (0.3-1.2); BLOOD UREA NITROGEN 24 MG/DL (9-23); CARBON DIOXIDE LEVEL 23 MMOL/L (20-31); CHLORIDE LEVEL 100 MMOL/L (98-107); CREATININE FOR GFR 0.88 MG/DL (0.70-1.30); GLOMERULAR FILTRATION RATE > 60.0 (>56); GLUCOSE, FASTING 105 MG/DL (60-100); POTASSIUM SERUM 3.8 MMOL/L (3.5-5.1); SALICYLATE LEVEL < 3.0 MG/DL (<30); SODIUM LEVEL 135 MMOL/L (136-145); TOTAL PROTEIN 7.4 G/DL (5.7-8.2)
[2024-05-03] MEDS ORDERED: PRAZ1CAP PO (06:50)
[2024-05-03] MEDS ORDERED: AMOX875T PO (10:00)
[2024-05-03] MEDS ORDERED: ATOM40CA2 PO (10:00)
[2024-05-03] MEDS ORDERED: HOME MED LIST COMPLETE! XX SCH (10:00)
[2024-05-03] MEDS ORDERED: traZODone 50 MG TAB PO PRN (17:50)
[2024-05-03] MEDS ORDERED: IBUPROFEN 400MG TAB PO PRN (17:50)
[2024-05-03] MEDS ORDERED: MOM 30ML SUSPENSION UDC PO PRN (17:50)
[2024-05-03] MEDS ORDERED: diphenhydrAMINE 25MG CAP PO PRN (17:50)
[2024-05-03] MEDS: MAALOX 30 ML SUSP *UDC PO PRN (20:28)
[2024-05-03 21:17] VITALS: BP 151/77; TEMP 98.4; O2SAT 100
[2024-05-04 06:39] VITALS: BP 115/64; TEMP 97.9; O2SAT 98
[2024-05-04 13:44] LABS: BASO # 0.1 10^3/uL (0.0-0.2); BASO % 0.5 % (0.0-1.0); EOS # 0.3 10^3/uL (0.0-0.5); EOS % 2.7 % (0.0-3.0); HEMATOCRIT 40.3 % (42.0-52.0); HEMOGLOBIN 13.5 g/dl (13.5-17.5); LYMPH # 4.4 10^3/uL (1.5-5.0); LYMPH % 43.1 % (24.0-44.0); MEAN CORPUSCULAR HEMOGLOBIN 28.5 pg (27.0-33.0); MEAN CORPUSCULAR HGB CONC 33.5 g/dl (32.0-36.5); MEAN CORPUSCULAR VOLUME 85.2 fl (80.0-96.0); MONO # 0.7 10^3/uL (0.0-0.8); MONO % 7.2 % (2.0-8.0); NEUTROPHILS # 4.7 10^3/uL (1.5-8.5); NEUTROPHILS % 46.3 % (36.0-66.0); PLATELET COUNT, AUTOMATED 209 10^3/uL (150-450); RED BLOOD COUNT 4.73 10^6/uL (4.30-6.10); WHITE BLOOD COUNT 10.2 10^3/uL (4.0-10.0)
[2024-05-04 13:50] LABS: ERYTHROCYTE SEDIMENTATION RATE 36 mm/hr (0-20)
[2024-05-04] MEDS: IBUPROFEN 400MG TAB PO ONE (13:57)
[2024-05-04 14:18] LABS: C REACTIVE PROTEIN QUANTITATIV 6.63 MG/DL (<1.0)
[2024-05-04 14:30] LABS: PROCALCITONIN 0.33 ng/ml
[2024-05-04 15:20] VITALS: BP 115/58; TEMP 97; O2SAT 96
[2024-05-04] MEDS: LIDOCAINE 5% OINT 30GM TUBE TOP SCH (16:00)
[2024-05-04] MEDS: traZODone 50 MG TAB PO SCH (21:00)
[2024-05-04] MEDS: PRAZOSIN 1 MG CAP PO SCH (21:00)
[2024-05-05 06:33] VITALS: BP 124/53; TEMP 97.2; O2SAT 98
[2024-05-05 07:59] LABS: CHOLESTEROL LEVEL 161 MG/DL (<200); HDL CHOLESTEROL 40.2 MG/DL (>40); LDL CHOLESTEROL 108.8 MG/DL (<100); NON-HDL-C 120.8 MG/DL; TRIGLYCERIDES LEVEL 60 MG/DL (<150)
[2024-05-05 08:19] LABS: HEPATITIS B SURFACE ANTIGEN NEGATIVE (NEGATIVE)
[2024-05-05 08:40] LABS: HEPATITIS B CORE ANTIBODY IGM NEGATIVE (NEGATIVE)
[2024-05-05 08:59] LABS: HEPATITIS C VIRUS ABY INDEX > 11.00 INDEX (<0.8)
[2024-05-05] MEDS: ATOMOXETINE HCL 40 MG CAP (STRATTERA) PO SCH (09:13)
[2024-05-05 16:23] VITALS: BP 124/72; TEMP 96.5; O2SAT 98
[2024-05-06 06:36] VITALS: BP 128/62; TEMP 97.4; O2SAT 99
[2024-05-06 11:47] VITALS: BP 128/62; TEMP 97.4; O2SAT 99
[2024-05-06] MEDS: PANTOPRAZOLE 40MG TAB (PROTONIX) PO SCH (12:12)
[2024-05-06 15:42] VITALS: BP 138/74; TEMP 98.1; O2SAT 98
[2024-05-06 15:48] LABS: ANA SCREEN, IFA NEGATIVE (NEGATIVE)
[2024-05-06] MEDS: hydrOXYzine 50 MG TAB PO PRN (21:14)
[2024-05-07 06:48] VITALS: BP 124/69; TEMP 97.5; O2SAT 96
[2024-05-07 15:51] VITALS: BP 129/76; TEMP 97.2; O2SAT 98
[2024-05-08 06:50] VITALS: BP 135/57; TEMP 97; O2SAT 98
[2024-05-08 06:53] VITALS: BP 127/77; TEMP 97.2; O2SAT 98
[2024-05-08 15:19] VITALS: BP 122/81; TEMP 97.4; O2SAT 98
[2024-05-08] MEDS: ACETAMINOPHEN 325 MG TAB PO PRN (15:55)
[2024-05-08 20:14] VITALS: BP 115/73
[2024-05-09] MEDS ORDERED: TRAZ-252 PO (03:18)
[2024-05-09] MEDS ORDERED: HYDR50TA70 PO (03:18)
[2024-05-09] MEDS ORDERED: PANT40TA29 PO (03:18)
[2024-05-09] MEDS ORDERED: ABIL1TAB11 PO (03:18)
[2024-05-09] MEDS ORDERED: PRAZ1CAP PO (03:18)
[2024-05-09 06:31] VITALS: BP 118/69; TEMP 98.1; O2SAT 100
[2024-05-09 18:00] LABS: HCV RNA QUANTITATION <15 NOT DETECTED IU/mL (NOT DETECTED); HCV RNA log10 <1.18 NOT DETECTED Log IU/mL (NOT DETECTED)
== END 2024-05-09 10:50 | disposition home or self-care (01) | DRG 750 ==
LOC: M ED 01:34 → M ED INP 17:49 → M PSY 20:14
PROVIDERS: ADMIT Student in an Organized Health Care Education/Training Program; ATTEND Student in an Organized Health Care Education/Training Program
DX: F25.0 Schizoaffective disorder, bipolar type (principal); M25.571 Pain in right ankle and joints of right foot; F41.9 Anxiety disorder, unspecified; F60.2 Antisocial personality disorder; K21.9 Gastro-esophageal reflux disease without esophagitis; Z59.00 Homelessness unspecified; Z56.0 Unemployment, unspecified; F17.200 Nicotine dependence, unspecified, uncomplicated; F19.90 Other psychoactive substance use, unspecified, uncomplicated; R94.5 Abnormal results of liver function studies; Z71.51 Drug abuse counseling and surveillance of drug abuser; Z90.49 Acquired absence of other specified parts of digestive tract

== ENCOUNTER 2024-05-17 04:11 | Emergency (ER) | payer MEDICAID, OTHER, SELFPAY ==
[~2024-05-17] VITALS: Ht 180.3 cm; Wt 85.7 kg
[~2024-05-17 04:11] MED LIST changes: +ATOM40CA2 PO; +PANT40TA29 PO; +PRAZ1CAP PO; +TRAZ-252 PO
[2024-05-17 07:44] VITALS: BP 123/80; TEMP 97; O2SAT 98
== END 2024-05-17 08:19 | disposition home or self-care (01) ==
LOC: M ED 04:11
DX: F43.0 Acute stress reaction (principal); B18.2 Chronic viral hepatitis C; F17.210 Nicotine dependence, cigarettes, uncomplicated; F10.10 Alcohol abuse, uncomplicated; Z79.899 Other long term (current) drug therapy

== ENCOUNTER 2024-09-22 21:06 | Emergency (ER) | payer MEDICAID, OTHER ==
[~2024-09-22] VITALS: Ht 180.3 cm; Wt 70.2 kg
[~2024-09-22 21:06] MED LIST changes: +ARIP1TAB6 PO; +PANT-23 PO
[2024-09-22 21:45] LABS: BASO # 0.1 10^3/uL (0.0-0.2); BASO % 0.6 % (0.0-1.0); EOS # 0.1 10^3/uL (0.0-0.5); EOS % 0.9 % (0.0-3.0); LYMPH # 1.1 10^3/uL (1.5-5.0); LYMPH % 11.5 % (24.0-44.0); MONO # 0.8 10^3/uL (0.0-0.8); MONO % 7.7 % (2.0-8.0); NEUTROPHILS # 7.7 10^3/uL (1.5-8.5); NEUTROPHILS % 78.8 % (36.0-66.0); PLATELET COUNT, AUTOMATED 239 10^3/uL (150-450)
[2024-09-22] MEDS: NS (Normal Saline) 0.9% 1,000 ML IV ONE (21:45)
[2024-09-22] MEDS: TETANUS/DIPHTH/ACEL. PERTUSSIS 0.5 ML SYR IM.IMMUN ONE (21:46)
[2024-09-22 22:14] LABS: CK-MB VALUE MASS 47.9 NG/ML (<3.6)
[2024-09-22 22:53] LABS: ETHYL ALCOHOL (ETHANOL) 0.005 % (0.000-0.010); SALICYLATE LEVEL < 3.0 MG/DL (<30)
[2024-09-22 22:54] LABS: ALT/SGPT 50 U/L (7.0-40); AST/SGOT 118 U/L (<34); CALCIUM LEVEL 10.2 MG/DL (8.5-10.1); CARBON DIOXIDE LEVEL 18 MMOL/L (20-31); CHLORIDE LEVEL 105 MMOL/L (98-107); CREATININE FOR GFR 1.13 MG/DL (0.70-1.30); GLOMERULAR FILTRATION RATE 77.7 (>56); POTASSIUM SERUM 3.6 MMOL/L (3.5-5.1); SODIUM LEVEL 143 MMOL/L (136-145)
[2024-09-22 23:10] LABS: CPK CREATINE PHOSPHOKINASE 5114 U/L (46-171); MB/CK RELATIVE INDEX 0.93 (< OR =4)
[2024-09-22 23:20] LABS: CK-MB VALUE MASS 39.0 NG/ML (<3.6)
[2024-09-22 23:35] LABS: CPK CREATINE PHOSPHOKINASE 4263.0 U/L (46-171); MB/CK RELATIVE INDEX 0.91 (< OR =4)
[2024-09-22] MEDS: NS (Normal Saline) 0.9% 1,000 ML IV SCH (23:52)
[2024-09-23] MEDS ORDERED: MOM 30 ML SUSPENSION UDC PO PRN (00:30)
[2024-09-23] MEDS ORDERED: ACETAMINOPHEN 325 MG TAB PO PRN (00:30)
[2024-09-23] MEDS: NS (Normal Saline) 0.9% 1,000 ML IV SCH (00:49)
[2024-09-23] MEDS: NS (Normal Saline) 0.9% 1,000 ML IV ONE ×2 (01:04→02:01)
[2024-09-23 02:22] LABS: INR 1.15
[2024-09-23 02:36] LABS: C REACTIVE PROTEIN QUANTITATIV 0.67 MG/DL (<1.0)
[2024-09-23 03:13] LABS: BARBITURATES URINE NEGATIVE (NEGATIVE); BENZODIAZEPINES URINE NEGATIVE (NEGATIVE); COCAINE METABOLITE URINE NEGATIVE (NEGATIVE); METHADONE URINE NEGATIVE (NEGATIVE); OPIATES URINE NEGATIVE (NEGATIVE); PHENCYCLIDINE URINE NEGATIVE (NEGATIVE)
[2024-09-23 03:14] LABS: CANNABINOIDS URINE NEGATIVE (NEGATIVE)
[2024-09-23 03:17] LABS: AMPHETAMINES LEVEL URINE POSITIVE (NEGATIVE)
[2024-09-23 03:32] LABS: HIV 1&2 SCREEN NEGATIVE (NEGATIVE)
[2024-09-23 03:40] LABS: ABG BASE EXCESS -3.1 (-2.0-2.0); ABG HCO3 21.3 MMOL/L (22.0-26.0); ABG O2 SATURATION 98.0 % (95.0-99.0); ABG PARTIAL PRESSURE CO2 36.4 mmHg (35.0-45.0); ABG PARTIAL PRESSURE O2 109.8 mmHg (75.0-100.0); ABG STANDARD HCO3 21.9 MMOL/L. (22.0-26.0); ABG TOTAL CO2 22.5 MMOL/L (22.0-29.0); ABG pH (ARTERIAL) 7.386 UNITS (7.350-7.450)
[2024-09-23 03:51] LABS: HEP C VIRUS AB INDEX SOURCE PT > 11.0 INDEX (0.0-0.8)
[2024-09-23 03:52] LABS: HEPATITIS C VIRUS ABY INDEX > 11.00 INDEX (<0.8)
[2024-09-23 06:14] LABS: PLATELET COUNT, AUTOMATED 190 10^3/uL (150-450)
[2024-09-23 06:45] VITALS: TEMP 96.9
[2024-09-23 07:15] VITALS: BP 116/76; O2SAT 99
[2024-09-23 07:26] LABS: ALT/SGPT 41 U/L (7.0-40); AST/SGOT 93 U/L (<34); CALCIUM LEVEL 8.0 MG/DL (8.5-10.1); CARBON DIOXIDE LEVEL 24 MMOL/L (20-31); CHLORIDE LEVEL 110 MMOL/L (98-107); CPK CREATINE PHOSPHOKINASE 3032 U/L (46-171); CREATININE FOR GFR 0.74 MG/DL (0.70-1.30); GLOMERULAR FILTRATION RATE > 90.0 (>56); MAGNESIUM LEVEL 2.0 MG/DL (1.8-2.4); POTASSIUM SERUM 3.6 MMOL/L (3.5-5.1); SODIUM LEVEL 143 MMOL/L (136-145)
[2024-09-23] MEDS ORDERED: HOME MED LIST COMPLETE! XX SCH (08:00)
[2024-09-23] MEDS: OVERDOSE RESCUE KIT XX SCH (08:23)
[2024-09-23] MEDS ORDERED: ENOXAPARIN 40 MG/0.4 ML SYRINGE (J1650 PER 10MG) SC SCH (09:00)
[2024-09-25 23:57] LABS: HCV RNA QUANTITATION 384.0 IU/mL (NOT DETECTED); HCV RNA log10 2.58 Log IU/mL (NOT DETECTED)
== END 2024-09-23 08:25 | disposition home or self-care (01) ==
LOC: M ED 21:06
DX: M62.82 Rhabdomyolysis (principal); B18.2 Chronic viral hepatitis C; K21.9 Gastro-esophageal reflux disease without esophagitis; F25.9 Schizoaffective disorder, unspecified; F17.210 Nicotine dependence, cigarettes, uncomplicated; Z23 Encounter for immunization; Z79.899 Other long term (current) drug therapy

== ENCOUNTER 2024-09-29 02:30 | Emergency (ER) | payer OTHER ==
[~2024-09-29] VITALS: Ht 180.3 cm; Wt 77.3 kg
[2024-09-29 03:32] LABS: PLATELET COUNT, AUTOMATED 236 10^3/uL (150-450)
[2024-09-29 03:50] LABS: ETHYL ALCOHOL (ETHANOL) < 0.003 % (0.000-0.010)
[2024-09-29 03:52] LABS: ALT/SGPT 79 U/L (7.0-40); AST/SGOT 80 U/L (<34); CALCIUM LEVEL 9.0 MG/DL (8.5-10.1); CARBON DIOXIDE LEVEL 24 MMOL/L (20-31); CHLORIDE LEVEL 105 MMOL/L (98-107); CREATININE FOR GFR 0.77 MG/DL (0.70-1.30); GLOMERULAR FILTRATION RATE > 90.0 (>56); POTASSIUM SERUM 3.6 MMOL/L (3.5-5.1); SALICYLATE LEVEL < 3.0 MG/DL (<30); SODIUM LEVEL 141 MMOL/L (136-145)
[2024-09-29 04:46] LABS: BARBITURATES URINE NEGATIVE (NEGATIVE); BENZODIAZEPINES URINE NEGATIVE (NEGATIVE); COCAINE METABOLITE URINE NEGATIVE (NEGATIVE); METHADONE URINE NEGATIVE (NEGATIVE); OPIATES URINE NEGATIVE (NEGATIVE)
[2024-09-29 04:47] LABS: PHENCYCLIDINE URINE NEGATIVE (NEGATIVE)
[2024-09-29 04:49] LABS: AMPHETAMINES LEVEL URINE POSITIVE (NEGATIVE); CANNABINOIDS URINE POSITIVE (NEGATIVE)
[2024-09-29 07:53] VITALS: BP 127/71; TEMP 98.6; O2SAT 97
== END 2024-09-29 08:04 | disposition home or self-care (01) ==
LOC: M ED 02:30
DX: F43.0 Acute stress reaction (principal); K21.9 Gastro-esophageal reflux disease without esophagitis; B18.8 Other chronic viral hepatitis; F32.A Depression, unspecified; F19.10 Other psychoactive substance abuse, uncomplicated; F10.10 Alcohol abuse, uncomplicated

== ENCOUNTER 2024-12-04 00:16 | Inpatient (IN) | payer OTHER ==
[~2024-12-04] VITALS: Ht 180.3 cm; Wt 69.0 kg
[2024-12-04 01:19] LABS: PLATELET COUNT, AUTOMATED 351 10^3/uL (150-450)
[2024-12-04 01:47] LABS: ETHYL ALCOHOL (ETHANOL) < 0.003 % (0.000-0.010)
[2024-12-04 01:49] LABS: ALT/SGPT 16 U/L (7.0-40); AST/SGOT 18 U/L (<34); CALCIUM LEVEL 10.0 MG/DL (8.5-10.1); CARBON DIOXIDE LEVEL 29 MMOL/L (20-31); CHLORIDE LEVEL 104 MMOL/L (98-107); CREATININE FOR GFR 0.81 MG/DL (0.70-1.30); GLOMERULAR FILTRATION RATE > 90.0 (>56); POTASSIUM SERUM 3.8 MMOL/L (3.5-5.1); SALICYLATE LEVEL < 3.0 MG/DL (<30); SODIUM LEVEL 143 MMOL/L (136-145)
[2024-12-04] MEDS ORDERED: HOME MED LIST COMPLETE! XX SCH (03:00)
[2024-12-04 08:40] LABS: BARBITURATES URINE NEGATIVE (NEGATIVE); BENZODIAZEPINES URINE NEGATIVE (NEGATIVE); COCAINE METABOLITE URINE NEGATIVE (NEGATIVE); METHADONE URINE NEGATIVE (NEGATIVE); OPIATES URINE NEGATIVE (NEGATIVE); PHENCYCLIDINE URINE NEGATIVE (NEGATIVE)
[2024-12-04 08:56] LABS: AMPHETAMINES LEVEL URINE POSITIVE (NEGATIVE); CANNABINOIDS URINE POSITIVE (NEGATIVE)
[2024-12-04] MEDS ORDERED: LORazepam 1 MG TAB PO PRN (11:15)
[2024-12-04] MEDS ORDERED: HALOPERIDOL 5 MG TAB PO PRN (11:15)
[2024-12-04] MEDS ORDERED: OLANZapine 5 MG TAB PO PRN (11:15)
[2024-12-04] MEDS ORDERED: MAALOX 30 ML SUSP *UDC PO PRN (11:15)
[2024-12-04] MEDS ORDERED: MOM 30 ML SUSPENSION UDC PO PRN (11:15)
[2024-12-04] MEDS: NICOTINE 14 MG/24 HR TRANSDERMAL TD SCH (12:55)
[2024-12-04 13:19] VITALS: BP 104/58; TEMP 97.2; O2SAT 98
[2024-12-05 06:35] VITALS: BP 103/53; TEMP 97.2; O2SAT 99
[2024-12-05] MEDS: buPROPion **XL** 150 MG TABLET PO SCH (09:42)
[2024-12-05 15:30] VITALS: BP 108/58; TEMP 97.6; O2SAT 98
[2024-12-06 06:21] VITALS: BP 112/58; TEMP 97.2; O2SAT 98
[2024-12-06] MEDS: IBUPROFEN 400 MG TAB PO PRN (09:21)
[2024-12-06] MEDS: LIDOCAINE 5% PATCH TD ONE (12:05)
[2024-12-06 15:12] VITALS: BP 127/72; TEMP 98.4; O2SAT 98
[2024-12-06 20:34] VITALS: BP 142/82; TEMP 97.3; O2SAT 97
[2024-12-07 06:25] VITALS: BP 136/71; TEMP 98; O2SAT 98
[2024-12-07] MEDS: GABAPENTIN 100 MG CAP PO SCH (15:07)
[2024-12-07 15:56] VITALS: BP 131/78; TEMP 98.1; O2SAT 99
[2024-12-07] MEDS: OLANZapine 5 MG TAB PO SCH (20:17)
[2024-12-08 06:26] VITALS: BP 145/80; TEMP 97.5; O2SAT 98
[2024-12-08] MEDS: ACETAMINOPHEN 325 MG TAB PO PRN (11:48)
[2024-12-08 14:52] VITALS: BP 126/69; TEMP 97.4; O2SAT 99
[2024-12-09 06:24] VITALS: BP 137/63; TEMP 98; O2SAT 97
[2024-12-09] MEDS: GABAPENTIN 100 MG CAP PO SCH (08:01)
[2024-12-09 15:36] VITALS: BP 118/67; TEMP 98.1; O2SAT 98
[2024-12-10 06:24] VITALS: BP 121/58; TEMP 98.4; O2SAT 99
[2024-12-10 15:08] VITALS: BP 124/86; TEMP 98.9; O2SAT 97
[2024-12-10] MEDS: traZODone 50 MG TAB PO PRN (21:29)
[2024-12-11 06:20] VITALS: BP 115/57; TEMP 98.4; O2SAT 97
[2024-12-11] MEDS: PANTOPRAZOLE 20 MG TAB PO SCH (16:18)
[2024-12-11 20:05] VITALS: BP 115/57; TEMP 98.4; O2SAT 97
[2024-12-12 06:34] VITALS: BP 140/72; TEMP 97.5; O2SAT 98
[2024-12-12 15:36] VITALS: BP 115/69; TEMP 98.9; O2SAT 99
[2024-12-12] MEDS: OLANZapine 10 MG TAB PO SCH (20:20)
[2024-12-12] MEDS ORDERED: BUPR150T12 PO (22:11)
[2024-12-12] MEDS ORDERED: PANT20TA51 PO (22:11)
[2024-12-12] MEDS ORDERED: OLAN1TAB20 PO (22:11)
[2024-12-12] MEDS ORDERED: TRAZ-252 PO (22:11)
[2024-12-12] MEDS ORDERED: IBUP-1114 PO (22:11)
[2024-12-12] MEDS ORDERED: GABA-1172 PO (22:11)
[2024-12-12] MEDS ORDERED: HYDR-3363 PO (22:11)
[2024-12-13 06:31] VITALS: BP 132/62; TEMP 97.2; O2SAT 98
== END 2024-12-13 11:28 | disposition home or self-care (01) | DRG 750 ==
LOC: M ED 00:16 → M ED INP 11:12 → M PSY 13:11
PROVIDERS: ADMIT Internal Medicine; ATTEND Internal Medicine
DX: F25.0 Schizoaffective disorder, bipolar type (principal); Z59.00 Homelessness unspecified; R45.851 Suicidal ideations; F15.10 Other stimulant abuse, uncomplicated; F12.10 Cannabis abuse, uncomplicated; F41.9 Anxiety disorder, unspecified; Z56.0 Unemployment, unspecified; K21.9 Gastro-esophageal reflux disease without esophagitis; F17.210 Nicotine dependence, cigarettes, uncomplicated

== ENCOUNTER 2024-12-15 16:50 | Emergency (ER) | payer OTHER ==
[~2024-12-15] VITALS: Ht 180.3 cm; Wt 76.3 kg
[~2024-12-15 16:50] MED LIST changes: +BUPR150T12 PO; +GABA-1172 PO; +HYDR-3363 PO; +IBUP-1114 PO; +PANT20TA51 PO
[2024-12-15 17:30] LABS: PLATELET COUNT, AUTOMATED 192 10^3/uL (150-450)
[2024-12-15 17:50] LABS: BARBITURATES URINE NEGATIVE (NEGATIVE); BENZODIAZEPINES URINE NEGATIVE (NEGATIVE); PHENCYCLIDINE URINE NEGATIVE (NEGATIVE)
[2024-12-15 17:51] LABS: COCAINE METABOLITE URINE NEGATIVE (NEGATIVE); METHADONE URINE NEGATIVE (NEGATIVE); OPIATES URINE NEGATIVE (NEGATIVE)
[2024-12-15 17:53] LABS: ETHYL ALCOHOL (ETHANOL) 0.006 % (0.000-0.010)
[2024-12-15 17:54] LABS: SALICYLATE LEVEL < 3.0 MG/DL (<30)
[2024-12-15 17:55] LABS: ALT/SGPT 136 U/L (7.0-40); AST/SGOT 53 U/L (<34); CALCIUM LEVEL 9.7 MG/DL (8.5-10.1); CARBON DIOXIDE LEVEL 30 MMOL/L (20-31); CHLORIDE LEVEL 101 MMOL/L (98-107); CREATININE FOR GFR 0.85 MG/DL (0.70-1.30); GLOMERULAR FILTRATION RATE > 90.0 (>56); POTASSIUM SERUM 3.6 MMOL/L (3.5-5.1); SODIUM LEVEL 141 MMOL/L (136-145)
[2024-12-15 18:03] LABS: AMPHETAMINES LEVEL URINE POSITIVE (NEGATIVE); CANNABINOIDS URINE POSITIVE (NEGATIVE)
[2024-12-15] MEDS ORDERED: HOME MED LIST COMPLETE! XX SCH (21:25)
[2024-12-16] MEDS ORDERED: GABA-1172 PO (08:28)
[2024-12-16 11:23] VITALS: BP 100/51; TEMP 98; O2SAT 97
== END 2024-12-16 11:25 | disposition home or self-care (01) ==
LOC: M ED 16:50
DX: F19.14 Other psychoactive substance abuse with psychoactive substance-induced mood disorder (principal); F25.0 Schizoaffective disorder, bipolar type; F41.9 Anxiety disorder, unspecified; F12.10 Cannabis abuse, uncomplicated; F17.200 Nicotine dependence, unspecified, uncomplicated; Z79.899 Other long term (current) drug therapy

== ENCOUNTER 2025-01-04 02:15 | Emergency (ER) | payer OTHER ==
[~2025-01-04] VITALS: Ht 180.3 cm; Wt 72.7 kg
[2025-01-04 03:36] LABS: PLATELET COUNT, AUTOMATED 314 10^3/uL (150-450)
[2025-01-04 04:02] LABS: BARBITURATES URINE NEGATIVE (NEGATIVE); BENZODIAZEPINES URINE NEGATIVE (NEGATIVE); METHADONE URINE NEGATIVE (NEGATIVE)
[2025-01-04 04:03] LABS: OPIATES URINE NEGATIVE (NEGATIVE); PHENCYCLIDINE URINE NEGATIVE (NEGATIVE)
[2025-01-04 04:04] LABS: ETHYL ALCOHOL (ETHANOL) < 0.003 % (0.000-0.010)
[2025-01-04 04:06] LABS: SALICYLATE LEVEL < 3.0 MG/DL (<30)
[2025-01-04 04:07] LABS: ALT/SGPT 24 U/L (7.0-40); AST/SGOT 22 U/L (<34); CALCIUM LEVEL 9.6 MG/DL (8.5-10.1); CARBON DIOXIDE LEVEL 23 MMOL/L (20-31); CHLORIDE LEVEL 105 MMOL/L (98-107); CREATININE FOR GFR 0.81 MG/DL (0.70-1.30); GLOMERULAR FILTRATION RATE > 90.0 (>56); POTASSIUM SERUM 4.4 MMOL/L (3.5-5.1); SODIUM LEVEL 138 MMOL/L (136-145)
[2025-01-04 04:13] LABS: AMPHETAMINES LEVEL URINE POSITIVE (NEGATIVE); CANNABINOIDS URINE POSITIVE (NEGATIVE); COCAINE METABOLITE URINE POSITIVE (NEGATIVE)
[2025-01-04] MEDS ORDERED: PANT40TA29 PO (08:36)
[2025-01-04] MEDS ORDERED: BUPR150T12 PO (08:36)
[2025-01-04] MEDS ORDERED: HOME MED LIST COMPLETE! XX SCH (08:40)
[2025-01-04] MEDS ORDERED: OVERDOSE RESCUE KIT XX SCH (10:25)
[2025-01-04 10:28] VITALS: BP 126/62; TEMP 97.1; O2SAT 99
== END 2025-01-04 10:39 | disposition home or self-care (01) ==
LOC: M ED 02:15
DX: F15.188 Other stimulant abuse with other stimulant-induced disorder (principal); I48.91 Unspecified atrial fibrillation; B18.2 Chronic viral hepatitis C; F31.9 Bipolar disorder, unspecified; F17.210 Nicotine dependence, cigarettes, uncomplicated; F10.10 Alcohol abuse, uncomplicated; Z79.899 Other long term (current) drug therapy